=== PATIENT | female | born 1945 | race Caucasian/White ===

== ENCOUNTER → 2021-09-16 11:54 | Outpatient (BNVA) | payer MEDICARE, SELFPAY | PROVIDERS: Visit Provider Nurse Practitioner Family | DX: E55.9 Vitamin D deficiency, unspecified (principal); Z92.3 Personal history of irradiation; Z79.899 Other long term (current) drug therapy; Z13.6 Encounter for screening for cardiovascular disorders; I10 Essential (primary) hypertension; F41.9 Anxiety disorder, unspecified; F32.A Depression, unspecified; Z76.89 Persons encountering health services in other specified circumstances | CPT/HCPCS: 80053; 80061; 81003; 82306; 83036; 84436; 84439; 84443; 84480; 85025 ==

== ENCOUNTER → 2021-10-07 10:23 | Outpatient (BNVA) | payer MEDICARE, MEDICAID, SELFPAY | PROVIDERS: PCP Nurse Practitioner Family; Visit Provider Internal Medicine | DX: E89.0 Postprocedural hypothyroidism (principal); Z92.3 Personal history of irradiation; E04.1 Nontoxic single thyroid nodule | CPT/HCPCS: 99204 ==

== ENCOUNTER → 2021-11-11 15:10 | Outpatient (BNVA) | payer MEDICARE, SELFPAY | PROVIDERS: PCP Nurse Practitioner Family; Visit Provider Nurse Practitioner Family | DX: E03.9 Hypothyroidism, unspecified (principal) | CPT/HCPCS: 83516; 84439; 84480; 86800 ==

== ENCOUNTER → 2021-12-07 09:48 | Outpatient (BNVA) | payer MEDICARE, MEDICAID, SELFPAY | PROVIDERS: PCP Nurse Practitioner Family; Visit Provider Internal Medicine | DX: E89.0 Postprocedural hypothyroidism (principal); E04.1 Nontoxic single thyroid nodule | CPT/HCPCS: 84439; 84443; 84480; 86376 ==

== ENCOUNTER 2021-12-16 09:51 | Outpatient (CLI) | payer MEDICARE, MEDICAID, SELFPAY ==
--- NOTE | 2021-12-16 10:15 | US_ITS ---
WS: [id number] THYROID ULTRASOUND HISTORY: thyroid nodules COMPARISON: None available. Right lobe: 1.5 cm x 2.1 cm x 5.0 cm (w x ap x l). Volume: 8.3 cm3. Mildly enlarged heterogeneous thyroid. There is a mixture of increased echogenicity and decreased ech ogenicity with increased vascularity. The entire gland is very nodular without a discrete focal nodul e or calcification. Left lobe: 1.4 cm x 1.5 cm x 2.1 cm (w x ap x l). Volume: 2.3 cm3. Small thyroid. Thyroid is very heterogeneous with multiple small nodules of variable echogenicity and increased vascularity. There is no discrete nodule which is more suspicious than another. No calcifi cations. Isthmus: 0.4 cm. US/US thyroid [id number] IMPRESSION: 1. Enlarged heterogeneous nodular goiter, bilateral. Diffuse increased vascula rity. There are numerous nodules which are ill-defined. There is no one discret e nodule which is more concerning than another. The entire gland is nodular. Th yroid neoplasm would be difficult to exclude or localized. 2. No adenopathy.
== END 2021-12-16 09:52 | disposition home or self-care (01) ==
LOC: RAD 09:57
PROVIDERS: PCP Nurse Practitioner Family; Visit Provider Internal Medicine
DX: E03.9 Hypothyroidism, unspecified (principal)
CPT/HCPCS: 76536

== ENCOUNTER → 2021-12-17 09:18 | Outpatient (BNVA) | payer MEDICARE, MEDICAID, SELFPAY | PROVIDERS: PCP Nurse Practitioner Family; Visit Provider Internal Medicine | DX: F32.A Depression, unspecified (principal); F41.9 Anxiety disorder, unspecified | CPT/HCPCS: 84439 ==

== ENCOUNTER → 2021-12-18 09:56 | Outpatient (BNVA) | payer MEDICARE, MEDICAID, SELFPAY | PROVIDERS: PCP Nurse Practitioner Family; Visit Provider Internal Medicine | DX: E05.00 Thyrotoxicosis with diffuse goiter without thyrotoxic crisis or storm (principal); E04.1 Nontoxic single thyroid nodule; E89.0 Postprocedural hypothyroidism; F41.9 Anxiety disorder, unspecified; F32.A Depression, unspecified; Z92.3 Personal history of irradiation | CPT/HCPCS: 99214 ==

== ENCOUNTER → 2022-01-14 08:16 | Outpatient (BNVA) | payer MEDICARE, MEDICAID, SELFPAY | PROVIDERS: PCP Nurse Practitioner Family; Visit Provider Internal Medicine | DX: E04.1 Nontoxic single thyroid nodule (principal); E05.00 Thyrotoxicosis with diffuse goiter without thyrotoxic crisis or storm; F32.A Depression, unspecified; F41.9 Anxiety disorder, unspecified | CPT/HCPCS: 84439; 84443; 84480 ==

== ENCOUNTER → 2022-01-15 09:25 | Outpatient (BNVA) | payer MEDICARE, MEDICAID, SELFPAY | PROVIDERS: PCP Nurse Practitioner Family; Visit Provider Internal Medicine | DX: E89.0 Postprocedural hypothyroidism (principal); E05.00 Thyrotoxicosis with diffuse goiter without thyrotoxic crisis or storm; E04.1 Nontoxic single thyroid nodule; F41.9 Anxiety disorder, unspecified; F32.A Depression, unspecified; Z92.3 Personal history of irradiation | CPT/HCPCS: 99214 ==

== ENCOUNTER → 2022-03-19 08:48 | Outpatient (BNVA) | payer MEDICARE, MEDICAID, SELFPAY | PROVIDERS: PCP Nurse Practitioner Family; Visit Provider Internal Medicine | DX: E04.1 Nontoxic single thyroid nodule (principal); E05.00 Thyrotoxicosis with diffuse goiter without thyrotoxic crisis or storm; E89.0 Postprocedural hypothyroidism; F32.A Depression, unspecified; F41.9 Anxiety disorder, unspecified | CPT/HCPCS: 84439; 84443; 84480 ==

== ENCOUNTER → 2022-03-22 09:41 | Outpatient (BNVA) | payer MEDICARE, MEDICAID, SELFPAY | PROVIDERS: PCP Nurse Practitioner Family; Visit Provider Internal Medicine | DX: E04.1 Nontoxic single thyroid nodule (principal); E89.0 Postprocedural hypothyroidism; E05.90 Thyrotoxicosis, unspecified without thyrotoxic crisis or storm; E05.00 Thyrotoxicosis with diffuse goiter without thyrotoxic crisis or storm; F41.9 Anxiety disorder, unspecified; F32.A Depression, unspecified; Z92.3 Personal history of irradiation | CPT/HCPCS: 99214 ==

== ENCOUNTER → 2022-05-26 09:02 | Outpatient (BNVA) | payer MEDICARE, MEDICAID, SELFPAY | PROVIDERS: PCP Nurse Practitioner Family; Visit Provider Internal Medicine | DX: E04.1 Nontoxic single thyroid nodule (principal); E05.00 Thyrotoxicosis with diffuse goiter without thyrotoxic crisis or storm; F32.A Depression, unspecified; F41.9 Anxiety disorder, unspecified | CPT/HCPCS: 84439; 84443; 84480 ==

== ENCOUNTER → 2022-05-27 10:36 | Outpatient (BNVA) | payer MEDICARE, MEDICAID, SELFPAY | PROVIDERS: PCP Nurse Practitioner Family; Visit Provider Internal Medicine | DX: Z92.3 Personal history of irradiation (principal); E89.0 Postprocedural hypothyroidism; E05.00 Thyrotoxicosis with diffuse goiter without thyrotoxic crisis or storm; E05.90 Thyrotoxicosis, unspecified without thyrotoxic crisis or storm; E04.1 Nontoxic single thyroid nodule | CPT/HCPCS: 99214 ==

== ENCOUNTER 2022-06-16 13:40 | Outpatient (CLI) | payer MEDICARE, MEDICAID, SELFPAY ==
--- NOTE | 2022-06-16 13:30 | US_ITS ---
WS: [id number] THYROID ULTRASOUND HISTORY: thyroid nodule, COMPARISON: 12/16/2021 Right lobe: 1.5 cm x 2.0 cm x 4.5 cm (w x ap x l). Volume: 6.8 cm3. Enlarged nodular thyroid similar to the prior study. These nodules are ill-defined and hyperechoic to the remaining gland. Hyperechoic nodules are typically less concerning. There is increased vasculari ty throughout the gland. There is no one discrete nodule more concerning than another. No echogenic f oci. Left lobe: 1.3 cm x 1.6 cm x 3.8 cm (w x ap x l). Volume: 4.0 cm3. Mildly enlarged heterogeneous gland with multiple ill-defined nodules. Predominantly hyperechoic nodu les. Gland is hypervascular. Isthmus: 0.4 cm. US/US thyroid [id number] IMPRESSION: 1. No interval change in appearance of the mildly enlarged, hypervascular mult inodular thyroid gland. 2. Nodules are predominantly hyperechoic which are typically less concerning t maurice hypoechoic lesions. There is no enlarging nodule or specific nodule that ap pears more concerning than another.
== END 2022-06-16 13:41 | disposition home or self-care (01) ==
LOC: RAD 13:42
PROVIDERS: PCP Nurse Practitioner Family; Visit Provider Internal Medicine
DX: E05.00 Thyrotoxicosis with diffuse goiter without thyrotoxic crisis or storm (principal); E04.1 Nontoxic single thyroid nodule; E89.0 Postprocedural hypothyroidism
CPT/HCPCS: 76536

== ENCOUNTER → 2022-07-22 09:57 | Outpatient (BNVA) | payer MEDICARE, MEDICAID, SELFPAY | PROVIDERS: Visit Provider Internal Medicine | DX: E89.0 Postprocedural hypothyroidism (principal); E03.9 Hypothyroidism, unspecified; E04.1 Nontoxic single thyroid nodule | CPT/HCPCS: 84439; 84443; 84480 ==

== ENCOUNTER → 2022-07-26 10:48 | Outpatient (BNVA) | payer MEDICARE, MEDICAID, SELFPAY | PROVIDERS: Visit Provider Internal Medicine | DX: E05.90 Thyrotoxicosis, unspecified without thyrotoxic crisis or storm (principal); E05.00 Thyrotoxicosis with diffuse goiter without thyrotoxic crisis or storm; E04.1 Nontoxic single thyroid nodule; F41.9 Anxiety disorder, unspecified; F32.A Depression, unspecified; Z92.3 Personal history of irradiation | CPT/HCPCS: 99214 ==

== ENCOUNTER → 2022-09-21 09:49 | Outpatient (BNVA) | payer MEDICARE, MEDICAID, SELFPAY | PROVIDERS: Visit Provider Internal Medicine | DX: E05.90 Thyrotoxicosis, unspecified without thyrotoxic crisis or storm (principal); F32.A Depression, unspecified; F41.9 Anxiety disorder, unspecified; E04.1 Nontoxic single thyroid nodule; E89.0 Postprocedural hypothyroidism | CPT/HCPCS: 84439; 84443 ==

== ENCOUNTER → 2022-09-23 10:52 | Outpatient (BNVA) | payer MEDICARE, MEDICAID, SELFPAY | PROVIDERS: Visit Provider Internal Medicine | DX: E89.0 Postprocedural hypothyroidism (principal); E05.00 Thyrotoxicosis with diffuse goiter without thyrotoxic crisis or storm; E05.90 Thyrotoxicosis, unspecified without thyrotoxic crisis or storm; E04.1 Nontoxic single thyroid nodule; Z92.3 Personal history of irradiation; F41.9 Anxiety disorder, unspecified; F32.A Depression, unspecified | CPT/HCPCS: 99214 ==

== ENCOUNTER → 2022-12-20 09:05 | Outpatient (BNVA) | payer MEDICARE, MEDICAID, SELFPAY | PROVIDERS: Visit Provider Internal Medicine | DX: E05.90 Thyrotoxicosis, unspecified without thyrotoxic crisis or storm (principal); F32.A Depression, unspecified; F41.9 Anxiety disorder, unspecified | CPT/HCPCS: 84439; 84443; 84480 ==

== ENCOUNTER → 2022-12-23 10:07 | Outpatient (BNVA) | payer MEDICARE, MEDICAID, SELFPAY | PROVIDERS: Visit Provider Internal Medicine | DX: E05.90 Thyrotoxicosis, unspecified without thyrotoxic crisis or storm (principal); E05.00 Thyrotoxicosis with diffuse goiter without thyrotoxic crisis or storm; E04.1 Nontoxic single thyroid nodule; E89.0 Postprocedural hypothyroidism; Z92.3 Personal history of irradiation; Z79.890 Hormone replacement therapy | CPT/HCPCS: 99214 ==

== ENCOUNTER → 2023-02-17 08:31 | Outpatient (BNVA) | payer MEDICARE, MEDICAID, SELFPAY | PROVIDERS: PCP Internal Medicine; Visit Provider Internal Medicine | DX: E05.90 Thyrotoxicosis, unspecified without thyrotoxic crisis or storm (principal); E04.1 Nontoxic single thyroid nodule | CPT/HCPCS: 84439; 84443; 84480 ==

== ENCOUNTER → 2023-02-22 09:02 | Outpatient (BNVA) | payer MEDICARE, MEDICAID, SELFPAY | PROVIDERS: PCP Internal Medicine; Visit Provider Internal Medicine | DX: E05.90 Thyrotoxicosis, unspecified without thyrotoxic crisis or storm (principal); E05.00 Thyrotoxicosis with diffuse goiter without thyrotoxic crisis or storm; E89.0 Postprocedural hypothyroidism; E04.1 Nontoxic single thyroid nodule; Z92.3 Personal history of irradiation; Z79.890 Hormone replacement therapy | CPT/HCPCS: 99214 ==

== ENCOUNTER 2023-03-10 10:08 | Outpatient (CLI) | payer MEDICARE, MEDICAID, SELFPAY ==
--- NOTE | 2023-03-10 10:45 | US_ITS ---
WS: [id number] Thyroid ultrasound, 03/10/2023 Clinical Data: thyroid nodule Comparison: Thyroid ultrasound, 06/16/2022 Findings: The right lobe of thyroid measures 4.5 cm x 1.4 cm x 1.8 cm. The left lobe measures 3.4 cm x 1.2 cm x 1.4 cm. The isthmus measured 0.2 mm. The echotexture of the thyroid is mixed. Both lobes of the thyroid show unchanged nodules. The larges t right lobe nodule measures 0.73 x 0.76 x 0.87 cm. There are unchanged lymph nodes inferior to the l eft submandibular gland. US/US thyroid [id number] Impression: Unchanged multinodular goiter.
== END 2023-03-10 10:09 | disposition home or self-care (01) ==
LOC: RAD 10:12
PROVIDERS: PCP Internal Medicine; Visit Provider Internal Medicine
DX: E04.1 Nontoxic single thyroid nodule (principal)
CPT/HCPCS: 76536

== ENCOUNTER → 2023-05-02 08:34 | Outpatient (BNVA) | payer MEDICARE, MEDICAID, SELFPAY | PROVIDERS: PCP Internal Medicine; Visit Provider Internal Medicine | DX: E04.1 Nontoxic single thyroid nodule (principal); E05.00 Thyrotoxicosis with diffuse goiter without thyrotoxic crisis or storm; E89.0 Postprocedural hypothyroidism; F32.A Depression, unspecified; F41.9 Anxiety disorder, unspecified; Z92.3 Personal history of irradiation | CPT/HCPCS: 84439 ==

== ENCOUNTER → 2023-05-04 09:56 | Outpatient (BNVA) | payer MEDICARE, MEDICAID, SELFPAY | PROVIDERS: PCP Nurse Practitioner; Visit Provider Internal Medicine | DX: E05.90 Thyrotoxicosis, unspecified without thyrotoxic crisis or storm (principal); Z92.3 Personal history of irradiation; E89.0 Postprocedural hypothyroidism; E05.00 Thyrotoxicosis with diffuse goiter without thyrotoxic crisis or storm; E04.1 Nontoxic single thyroid nodule; Z79.890 Hormone replacement therapy | CPT/HCPCS: 99214 ==

== ENCOUNTER → 2023-06-30 08:17 | Outpatient (BNVA) | payer MEDICARE, MEDICAID, SELFPAY | PROVIDERS: PCP Nurse Practitioner; Visit Provider Internal Medicine | DX: E04.1 Nontoxic single thyroid nodule (principal); E05.00 Thyrotoxicosis with diffuse goiter without thyrotoxic crisis or storm; E89.0 Postprocedural hypothyroidism; Z92.3 Personal history of irradiation; F32.A Depression, unspecified; F41.9 Anxiety disorder, unspecified; E03.9 Hypothyroidism, unspecified | CPT/HCPCS: 84439; 84443; 84480 ==

== ENCOUNTER → 2023-07-04 13:34 | Outpatient (BNVA) | payer MEDICARE, MEDICAID, SELFPAY | PROVIDERS: PCP Nurse Practitioner; Visit Provider Internal Medicine | DX: F41.9 Anxiety disorder, unspecified (principal); F32.A Depression, unspecified; E05.90 Thyrotoxicosis, unspecified without thyrotoxic crisis or storm; Z92.3 Personal history of irradiation; E89.0 Postprocedural hypothyroidism; E05.00 Thyrotoxicosis with diffuse goiter without thyrotoxic crisis or storm; E04.1 Nontoxic single thyroid nodule; Z79.890 Hormone replacement therapy | CPT/HCPCS: 99214 ==

== ENCOUNTER → 2023-08-24 08:39 | Outpatient (BNVA) | payer MEDICARE, MEDICAID, SELFPAY | PROVIDERS: PCP Nurse Practitioner; Visit Provider Internal Medicine | DX: E04.1 Nontoxic single thyroid nodule (principal); E05.00 Thyrotoxicosis with diffuse goiter without thyrotoxic crisis or storm; E89.0 Postprocedural hypothyroidism; F32.A Depression, unspecified; F41.9 Anxiety disorder, unspecified; Z92.3 Personal history of irradiation; E03.9 Hypothyroidism, unspecified | CPT/HCPCS: 84439; 84443 ==

== ENCOUNTER → 2023-11-08 10:16 | Outpatient (BNVA) | payer MEDICARE, MEDICAID, SELFPAY | PROVIDERS: PCP Nurse Practitioner; Visit Provider Internal Medicine | DX: F41.9 Anxiety disorder, unspecified (principal); F32.A Depression, unspecified; E89.0 Postprocedural hypothyroidism; E05.00 Thyrotoxicosis with diffuse goiter without thyrotoxic crisis or storm; E04.1 Nontoxic single thyroid nodule; E55.9 Vitamin D deficiency, unspecified; Z79.899 Other long term (current) drug therapy | CPT/HCPCS: 80053; 80061; 81003; 82306; 83036; 84439; 84443; 84480; 85025 ==

== ENCOUNTER → 2023-11-17 11:00 | Outpatient (BNVA) | payer MEDICARE, MEDICAID, SELFPAY | PROVIDERS: PCP Nurse Practitioner Family; Visit Provider Internal Medicine | DX: E89.0 Postprocedural hypothyroidism (principal); Z92.3 Personal history of irradiation; E05.00 Thyrotoxicosis with diffuse goiter without thyrotoxic crisis or storm; E04.1 Nontoxic single thyroid nodule; R42 Dizziness and giddiness; Z79.890 Hormone replacement therapy | CPT/HCPCS: 99214 ==

== ENCOUNTER → 2024-01-30 08:31 | Outpatient (BNVA) | payer MEDICARE, MEDICAID, SELFPAY | PROVIDERS: PCP Nurse Practitioner Family; Visit Provider Internal Medicine | DX: E89.0 Postprocedural hypothyroidism (principal) | CPT/HCPCS: 84439; 84443 ==

== ENCOUNTER → 2024-02-01 11:14 | Outpatient (BNVA) | payer MEDICARE, MEDICAID, SELFPAY | PROVIDERS: PCP Nurse Practitioner Family; Visit Provider Internal Medicine | DX: Z92.3 Personal history of irradiation; E05.00 Thyrotoxicosis with diffuse goiter without thyrotoxic crisis or storm; E89.0 Postprocedural hypothyroidism; E04.1 Nontoxic single thyroid nodule; Z79.890 Hormone replacement therapy | CPT/HCPCS: 99214 ==

== ENCOUNTER 2024-02-15 08:34 | Outpatient (CLI) | payer MEDICARE, MEDICAID, SELFPAY ==
--- NOTE | 2024-02-15 09:00 | US_ITS ---
WS: [id number] THYROID ULTRASOUND HISTORY: thyroid nodules COMPARISON: 03/10/2023 Right lobe: 1.3 cm x 2.0 cm x 3.2 cm (w x ap x l). Volume: 3.8 cm3. Small atrophic nodular thyroid. Very heterogeneous remaining gland. There is no discrete mass identif ied. Ill-defined nodular appearance of the gland. Left lobe: 1.0 cm x 1.8 cm x 3.8 cm (w x ap x l). Volume: 3.2 cm3. Small nodular heterogeneous thyroid. Small nodules confluently throughout the gland. No increased vas cularity. Isthmus: No isthmus thyroid tissue identified. No adenopathy. IMPRESSION: 1. By history status post removal of the isthmus portion of the thyroid gland. 2. Atrophic very nodular heterogeneous gland remains. Similar to the study of 03/10/2023. No discrete mass or nodule identified that has changed.
== END 2024-02-15 08:35 | disposition home or self-care (01) ==
LOC: RAD 08:35
PROVIDERS: PCP Nurse Practitioner Family; Visit Provider Internal Medicine
DX: E04.1 Nontoxic single thyroid nodule (principal); E89.0 Postprocedural hypothyroidism; E05.90 Thyrotoxicosis, unspecified without thyrotoxic crisis or storm
CPT/HCPCS: 76536

== ENCOUNTER → 2024-03-30 08:34 | Outpatient (BNVA) | payer MEDICARE, MEDICAID, SELFPAY | PROVIDERS: PCP Nurse Practitioner Family; Visit Provider Internal Medicine | DX: F32.A Depression, unspecified (principal); F41.9 Anxiety disorder, unspecified; E05.90 Thyrotoxicosis, unspecified without thyrotoxic crisis or storm; Z92.3 Personal history of irradiation; E05.00 Thyrotoxicosis with diffuse goiter without thyrotoxic crisis or storm; E89.0 Postprocedural hypothyroidism; E03.9 Hypothyroidism, unspecified; E04.1 Nontoxic single thyroid nodule | CPT/HCPCS: 84439; 84443; 84480 ==

== ENCOUNTER → 2024-04-03 10:47 | Outpatient (BNVA) | payer MEDICARE, MEDICAID, SELFPAY | PROVIDERS: PCP Nurse Practitioner Family; Visit Provider Internal Medicine | DX: E05.00 Thyrotoxicosis with diffuse goiter without thyrotoxic crisis or storm; E04.1 Nontoxic single thyroid nodule; Z92.3 Personal history of irradiation; E89.0 Postprocedural hypothyroidism; Z79.890 Hormone replacement therapy | CPT/HCPCS: 99214 ==

== ENCOUNTER → 2024-07-24 08:09 | Outpatient (BNVA) | payer MEDICARE, MEDICAID, SELFPAY | PROVIDERS: PCP Nurse Practitioner Family; Visit Provider Internal Medicine | DX: F32.A Depression, unspecified (principal); F41.9 Anxiety disorder, unspecified; E05.90 Thyrotoxicosis, unspecified without thyrotoxic crisis or storm; E05.00 Thyrotoxicosis with diffuse goiter without thyrotoxic crisis or storm; E04.1 Nontoxic single thyroid nodule | CPT/HCPCS: 84439; 84443; 84480 ==

== ENCOUNTER → 2024-07-30 10:55 | Outpatient (BNVA) | payer MEDICARE, MEDICAID, SELFPAY | PROVIDERS: PCP Nurse Practitioner Family; Visit Provider Internal Medicine | DX: F41.9 Anxiety disorder, unspecified (principal); F32.A Depression, unspecified; Z92.3 Personal history of irradiation; E89.0 Postprocedural hypothyroidism; E05.00 Thyrotoxicosis with diffuse goiter without thyrotoxic crisis or storm; E04.1 Nontoxic single thyroid nodule; R63.5 Abnormal weight gain; Z79.890 Hormone replacement therapy; Z68.34 Body mass index [BMI] 34.0-34.9, adult | CPT/HCPCS: 99214 ==

== ENCOUNTER → 2025-01-14 08:12 | Outpatient (BNVA) | payer MEDICARE, MEDICAID, SELFPAY | PROVIDERS: PCP Nurse Practitioner Family; Visit Provider Internal Medicine | DX: F32.A Depression, unspecified (principal); F41.9 Anxiety disorder, unspecified | CPT/HCPCS: 84439; 84443 ==

== ENCOUNTER → 2025-01-16 10:07 | Outpatient (BNVA) | payer MEDICARE, MEDICAID, SELFPAY | PROVIDERS: PCP Nurse Practitioner Family; Visit Provider Internal Medicine | DX: F41.9 Anxiety disorder, unspecified (principal); F32.A Depression, unspecified; E05.90 Thyrotoxicosis, unspecified without thyrotoxic crisis or storm; Z92.3 Personal history of irradiation; E89.0 Postprocedural hypothyroidism; E05.00 Thyrotoxicosis with diffuse goiter without thyrotoxic crisis or storm; E04.1 Nontoxic single thyroid nodule; R63.5 Abnormal weight gain | CPT/HCPCS: 99214 ==

== ENCOUNTER → 2025-03-11 09:56 | Outpatient (BNVA) | payer MEDICARE, MEDICAID, SELFPAY | PROVIDERS: PCP Nurse Practitioner Family; Visit Provider Internal Medicine | DX: F41.9 Anxiety disorder, unspecified (principal); F32.A Depression, unspecified; I10 Essential (primary) hypertension; Z79.899 Other long term (current) drug therapy; Z13.6 Encounter for screening for cardiovascular disorders | CPT/HCPCS: 80053; 80061; 81003; 82306; 83036; 84439; 84443; 85025 ==

== ENCOUNTER → 2025-03-20 08:51 | Outpatient (BNVA) | payer MEDICARE, MEDICAID, SELFPAY | PROVIDERS: PCP Nurse Practitioner Family; Visit Provider Internal Medicine | DX: E05.90 Thyrotoxicosis, unspecified without thyrotoxic crisis or storm (principal); E89.0 Postprocedural hypothyroidism; E05.00 Thyrotoxicosis with diffuse goiter without thyrotoxic crisis or storm; E04.1 Nontoxic single thyroid nodule | CPT/HCPCS: 99214 ==

== ENCOUNTER → 2025-07-15 10:07 | Outpatient (BNVA) | payer MEDICARE, MEDICAID, SELFPAY | PROVIDERS: PCP Nurse Practitioner Family; Visit Provider Internal Medicine | DX: F32.A Depression, unspecified (principal); F41.9 Anxiety disorder, unspecified; E05.90 Thyrotoxicosis, unspecified without thyrotoxic crisis or storm | CPT/HCPCS: 84439; 84443; 84480 ==

== ENCOUNTER → 2025-07-17 09:00 | Outpatient (BNVA) | payer MEDICARE, MEDICAID, SELFPAY | PROVIDERS: PCP Nurse Practitioner Family; Visit Provider Internal Medicine | DX: E05.00 Thyrotoxicosis with diffuse goiter without thyrotoxic crisis or storm (principal); Z92.3 Personal history of irradiation; Z90.89 Acquired absence of other organs; Z98.890 Other specified postprocedural states; E04.1 Nontoxic single thyroid nodule; R63.5 Abnormal weight gain | CPT/HCPCS: 99214 ==

== ENCOUNTER 2025-08-10 13:25 | Inpatient (IN) | payer MEDICARE, MEDICAID, SELFPAY ==
--- OUTSIDE RECORDS SUMMARY | 2025-08-06 16:50 | XMS_ITS | Encounter Summary ---
Author Organization [facility] Address [address] [place] [address] Care Team Providers Care Manager Stone Name Role Phone Unavailable Primary Care Provider Unavailabl e Reason for Visit * Reason Comments Abdominal Pain Encounter Details Date Type Department Care Team (Late st Contact Info) Description 08/06/2025 4:50 PM CDT - 08/06/2025 6:19 PM CDT Emergency [facility] Emergency Medicine [address] [address] Rich Jaocbs MD [address] [facility] [address] [place] [address] Chronic idiopathic constipation (Primary Dx); Asymptomatic bacteriuria Discharge Disposition: Home or Self Care Social History Tobacco Use Types Packs/Day Years Used Date Smoking Tobacco: Never Alcohol Use Standard Drinks/Week Comments No 0 (1 standard drink = 0.6 oz pur e alcohol) Food Insecurity Answer Date Recorded Do you find you are eating l ess than you should because you can t pay for food? No 08/06/2025 Transportation Needs Answer Date Record ed Have you gone without health care because you didn t have a way to get there? Or worry about transportation for future doctor visits, berry picker medication, etc.? No 2024 Housing Stability Answer Date Recorded Do you worry you won t have a steady place to sleep or struggle to pay rent or mortgage? No 08/06/2025 Utility Needs Answer Date Recorded Do you have difficulty payin g for utility costs (electric, water or gas bills)? No 08/06/2025 Feeling Safe Answer Date Recorded Are you in a relationship wi th someone who hurts you emotionally and/or physically? No 08/06/2025 Comments No Sex and Gender Information Value Date Recorded Sex Assigned at Not on file Legal Sex Female 11:35 AM [employer] Gender Identity Not on file Sexual Orientation Not on file documented as of this encounter Last Filed Vital Signs Vital Sign Reading Time Taken Comments Blood Pressure 143/91 08/06/2025 6:15 PM CDT Pulse 88 08/06/2025 6:15 PM CDT Temperature 36.8 C (98.2 F) 08/06/2025 4:54 PM CDT Respiratory Rate 16 08/06/2025 6:15 PM CDT Oxygen Saturation 99% 08/06/2025 6:15 PM CDT Inhaled Oxygen Concentration - - Weight 79.6 kg (175 lb 6.4 oz) 08/06/2025 4:54 P M CDT Height 162.6 cm (5' 4 ) 08/06/2025 4:54 PM CDT Body Mass Index 30.11 08/06/2025 4:54 PM CDT documented in this encounter Discharge Instructions * Discharge Instructions* Rich Jacobs MD - 08/06/2025 6:12 PM CDT Please use the Fleet enema to help with removing the stool from the rectum and the sigmoid colon aswas shown on the x-ray for you. Please also continue taking the proper dose of your levothyroxine for the thyroid, since it may play a significant role in your constipation symptoms. Please consider using MiraLAX and drinking lots of water and if you have lots of bowel movements, ensure that you are drinking either Pedialyte or Gatorade to replenish the fluid that may come out with the stool. If you do not have any success with the MiraLAX and Fleet enema, you may consider using lactulose that has been sent to your pharmacy. First you can use 20-30 g and if you have no success you may have to wait for about 4-5 hours before you should consider taking another dose of 20 g. If you have more than 3-4 bowel movements that are large, make sure that you are drinking plenty offluids again to replenish the electrolytes and fluids that you lose. If you have no improvement in your symptoms, return to the emergency department for reevaluation. * Attachments The following attachments cannot be sent through Care Everywhere. * Lactulose (Djiboutian) * Constipation (Djiboutian) documented in this encounter Medications at Time of Discharge levothyroxine 50 mcg tablet Take 50 mcg by mouth daily in the morning. enalapril-hydroCH LOROthiazide (VASERETIC) 10-25 mg Tablet Take 1 Tablet by mouth daily. escitalopram oxalate (LEXAPRO) 10 mg tablet Take 10 mg by mouth daily. lactulose (ENULOSE) 10 gram/15 mL oral solution Take 45 mL by mouth 1 time daily as needed for Constipation. 90 mL 08/06/2025 08/08/2025 documented as of this encounter ED Notes * Rukhsana Latham RN - 08/06/2025 5:02 PM CDT Provider at bedside. * Rukhsana Latham RN - 08/06/2025 4:58 PM CDT Patient arrived to the ED via private vehicle. Patient complains of lower abdominal pain for 2 months and it is intermittently. Patient states she had a BM 3 days ago and that is normal for her. Patient denies loose stools and denies fever. Patient also denies nausea and vomiting. Patient states she has been passing a lot of gas until 2 weeks about and now she is feeling like she is burping a lot. Patient denies pain during thi triage but states the pain hits every 15 minutes. Patient states she has a appt to see her PCP tomorrow morning but her daughter wanted her to be seen tonight due to her daughter going out of town tomorrow. * Rich Jacobs MD - 08/06/2025 4:48 PM CDT 08/06/25 5:11 PM HISTORY OF PRESENT ILLNESS History of Present Illness This is a patient with a history of hypothyroidism presenting with abdominal pain and constipation. The patient reports experiencing severe abdominal pain every 15 minutes, which subsides quickly. This has been ongoing for approximately a month. Initially, she was passing gas frequently, but this has ceased and she has started belching. She describes a sensation of her stomach rumbling. Her last bowel movement was 3 days ago, which is typical for her. Prior to this, she had small, infrequent bowel movements. She does not experience any pain or difficulty with urination or increased frequency of urination. Her stools are not hard, and she has not vomited. She has tried MiraLAX without success and occasionally uses a stool softener. The patient has thyroid disease and takes levothyroxine. Her thyroid was last checked [address] Moran in [place], and she is scheduled to see her again in September. Her levels were low, so her medication dose was increased. She reports feeling unwell when her thyroid levels are off, butfeels better and more active when her medication is adjusted. She also notes hair loss when her thyroid levels are low. The patient has had two falls at home in the last month, but stated that it was mechanical due to slipper she was wearing. PAST SURGICAL HISTORY: , cholecystectomy, partial hysterectomy (retains ovaries). PAST MEDICAL HISTORY REVIEWED MEDICAL: Patient has no past medical history on file. SURGICAL: Patient has a past surgical history that includes section; hysterectomy; wrist fracture tx; ankle fracture tx; thyroid surgery; and cholecystectomy. ALLERGIES Codeine, Penicillin, and Sulfa (sulfonamide antibiotics) PHYSICAL EXAM INITIAL VS BP: 135/85 (08/06/251653), Heart Rate: 95 bpm (08/06/251653), Resp: 20 (08/06/251653), Pulse: 82(08/06/25 1730), Temp: 98.2 ??F (36.8 ??C) (08/06/251653), Temp src: Temporal (08/06/251653), SpO2: 96 % (08/06/251653), Height: 5' 4 (162.6 cm) (08/06/251653), Weight: 79.6 kg (175 lb 6.4 oz) (08/06/251653), BMI (Calculated): (!) 30.11 (08/06/251653) No LMP recorded. Patient is postmenopausal. Blood pressure (!) 143/91, pulse 88, temperature 98.2 ??F (36.8 ??C), temperature source Temporal, resp. rate 16, height 5' 4 (1.626 m), weight 79.6 kg (175 lb 6.4 oz), SpO2 99%. Physical Exam Vitals and nursing note reviewed. Constitutional: General: She is not in acute distress. Appearance: Normal appearance. She is well-developed. She is obese. She is not ill-appearing. HENT: Head: Normocephalic. Mouth/Throat: Mouth: Mucous membranes are moist. Eyes: General: No scleral icterus. Extraocular Movements: Extraocular movements intact. Conjunctiva/sclera: Conjunctivae normal. Pupils: Pupils are equal, round, and reactive to light. Cardiovascular: Rate and Rhythm: Normal rate and regular rhythm. Pulses: Normal pulses. Pulmonary: Effort: Pulmonary effort is normal. No respiratory distress. Abdominal: General: A surgical scar is present. Palpations: Abdomen is soft. Tenderness: There is abdominal tenderness in the periumbilical area, left upper quadrant and left lower quadrant. There is no right CVA tenderness, left CVA tenderness, guarding or rebound. Negative signs include Donovan's sign, Rovsing's sign and McBurney's sign. Hernia: No hernia is present. Comments: Multiple surgical scars. Abdomen is irregular in shape from the surgical interventions. Musculoskeletal: General: Normal range of motion. Cervical back: Normal range of motion and neck supple. Skin: General: Skin is warm and dry. Capillary Refill: Capillary refill takes less than 2 seconds. Coloration: Skin is not jaundiced or pale. Neurological: General: No focal deficit present. Mental Status: She is alert and oriented to person, place, and time. Mental status is at baseline. Cranial Nerves: No cranial nerve deficit. Psychiatric: Mood and Affect: Mood normal. Behavior: Behavior normal. DIAGNOSTICS LAB: URINALYSIS WITH REFLEX MICROSCOPIC - Abnormal Result Value COLOR UA Yellow CLARITY UA Clear SPECIFIC GRAVITY UA 1.015 PH UA 5.5 LEUKOCYTE ESTERASE UA 1+ (*) NITRITE UA Negative PROTEIN UA Negative GLUCOSE UA Negative KETONES UA Negative UROBILINOGEN UA 0.2 BILIRUBIN UA Negative BLOOD UA 1+ (*) URINALYSIS MICROSCOPY ONLY - Abnormal WBC UA 0-2 RBC UA 0-2 BACTERIA UA 1+ (*) EPITHELIAL CELLS, URINE 0-5 URINE CULTURE RADIOLOGY: XR ABDOMEN 1 VW Radiologist Impression IMPRESSION: Stool burden is greater than average. The bowel gas pattern appears nonobstructive. Cholecystectomy clips. Elevation of the right hemidiaphragm. PROCEDURES Procedures MEDICAL DECISION MAKING AND PLAN OF CARE Assessment & Plan Initial Assessment: Symptoms suggest constipation with significant gas accumulation. The abdominal x-ray confirmed a substantial stool burden without any signs of obstruction. The urine test revealed asymptomatic bacteriuria, which does not require antibiotic treatment unless symptoms develop. ED Course: - Abdominal x-ray obtained, read by me, showing significant stool burden without obstruction. - Urine test showing asymptomatic bacteriuria. Final Assessment: Confirmed constipation with significant stool burden and asymptomatic bacteriuria. No signs of obstruction on x-ray. Clinical Impression: - Constipation - Hypothyroidism Disposition: - Follow-Up: Follow-up with Dr. Moran in 09/2025. Patient Education: Advised to continue current dose of levothyroxine, stool softener, and MiraLAX. Recommended Fleet enema for immediate relief, application of Aquaphor, consumption of prune juice, Dulcolax, and magnesium citrate if comfortable. Emphasized adequate hydration, particularly before taking MiraLAX. Prescription for lactulose provided, to be taken 3 to 4 hours apart if necessary. In case of diarrhea, ensure adequate fluid intake with Gatorade or Pedialyte to prevent dehydration. Medical Decision Making Amount and/or Complexity of Data Reviewed Radiology: ordered. Clinical Scoring & Consults . New Prescriptions for this Encounter LACTULOSE (ENULOSE) 10 GRAM/15 ML ORAL SOLUTION Take 45 mL by mouth 1 time daily as needed for Constipation. LAST VS BP: (!) 143/91 (08/06/251814), Heart Rate: 95 bpm (08/06/251653), Resp: 16 (08/06/251814), Pulse: 88 (08/06/251814), Temp: 98.2 ??F (36.8 ??C) (08/06/251653), Temp src: Temporal (08/06/251653),SpO2: 99 % (08/06/251814) CLINICAL IMPRESSION Diagnoses Diagnosis Comment Added By Time Added Chronic idiopathic constipation [K59.04] DayRich MD 08/06/2025 6:11 PM Asymptomatic bacteriuria [R82.71] Rich Jacobs MD 08/06/2025 6:11 PM DISPOSITION, EDUCATION AND MEDICATION RECONCILIATION Medications reconciled. See after visit summary for patient education on discharged patients. ED Disposition ED Disposition Discharge Condition Stable User Rich Jacobs MD Date/Time TueAug 06, 2025 6:15 PM Comment -- documented in this encounter Plan of Treatment Not on file documented as of this encounter Procedures Procedure Name Priority Date/Time Associated Diagnosis Comments XR ABDOMEN 1 VW Stat 08/06/2025 5:24 PM CDT URINALYSIS MICROSCOPY ONLY Stat 08/06/2025 5:12 PM CDT URINALYSIS W/REFLEX MICROSCOPIC Stat 08/06/2025 5:12 PM CDT URINE CULTURE Stat 08/06/2025 5:12 PM CDT documented in this encounter Results * XR ABDOMEN 1 VW (08/06/2025 5:24 PM CDT) Anatomical Region Laterality Modality Abdomen Computed Radiogr aphy 08/06/2025 5:24 PM CDT Impressions 08/06/2025 5:28 PM CDT IMPRESSION: Stool burden is greater than average. The bowel gas pattern appears nonobstructive. Cholecystectomy clips. Elevation of the right hemidiaphragm. Narrative 08/06/2025 5:28 PM CDT Exam: XR ABDOMEN 1 VW Date/Time of Exam: 08/06/2025 5:24 PM Reason For Exam: Constipation, Pain. Diagnosis: See Reason for Exam. Comparison: None. Procedure Note Gavin Cheney MD - 08/06/2025 Exam: XR ABDOMEN 1 VW Date/Time of Exam: 08/06/2025 5:24 PM Reason For Exam: Constipation, Pain. Diagnosis: See Reason for Exam. Comparison: None. IMPRESSION: Stool burden is greater than average. The bowel gas pattern appears nonobstructive. Cholecystectomy clips. Elevation of the right hemidiaphragm. us Rich Jacobs MD DIAGNOSTIC IMAGING ORDERABLES F inal Result * URINE CULTURE (08/06/2025 5:12 PM CDT) CULTURE Polymicrobial growth consistent with normal urethral jean marie and/or colonizing bacteria 08/08/2025 12:14 PM CDT [facility] Urine URINE SPECIMEN OBTAINED BY CLEAN CATCH PROCEDURE / Unknown Collection / Unknown 08/06/2025 5:12 PM CDT 08/06/2025 6:02 PM CDT us Rich Jacobs MD MICROBIOLOGY - GENERAL ORDERABL ES Final Result Performing Organization Address City/[facility]/ZIP Co de Phone Number [facility] CLIA # [id number] [address] [place] [phone] * (ABNORMAL) URINALYSIS MICROSCOPY ONLY (08/06/2025 5:12 PM CDT) WBC UA 0-2 0 - 2 /hpf 08/06/2025 5:49 PM CDT [facility] RBC UA 0-2 0 - 2 /hpf 08/06/2025 5:49 PM CDT [facility] BACTERIA UA 1+(A) Negative /hpf 08/06/2025 5:49 PM CDT [facility] EPITHELIAL CELLS, URINE 0-5 0 - 5 /hpf 08/06/2025 5:49 PM CDT [facility] Urine URINE SPECIMEN OBTAINED BY CLEAN CATCH PROCEDURE / Unknown Collection / Unknown 08/06/2025 5:12 PM CDT 08/06/2025 5:41 PM CDT us Rich Jacobs MD URINE ORDERABLES Final Result [facility] CLIA # [id number] [address] [place] [id number] * (ABNORMAL) URINALYSIS WITH REFLEX MICROSCOPIC (08/06/2025 5:12 PM CDT) COLOR UA Yellow Pale to Dark Yellow 08/06/2025 5:49 PM CDT [facility] CLARITY UA Clear Clear 08/06/2025 5:49 PM CDT [facility] SPECIFIC GRAVITY UA 1.015 1.003 - 1.035 08/06/2025 5:49 PM CDT [facility] PH UA 5.5 5.0 - 8.0 08/06/2025 5:49 PM CDT [facility] LEUKOCYTE ESTERASE UA 1+(A) Negative 08/06/2025 5:49 PM CDT [facility] NITRITE UA Negative Negative 08/06/2025 5:49 PM CDT [facility] PROTEIN UA Negative Negative 08/06/2025 5:49 PM CDT [facility] GLUCOSE UA Negative Negative 08/06/2025 5:49 PM CDT [facility] KETONES UA Negative Negative 08/06/2025 5:49 PM CDT [facility] UROBILINOGEN UA 0.2 <2.0 mg/dL 5:49 PM CDT [facility] BILIRUBIN UA Negative Negative 08/06/2025 5:49 PM CDT [facility] BLOOD UA 1+(A) Negative 08/06/2025 5:49 PM [facility] Urine URINE SPECIMEN OBTAINED BY CLEAN CATCH PROCEDURE / Unknown Collection / Unknown 08/06/2025 5:12 PM CDT 08/06/2025 5:41 PM CDT us Rich Jacobs MD URINE ORDERABLES Final Result [id number] [address] [place] [id number] documented in this encounter Visit Diagnoses Diagnosis Chronic idiopathic constipation- Primary Unspecified constipation Chronic idiopathic constipation Unspecified constipation Asymptomatic bacteriuria Other nonspecific finding on examination of urine Asymptomatic bacteriuria Other nonspecific finding on examination of urine documented in this encounter
--- OUTSIDE RECORDS SUMMARY | 2025-08-06 16:50 | XMS_ITS | Encounter Summary ---
Author Organization [employer] Address [address] [place] [address] Care Team Providers Care Aluminum Container Tester Name Role Phone Unavailable Primary Care Provider Unavailabl e Reason for Visit * Reason Comments Abdominal Pain Encounter Details Date Type Department Care Team (Late st Contact Info) Description 08/06/2025 4:50 PM CDT - 08/06/2025 6:19 PM CDT Emergency [facility] Emergency Medicine [address] [phone] Rich Jacobs MD [address] [facility] [address] [place] [address] Chronic idiopathic constipation (Primary Dx); [...] worry about transportation for future doctor visits, picker packer medication, etc.? 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 * Lactulose (Sri Lankan) * Constipation (Sri Lankan) documented in this encounter Medications at Time [...] [address] Moran in [place], and she is scheduled to see her [...] and/or colonizing bacteria 08/08/2025 12:14 PM CDT [facility] Urine URINE SPECIMEN OBTAINED BY CLEAN CATCH PROCEDURE / Unknown Collection / Unknown 08/06/2025 5:12 PM CDT 08/06/2025 6:02 PM CDT us Rich Jacobs MD MICROBIOLOGY - GENERAL ORDERABL ES Final Result Performing Organization Address City/[facility]/ZIP Co de Phone Number [facility] CLIA # [id number] [address] [place] [phone] * (ABNORMAL) URINALYSIS MICROSCOPY ONLY (08/06/2025 5:12 PM CDT) WBC UA 0-2 0 - 2 /hpf 08/06/2025 5:49 PM CDT [facility] RBC UA 0-2 0 - 2 /hpf 08/06/2025 5:49 PM CDT [facility] BACTERIA UA 1+(A) Negative /hpf 08/06/2025 5:49 PM CDT [facility] EPITHELIAL CELLS, URINE 0-5 0 - 5 /hpf 08/06/2025 5:49 PM CDT [facility] Urine URINE SPECIMEN OBTAINED BY CLEAN CATCH PROCEDURE / Unknown Collection / Unknown 08/06/2025 5:12 PM CDT 08/06/2025 5:41 PM CDT us Rich Jacobs MD URINE ORDERABLES Final Result [facility] CLIA # [id number] [address] [place] [address] * (ABNORMAL) URINALYSIS WITH REFLEX MICROSCOPIC (08/06/2025 5:12 PM CDT) COLOR UA Yellow Pale to Dark Yellow 08/06/2025 5:49 PM CDT [facility] CLARITY UA Clear Clear 08/06/2025 5:49 PM CDT [facility] SPECIFIC GRAVITY UA 1.015 1.003 - 1.035 08/06/2025 5:49 PM CDT [facility] PH UA 5.5 5.0 - 8.0 08/06/2025 5:49 PM CDT [facility] LEUKOCYTE ESTERASE UA 1+(A) Negative 08/06/2025 5:49 PM CDT [facility] NITRITE UA Negative Negative 08/06/2025 5:49 PM CDT [facility] PROTEIN UA Negative Negative 08/06/2025 5:49 PM CDT [facility] GLUCOSE UA Negative Negative 08/06/2025 5:49 PM CDT [facility] KETONES UA Negative Negative 08/06/2025 5:49 PM CDT [facility] UROBILINOGEN UA 0.2 <2.0 mg/dL 5:49 PM CDT [facility] BILIRUBIN UA Negative Negative 08/06/2025 5:49 PM CDT [facility] BLOOD UA 1+(A) Negative 08/06/2025 5:49 PM [facility] Urine URINE SPECIMEN OBTAINED BY CLEAN CATCH PROCEDURE / Unknown Collection / Unknown 08/06/2025 5:12 PM CDT 08/06/2025 5:41 PM CDT us Rich Jacobs MD URINE ORDERABLES Final Result [id number] [address] [place] [address] documented in this encounter Visit Diagnoses Diagnosis Chronic idiopathic constipation- Primary Unspecified constipation Chronic idiopathic constipation Unspecified constipation Asymptomatic bacteriuria Other nonspecific finding on examination of urine Asymptomatic bacteriuria Other nonspecific finding on examination of urine documented in this encounter
--- OUTSIDE RECORDS SUMMARY | 2025-08-08 17:25 | XMS_ITS | Encounter Summary ---
Author Organization [employer] Address [address] [place] [address] Care Team Providers Care Facetor Name Role Phone Unavailable Primary Care Provider Unavailabl e Encounter Details Date Type Department Care Team (Late st Contact Info) Description 08/08/2025 5:25 PM CDT - 08/08/2025 5:38 PM CDT Emergency [facility] Emergency Medicine [address] [place] [address] Bal Moreno MD [address] [place] [phone] Discharge Disposition: Left without being seen Social History Tobacco Use Types Packs/Day Years [...] worry about transportation for future doctor visits, shrimp picker medication, etc.? 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 Advises that she had a bowel movement x 2 in the waiting room bathroom and is feeling better. States she is now not wanting to be seen and is leaving out of the ER waitingroom doors. Daughter signing the left without being seen form. Left without being seen before triage. * Karen Lockhart RN - 08/08/2025 5:28 PM CDT Patient in the bathroom attempting to have a bowel movement documented in this encounter Plan of Treatment Not on file documented as of this encounter Visit Diagnoses Not on filedocumented in this encounter
--- OUTSIDE RECORDS SUMMARY | 2025-08-08 17:25 | XMS_ITS | Encounter Summary ---
Author Organization [employer] Address [address] [place] [address] Care Team Providers Care Teacher Home Therapy Name Role Phone Unavailable Primary Care Provider Unavailabl e Encounter Details Date Type Department Care Team (Late st Contact Info) Description 08/08/2025 5:25 PM CDT - 08/08/2025 5:38 PM CDT Emergency [facility] Emergency Medicine [address] [place] [address] Bal Moreno MD [address] [place] [phone] Discharge Disposition: Left without being seen [...] worry about transportation for future doctor visits, bulk picker medication, etc.? 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
[2025-08-10] VITALS (12 sets, daily range): BP systolic 115–147; BP diastolic 61–86; PULSE 85–93; RESP 16–18; TEMP 36.7–36.8; O2SAT 93–98; BMI 29.8
--- OUTSIDE RECORDS SUMMARY | 2025-08-10 13:28 | XMS_ITS | Patient Health Record ---
Author Organization [facility] Address [address] [place] [address] Care Team Providers Care Assembly Worker Name Role Phone DR. Dereck Sprague Primary Care Provider Allergies Allergen (clinical drug ingredient) Drug/Non Drug Allergy documented on EMR Reaction Allergy Type Onset Date Status codeine Codeine rash Drug Allergy Active Substance with sulfonamide structure and antibacterial mechanism of action (substance) Sulfa Antibiotics rash Drug Allergy Active Reason For Referral No Information Medications Medication SIG (Take, Route, Fr equency, Duration) Notes Start Date End Date Status Levothyroxine Sodium Active Lexapro Active Vaseretic Active Social History Sex Assigned At : Social History Observation Description Sex Assigned At Female Plan Of Treatment No Information Insurance Providers Payer Name Payer Address Payer Phone Subscriber Number Group Number Insured Name Patient Relationship to Insured Coverage Start Date Coverage End Date Medicare [address] [place] [address] Caro Hamiltonita Self - patient is the insured Medicaid [address] [place] [address] [phone] [id number] Alfonso Terrie Self - patient is the insured Medicaid Dental [address] [place] [address] [phone] [id number] Alfonso Terrie Self - patient is the insured [employer] [id number] [place] [address] Caro Hamiltonita Self - patient is the insured Medical (General) History Medical History History ICD Code heart murmur Thyroid disease HIGH BLOOD PRESSURE
--- OUTSIDE RECORDS SUMMARY | 2025-08-10 13:28 | XMS_ITS | Encounter Summary ---
Author Organization [employer] Address [address] [facility] Attn: Epic Prelude ADT MELANIE GOMEZ [address] Care Team Providers Care Staff Radiation Therapist Name Role Phone Unavailable Primary Care Provider Unavailabl e Encounter Details Date Type Department Care Team (Latest Contact Info) Description 08/06/2025 Travel Social History Tobacco Use Types Packs/Day Years [...] worry about transportation for future doctor visits, sampler pickup medication, etc.? 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
--- OUTSIDE RECORDS SUMMARY | 2025-08-10 13:28 | XMS_ITS | Encounter Summary ---
Author Organization [facility] Address [address] [place] [address] Care Team Providers Care Emergency Technician Name Role Phone Unavailable Primary Care Provider Unavailabl e Encounter Details Date Type Department Care Team (Late st Contact Info) Description 08/08/2025 Results Follow-Up [facility] Emergency Medicine [address] [facility] [address] [place] [address] Rich Jacobs MD [address] [facility] [address] [place] [address] URINE CULTURE Social History Tobacco Use Types Packs/Day Years [...] worry about transportation for future doctor visits, hand picker medication, etc.? 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
--- OUTSIDE RECORDS SUMMARY | 2025-08-10 13:28 | XMS_ITS | Clinical Summary ---
Author Organization [employer] [facility] Address [address] [facility] Attn: Epic Prelude ADT MELANIE GOMEZ [address] Care Team Providers Care Bioinformatics Support Specialist Name Role Phone Unavailable Primary Care Provider Unavailabl e Allergies Active Allergy Reactions Criticality Noted Date Comments Codeine Nausea and Vomiting Low 11/02/2010 Penicillin Rash Low 08/06/2025 Sulfa (Sulfonamide Antibiotics) Rash Low 03/2009 Medications levothyroxine 50 mcg tablet Take 50 mcg by mouth daily in the morning. Active enalapril-hydro CHLOROthiazide (VASERETIC) 10-25 mg Tablet Take 1 Tablet by mouth daily. Active escitalopram oxalate (LEXAPRO) 10 mg tablet Take 10 mg by mouth daily. Active lactulose (ENULOSE) 10 gram/15 mL oral solution Take 45 mL by mouth 1 time daily as needed for Constipatio n. 90 mL 08/06/2025 Active Problems Problem Noted Date Diagnosed Date Chronic idiopathic constipation 08/06/2025 Asymptomatic bacteriuria 08/06/2025 Encounters Date Type Department Care Team Description 08/08/2025 5:25 PM CDT - 08/08/2025 5:38 PM CDT Emergency [facility] Emergency Medicine [address] [facility] [address] [place] [phone] Bal Moreno MD Discharge Disposition: Left without being seen 08/08/2025 Results Follow-Up [facility] Emergency Medicine [address] [place] [phone] Rich Jacobs MD URINE CULTURE 08/06/2025 4:50 PM CDT - 08/06/2025 6:19 PM CDT Emergency [facility] Emergency Medicine [address] [place] [phone] Rich Jacobs MD Chronic idiopathic constipation (Primary Dx); Asymptomatic bacteriuria Discharge Disposition: Home or Self Care 08/06/2025 Travel from Last 3 Months Family History Medical History Relation Name Comments Colon Cancer Father Cancer Sister Relation Name Status Comments Father Sister Social History Tobacco Use Types Packs/Day Years [...] worry about transportation for future doctor visits, pick pack worker medication, etc.? 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 Gender Identity Not on file Sexual Orientation Not on file Last Filed Vital Signs Vital Sign Reading [...] Mass Index 30.11 08/06/2025 4:54 PM CDT Plan of Treatment Health Maintenance Due Date Last Done Comments DTAP/TDAP/TD VACCINES (1 - Tdap) 1964 Traditional Medicare (ACO) Annual Wellness Visit 08/27 PNEUMOCOCCAL VACCINE 50+ YEARS (1 of 1 - PCV) 08/27/19 95 ZOSTER VACCINE (1 of 2) 1995 OSTEOPOROSIS SCREENING 2010 RSV VACCINE (60+ or ) (1 - 1-dose 75+ series) 2020 INFLUENZA VACCINE (#1) 2025 08/14/2020 Procedures Procedure Name Priority Date/Time Associated Diagnosis Comments XR ABDOMEN 1 VW Stat 08/06/2025 5:24 PM CDT URINALYSIS MICROSCOPY ONLY Stat 08/06/2025 5:12 PM CDT URINALYSIS W/REFLEX MICROSCOPIC Stat 08/06/2025 5:12 PM CDT URINE CULTURE Stat 08/06/2025 5:12 PM CDT from Last 3 Months Results * XR ABDOMEN 1 VW (08/06/2025 [...] DIAGNOSTIC IMAGING ORDERABLES F inal Result * (ABNORMAL) URINALYSIS MICROSCOPY ONLY (08/06/2025 5:12 PM CDT) WBC UA 0-2 0 - 2 /hpf 08/06/2025 5:49 PM CDT [facility] RBC UA 0-2 0 - 2 /hpf 08/06/2025 5:49 PM CDT [facility] BACTERIA UA 1+(A) Negative /hpf 08/06/2025 5:49 PM CDT [facility] EPITHELIAL CELLS, URINE 0-5 0 - 5 /hpf 08/06/2025 5:49 PM CDT [facility] Urine URINE SPECIMEN OBTAINED BY CLEAN CATCH PROCEDURE / Unknown Collection / Unknown 08/06/2025 5:12 PM CDT 08/06/2025 5:41 PM CDT us Rich Jacobs MD URINE ORDERABLES Final Result [facility] CLIA # [id number] [address] [place] [address] * (ABNORMAL) URINALYSIS WITH REFLEX MICROSCOPIC (08/06/2025 5:12 PM CDT) COLOR UA Yellow Pale to Dark Yellow 08/06/2025 5:49 PM CDT [facility] CLARITY UA Clear Clear 08/06/2025 5:49 PM CDT [facility] SPECIFIC GRAVITY UA 1.015 1.003 - 1.035 08/06/2025 5:49 PM CDT [facility] PH UA 5.5 5.0 - 8.0 08/06/2025 5:49 PM CDT [facility] LEUKOCYTE ESTERASE UA 1+(A) Negative 08/06/2025 5:49 PM CDT [facility] NITRITE UA Negative Negative 08/06/2025 5:49 PM CDT [facility] PROTEIN UA Negative Negative 08/06/2025 5:49 PM CDT [facility] GLUCOSE UA Negative Negative 08/06/2025 5:49 PM CDT [facility] KETONES UA Negative Negative 08/06/2025 5:49 PM CDT [facility] UROBILINOGEN UA 0.2 <2.0 mg/dL 5:49 PM CDT [facility] BILIRUBIN UA Negative Negative 08/06/2025 5:49 PM CDT [facility] BLOOD UA 1+(A) Negative 08/06/2025 5:49 PM CDT [facility] Urine URINE SPECIMEN OBTAINED BY CLEAN CATCH PROCEDURE / Unknown Collection / Unknown 08/06/2025 5:12 PM CDT 08/06/2025 5:41 PM CDT Rich Jacobs MD URINE ORDERABLES Final Result [facility] CLIA # [id number] [address] [place] [address] * URINE CULTURE (08/06/2025 5:12 PM CDT) CULTURE Polymicrobial growth consistent with normal urethral jean marie and/or colonizing bacteria 08/08/2025 12:14 PM CDT [facility] Urine URINE SPECIMEN OBTAINED BY CLEAN CATCH PROCEDURE / Unknown Collection / Unknown 08/06/2025 5:12 PM CDT 08/06/2025 6:02 PM CDT Rich Jacobs MD MICROBIOLOGY - GENERAL ORDERABL ES Final Result [facility] CLIA # [id number] [address] [place] [address] from Last 3 Months Insurance MEDICAID [place] MED[place]ARE PART A AND B
--- NOTE | 2025-08-10 13:32 | CTR_ITS ---
PROCEDURE INFORMATION: Exam: CT Abdomen And Pelvis Without Contrast Exam date and time: 08/10/2025 02:27 PM Age: 79 years old Clinical indication: Bloating and vomiting; Abdominal pain; Periumbilical; Prior surgery; Surgery date: 6+ months; Surgery type: Hyster, gb, c section; Additional info: Vomiting/abd pain TECHNIQUE: Imaging protocol: Computed tomography of the abdomen and pelvis without contrast. Radiation optimization: All CT scans at this facility use at least one of these dose optimization techniques: automated exposure control; mA and/or kV adjustment per patient size (includes targeted exams where dose is matched to clinical indication); or iterative reconstruction. COMPARISON: No relevant prior studies available. RADIATION DOSE METRICS: Total DLP (mGy-cm): 771.44 FINDINGS: Lungs: 3 mm right middle lobe pulmonary nodule (series 3, image 2). Lobulated and possibly partially calcified medial right middle lobe nodular opacity measuring 1.2 cm (series 3, image 5). 7 mm right lower lobe pulmonary nodule (series 3, image 3). Pleural spaces: Pleural thickening along the right major fissure. Coronary arteries: Coronary artery calcifications. Diaphragm: Hiatal hernia. Liver: Punctate calcification along the peripheral surface of the liver. Gallbladder and biliary ducts: Prior cholecystectomy. Pancreas: Pancreatic atrophy. Spleen: Splenic calcifications. Adrenal glands: Punctate left adrenal calcification. Kidneys and ureters: Probable right renal cyst of the inferior pole. No renal calculi. Stomach and bowel: Pneumatosis intestinalis involving the ascending colon to the hepatic flexure. Appendix: No evidence of appendicitis. Intraperitoneal space: Small amount of free fluid. No free air. Vasculature: Atherosclerotic vascular disease. No portal venous gas. Lymph nodes: Unremarkable. No enlarged lymph nodes. Urinary bladder: Unremarkable as visualized. Reproductive: Status post hysterectomy. Bones/joints: Mild degenerative changes of the spine. Multilevel facet arthropathy. Soft tissues: Unremarkable. CT/CT abdomen pelvis wo con [id number] IMPRESSION: 1. Multiple right-sided pulmonary nodules, the largest measuring 1.2 cm.For both low risk and high risk patients, consider CT Chest at 3 months, PET/CT, or biopsy. (Reference: Talha). 2. Atherosclerotic vascular disease. Coronary artery calcifications. 3. Hiatal hernia. 4. 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 Differential considerations include bowel necrosis, post endoscopy, medication induced and other. No portal venous gas. No free air. Moderate air distension of the transverse colon. Moderate stool load in the descending and sigmoid colon. 5. Small amount of free fluid. COMMENTS: Consistent with the [employer]'s Incidental Findings Committee white paper (J Am Sammy Radiol 2018): Any incidental renal lesion less than 1 cm or classified as too small to characterize, or any incidental cystic renal lesion characterized as simple-appearing, is likely benign. No follow-up imaging is recommended for these lesions per consensus recommendations based on imaging criteria. REFERENCES: Talha Smith et al. Guidelines for Management of Incidental Pulmonary Nodules Detected on CT Images: From the Fleischner Society 2017. Radiology. 2017;284(1):228-243.
--- NOTE | 2025-08-10 13:32 | W.ED.ABDPA2 ---
HPI - Abdominal Pain General: Chief Complaint: Abdominal Pain Stated Complaint: constipation, vomiting Time Seen by Provider: 08/10/25 13:27 Source: patient Mode of arrival: ambulatory Limitations: no limitations History of Present Illness: 79-year-old female states been having constipation over the last week. States she has been trying laxatives and stool softeners and enemas with minimal resolution. She had some abdominal cramping she rates it a 2 out of 10 had some vomiting today denies any severe pain denies any worsening from factors. denies fever Associated Symptoms: Reports constipation and vomiting Related Data Home Medications ?Medication ?Instructions ?Recorded ?Confirmed enalapril 10 1 tab PO DAILY 08/10/25 08/10/25 mg-hydrochlorothiazide 25 mg tablet Previous Rx's ?Medication ?Instructions ?Recorded escitalopram oxalate 10 mg tablet 10 mg PO DAILY 90 days #90 tabs 03/11/25 levothyroxine 25 mcg tablet See Rx Instructions .Route 07/17/25 .COMPLEX #120 tabs Allergies Allergy/AdvReac Type Severity Reaction Status Date / Time Sulfa (Sulfonamide Allergy Intermediate sick rash Verified 03/19/25 16:30 Antibiotics) codeine Allergy made her Verified 03/19/25 16:30 feel off Penicillins Allergy Unknown Verified 03/20/25 09:29 Review of Systems GI: Reports: abdominal pain, vomiting and constipation PFSH ED PFSH: Medical History Mammogram declined Hypothyroid Hypothyroid Encounter to establish care Vitamin D deficiency Medication management Hypertension screen Anxiety and depression History of cardiac murmur History of thyroid storm Essential hypertension December 2020 Prolapsed bladder H/O radioactive iodine thyroid ablation November and December 2020 Surgical History H/O wrist surgery S/P subtotal thyroidectomy 46 years ago [facility] S/P cholecystectomy History of ankle surgery History of hysterectomy History of appendectomy Family History Other Hypertension Social History Smoking and tobacco/nicotine status: unknown if used tobacco/nicotine Physical Exam Const: COMMON NORMALS: no acute distress, patient oriented x3 and healthy appearing HENMT: COMMON NORMALS: normocephalic and atraumatic HEAD & SCALP: normocephalic and atraumatic Eye: COMMON NORMALS: conjunctivae normal CONJUNCTIVA: Yes conjunctivae normal Neck/C-Spine: COMMON NORMALS: full ROM and supple Chest: COMMONS NORMALS: normal inspection of the chest Resp: COMMON NORMALS: normal respiratory effort Cardio: COMMON NORMALS: regular rate, regular rhythm and No murmurs present (Cardio) RATE: regular rate RHYTHM: regular rhythm GI: COMMON NORMALS: Soft to palpation, non-tender and no masses PALPATION: Yes Soft to palpation OTHER: slight distention to abd Extremity: COMMON NORMALS: normal to inspection and full ROM Neuro: COMMON NORMALS: patient oriented x3, moves all extremities and no focal motor deficits Psych: COMMON NORMALS: mental status grossly normal, Normal thought process present and cooperative THOUGHT PROCESS: Normal thought process present Skin: COMMON NORMALS: no rashes or lesions noted and no wounds GENERAL SKIN EXAM: no rashes or lesions noted Course Vital Signs: Vital signs: Vital Signs Pulse Rate 93 08/10/25 13:25 Respiratory Rate 18 08/10/25 13:25 Blood Pressure 147/85 08/10/25 16:36 Pulse Oximetry 96 08/10/25 16:36 Oxygen Delivery Me thod Room Air 08/10/25 16:36 MDM - Abdominal Pain Medical Decision Making Patient presents here with abdominal pain and constipation. Abdominal exam here shows mild tenderness no rigid abdomen differential includes appendicitis constipation bowel obstruction or ischemic bowel or bowel [place]. CT scan showed no signs of acute bowel perforation did have some pneumatosis but her exam here does not show any signs of ischemic bowel her lactate and white count are normal. Does have severe constipation. I did have general surgeon Dr. Hope, evaluated patient and he agrees does not believe that she has ischemic bowel but did recommend admission to try to help her constipation I spoke to hospitalist Dr. Canas and will admit at this time I did discuss this with the patient and went over her labs and imaging she understands agrees to plan Medical Records I reviewed the patient's medical records. Lab Data I reviewed the patient's lab results. 08/10/25 13:48 08/10/25 13:48 Labs/Radiology: Radiology Impressions Abdomen/Pelvis CT 08/10/25 13:32 IMPRESSION: 1. Multiple right-sided pulmonary nodules, the largest measuring 1.2 cm.For both low risk and high risk patients, consider CT Chest at 3 months, PET/CT, or biopsy. (Reference: Talha). 2. Atherosclerotic vascular disease. Coronary artery calcifications. 3. Hiatal hernia. 4. 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 Differential considerations include bowel necrosis, post endoscopy, medication induced and other. No portal venous gas. No free air. Moderate air distension of the transverse colon. Moderate stool load in the descending and sigmoid colon. 5. Small amount of free fluid. COMMENTS: Consistent with the [place] [employer] [place] [employer]'s Incidental Findings Committee white paper (J Am Sammy Radiol 2018): Any incidental renal lesion less than 1 cm or classified as too small to characterize, or any incidental cystic renal lesion characterized as simple-appearing, is likely benign. No follow-up imaging is recommended for these lesions per consensus recommendations based on imaging criteria. REFERENCES: Talha Smith, et al. Guidelines for Management of Incidental Pulmonary Nodules Detected on CT Images: From the Fleischner Society 2017. Radiology. 2017;284(1):228-243. ADDENDUM: 08/10/25 1457 COMMENT: THIS REPORT CONTAINS FINDINGS THAT MAY BE CRITICAL TO PATIENT CARE. The exam findings were verbally communicated by me to RODGER HERNANDEZ via telephone conference at 02:57 PM CDT on 08/10/2025. The findings were acknowledged and understood. Laboratory Results WBC 11.05 10^3/uL (3.29-11.43) 08/10/25 13:48 RBC 5.15 10^6/uL (3.85-5.65) 08/10/25 13:48 Hgb 13.20 g/dL (11.27-16.99) 08/10/25 13:48 Hct 40.5 % (36-47) 08/10/25 13:48 MCV 78.6 fl (85-98) L 08/10/25 13:48 MCH 25.6 pg (27-33) L 08/10/25 13:48 MCHC 32.6 g/dL (30-55) 08/10/25 13:48 RDW 17.1 % (12.1-15.1) H 08/10/25 13:48 Plt Count 490 10^3/cmm (157-399) H 08/10/25 13:48 MPV 9.1 fL (7.4-10.4) 08/10/25 13:48 Neut % (Auto) 72.4 % 08/10/25 13:48 Lymph % (Auto) 18.0 % 08/10/25 13:48 [place] % (Auto) 9.2 % 08/10/25 13:48 Eos % (Auto) 0.1 % 08/10/25 13:48 Baso % (Auto) 0.1 % 08/10/25 13:48 Neut # (Auto) 8.00 10^3/uL (1.8-7.7) H 08/10/25 13:48 Lymph # (Auto) 2.0 10^3/uL (0.8-4.8) 08/10/25 13:48 [place] # (Auto) 1.0 10^3/uL (0.2-0.9) H 08/10/25 13:48 Eos # (Auto) 0.0 10^3/uL (0.0-0.8) 08/10/25 13:48 Baso # (Auto) 0.0 10^3/uL (0.0-0.1) 08/10/25 13:48 Nucleated RBC % (auto) 0 % 08/10/25 13:48 Nucleated RBCs # 0.0 /100WBC 08/10/25 13:48 Sodium 132 mmol/L (136-145) L 08/10/25 13:48 Potassium 3.6 mmol/L (3.5-5.1) 08/10/25 13:48 Chloride 95 mmol/L (98-107) L 08/10/25 13:48 Carbon Dioxide 21 mmol/L (22-29) L 08/10/25 13:48 Anion Gap 19.6 (5-19) H 08/10/25 13:48 BUN 50 mg/dL (8-23) H 08/10/25 13:48 Creatinine 1.9 mg/dL (0.5-0.9) H 08/10/25 13:48 GFR Calculation Not Reportable 08/10/25 13:48 Glucose 138 mg/dL (65-115) H 08/10/25 13:48 Calculated Osmolality 290 mOsm/kg (285-295) 08/10/25 13:48 Lactic Acid 1.7 mmol/L (0.5-2.2) 08/10/25 13:48 Calcium 9.2 mg/dL (8.5-10.5) 08/10/25 13:48 Total Bilirubin 0.4 mg/dL (0.15-1.2) 08/10/25 13:48 AST 14 U/L (0-32) 08/10/25 13:48 ALT 8 U/L (0-33) 08/10/25 13:48 Alkaline Phosphatase 123 U/L (35-105) H 08/10/25 13:48 Total Protein 8.0 g/dL (6.6-8.7) 08/10/25 13:48 Albumin 4.0 g/dL (3.5-5.2) 08/10/25 13:48 Globulin 4.0 g/dL (1.3-4.6) 08/10/25 13:48 Lipase 24 U/L (13-60) 08/10/25 13:48 Urine Color Dark yellow (Yellow) A 08/10/25 14:14 Urine Appearance Cloudy (CLEAR) A 08/10/25 14:14 Urine pH 5.0 (5-7) 08/10/25 14:14 Ur Specific [place] 1.024 (1.005-1.030) 08/10/25 14:14 Urine Protein 1+ (Negative) A 08/10/25 14:14 Urine Glucose (UA) Negative (Normal) 08/10/25 14:14 Urine Ketones Trace (Negative) 08/10/25 14:14 Urine Blood Trace (Negative) A 08/10/25 14:14 Urine Nitrate Negative (Negative) 08/10/25 14:14 Urine Bilirubin Negative (Negative) 08/10/25 14:14 Urine Urobilinogen 1.0 mg/dL (Negative) 08/10/25 14:14 Ur Leukocyte Esterase 2+ (Negative) A 08/10/25 14:14 Urine RBC 0-4 /hpf (0-2) H 08/10/25 14:14 Urine WBC 15-25 /hpf (0-5) H 08/10/25 14:14 Ur Squamous Epith Cells 15-25 /hpf (0-5) H 08/10/25 14:14 Amorphous Sediment Not Reportable 08/10/25 14:14 Urine Bacteria 2+ /hpf (NONE) H 08/10/25 14:14 Hyaline Casts 5-10 /lpf H 08/10/25 14:14 All radiology interpretation(s) finalized by discharge Discharge Plan Discharge Patient Disposition: Admitted As Inpatient Clinical Impression: Abdominal pain, Constipation Condition: Stable Coding Level of Care Code ED [employer] for Gena Lugo
[2025-08-10 13:59] LABS: Hematocrit 40.5 % (36-47); Hemoglobin 13.20 g/dL (11.27-16.99); Mean Corpuscular HGB Conc 32.6 g/dL (30-55); Mean Corpuscular Hemoglobin 25.6 pg (27-33); Mean Corpuscular Volume 78.6 fl (85-98); Nucleated Red Blood Cells % 0 %; Platelet Count 490 10^3/cmm (157-399); Red Blood Count 5.15 10^6/uL (3.85-5.65); White Blood Count 11.05 10^3/uL (3.29-11.43)
[2025-08-10 14:18] LABS: Alanine Aminotransferase 8 U/L (0-33); Albumin Level 4.0 g/dL (3.5-5.2); Alkaline Phosphatase 123 U/L (35-105); Anion Gap 19.6 (5-19); Aspartate Amino Transferase 14 U/L (0-32); Blood Urea Nitrogen 50 mg/dL (8-23); Calcium 9.2 mg/dL (8.5-10.5); Carbon Dioxide 21 mmol/L (22-29); Chloride 95 mmol/L (98-107); Creatinine Clr Calc Pharmacy 24.1988; Globulin 4.0 g/dL (1.3-4.6); Glucose 138 mg/dL (65-115); Lipase 24 U/L (13-60); Osmolality Calculated 290 mOsm/kg (285-295); Potassium 3.6 mmol/L (3.5-5.1); Sodium 132 mmol/L (136-145); Total Protein 8.0 g/dL (6.6-8.7)
[2025-08-10 14:22] LABS: Glucose Urine UA Negative (Normal); Nitrate Urine Negative (Negative); Specific Gravity, Urine 1.024 (1.005-1.030)
[2025-08-10 14:36] LABS: Add Urine Microscopic? YES; UA Manual Slide Review YES
[2025-08-10 15:19] LABS: Lactic Sepsis W/Reflex 1.7 mmol/L (0.5-2.2)
--- NOTE | 2025-08-10 16:49 | P.CONIM_ITS ---
Providers/Reason For Consult 2 Consulting Physician/Specialty*: isael jha MD general surgery Reason for Consult*: pneumatosis and severe constipation Requesting Physician: Eulogio Carr MD ER provider Primary Care Provider: LUPE Rodriguez History of Present Illness History of Present Illness Terrie Hamilton is a 79 year old female with history of subtotal thyroidectomy for Graves disease with radioactive ablation years ago. She was told they left some thyroid where she would never need thyroid medication. About 3 weeks ago they increased her dose of thyroid medication for hypothyroidism. She normally has BM daily and not hard after she drinks coffee but over 1 week she has not had good BM. She gave herself at home her own enema about two days ago and just got out a little soft stool like baby stool with no blood or mucus. No F/C/S. She is having crampy pain over transverse colon. She has had two episodes of N/V and just some yellow bile came out. She hasn't really eaten in 4 days. She feels distended and bloated. She was seen twice at [facility] in [place] and no CT done but plain xray and sent home with lactulose with no results. Her father had colon cancer around 100 years old. She has never had colonoscopy. CT today does not show colon mass but some pneumatosis in ascending colon with long stool here and mild distention and transverse colon with air moderately distended and descending colon with long stool with even milder distention. WBC 11k and exam with mild tenderness and no rebound. Meds include lexapro for nervous condition, HTN meds and thyroid medication. She is not on a blood thinner. She has had appy, partial hysterectomy, c sections, cholecystectomy. Review of Systems 2 Narrative: Constitutional: denies rigors, positive weight gain, increased appetite HEENT: denies chronic cough, blurry vision, excessive tearing, eye pain, flashing lights, odynophagia, painful mastication, change in voice, change in taste, chronic sore throat, hypersalivation Heart: denies racing heart, palpitations, othropnea, PND Lungs: denies hemoptysis, pain with deep inspiration, chronic bronchitis GI: denies hematemesis, hematochezia, dysphagia, tenesmus : denies polyuria, hematuria, painful micturation Musculoskeletal: denies hemarthrosis, Muscle wasting, change in amubation Neuro: denies new onset syncope, dysesthesia, dysequilibrium, ptosis eyelid or face SKin: denies new onset hyperalgia, new rash new cyanosis Endocrine: denies new polyuria, polydipsia, polyphagia, heat intolerance, excessive energy Hem/Onc: denies new petechiae, swollen glands, new excessive epstaxis Psych: denies racing thought Medications/Allergies Home Medications ?Medication ?Instructions ?Recorded ?Confirmed ?Last Taken ?Type escitalopram oxalate 10 mg tablet 10 mg PO DAILY 90 da ys #90 tabs 03/11/25 08/10/25 08/09/25 Rx levothyroxine 25 mcg tablet See Rx Instructions .Route 07/17/25 08/10/25 08/09/25 Rx .COMPLEX #120 tabs enalapril 10 1 tab PO DAILY 08/10/25 1003/0108/09/25 History mg-hydrochlorothiazide 25 mg tablet Allergies Allergy/AdvReac Type Severity Reaction Status Date / Time Sulfa (Sulfonamide Allergy Intermediate sick rash Verified 03/19/25 16:30 Antibiotics) codeine Allergy made her Verified 03/19/25 16:30 feel off Penicillins Allergy Unknown Verified 03/20/25 09:29 Current Medications Generic Name Dose Route Start Last Admin Trade Name Freq PRN Reason Stop Dose Admin Ciprofloxacin/Dextrose 400 mg in 200 mls @ 200 mls/hr 08/10/25 16:19 08/10/25 16:33 Cipro IV 08/10/25 17:18 200 mls/hr ONCE ONE Administration Protocol PFSH Acute 2 PFSH: Medical History (Updated 08/10/25 @ 17:06 by Eulogio Carr MD) Mammogram declined Hypothyroid Hypothyroid Encounter to establish care Vitamin D deficiency Medication management Hypertension screen Anxiety and depression History of cardiac murmur History of thyroid storm Essential hypertension December 2020 Prolapsed bladder H/O radioactive iodine thyroid ablation November and December 2020 Surgical History H/O wrist surgery S/P subtotal thyroidectomy 46 years ago [facility] S/P cholecystectomy History of ankle surgery History of hysterectomy History of appendectomy Family History Other Hypertension Social History Smoking and tobacco/nicotine status: unknown if used tobacco/nicotine Vitals/I&O/Wt Last Vital Signs Pulse 93 08/10/25 13:25 Resp 18 08/10/25 13:25 BP 147/85 08/10/25 16:36 Pulse Ox 96 08/10/25 16:36 O2 Del Method Room Air 08/10/25 16:36 Weight last 48 hrs Weight 171 lb Physical Exam 2 Narrative: Patient is a well developed well nourished and in NAD and is afebrile with vitals stable and is answering questions appropriately with a normal affect and is alert and oriented x3 HEENT: normocephalic with normal external ears and nonicteric, oral mucosa moist and dentition normal for age, trachea midline with no large masses visualized Heart: RRR, no gallops murmurs or rubs, normal PMI with no thrills Lungs: normal excursions, no loud audible wheezing, no subcutaneous emphysema Abdomen: distended, no gross hepatosplenomegaly, no masses, no rigidity or rebound, no loud borborygmi, Neuro: nonfocal, MONTIEL, grossly normal sensation Musculoskeletal: good muscle tone, no fasciculations, normal gait Skin: pink warm and dry with no rashes or ecchymosis Vascular: good radial pulses, no ulceration, less than 2 second capillary refill in hand : deferred Data 08/10/25 13:48 08/10/25 13:48 A&P Assessment and plan 1. Pneumatosis coli: Needs to be cleaned out from above and below and may need colonoscopic decompression. She would benefit from NG tube decompression and to give medication to clean her out including mineral oil and simethicone from above. She will need mineral oil retention enema. Will get daily AXR to look for free air and may do colonoscopic decompression tomorrow especially if AXR looks worse. She may need more thyroid medication and hospitalist involvement would be appreciated. Optimize electrolytes to get better motility. PDMP PDMP Reviewed: Not Reviewed Coding Level of Care Code 49828 Diagnoses Pneumatosis coli K63.89
[2025-08-10 17:15] LABS: Thyroid Stimulating Hormone 3.53 uIU/mL (0.27-4.20)
--- NOTE | 2025-08-10 17:17 | XRR_ITS ---
PROCEDURE INFORMATION: Exam: XR Chest Exam date and time: 08/10/2025 7:23 PM Age: 79 years old Clinical indication: Device placement; Ng tube; Additional info: Check ng tube placement after ng is inserted TECHNIQUE: Imaging protocol: Radiologic exam of the chest. Views: 1 view. COMPARISON: CT abdomen pelvis con [id number] 08/10/2025 2:27 PM FINDINGS: Tubes, catheters and devices: There is an NG tube with the tip projecting in the proximal-mid gastric body region. The side hole is noted at about 3.3 cm below the diaphragm. A hiatal hernia was noted on recent CT exam. Nonspecific bowel gas pattern with mild air-filled distension of bowel loops. Recent CT also demonstrated colonic pneumatosis. Lungs: No consolidation. Pleural spaces: No pleural effusion. No pneumothorax. Heart/Mediastinum: Cardiac silhouette normal in size. Bones/joints: No acute findings. Intraperitoneal space: Single AP supine view was submitted. The left lateral inferior aspects of abdomen are excluded. The upper thorax is excluded. Organs: Cholecystectomy clips. XR/XR chest 1V portable [id number] IMPRESSION: NG tube position as above.
--- NOTE | 2025-08-10 18:20 | P.HP_ITS ---
Providers/Chief Complaint 2 Admitting Physician: Logan Abreu MD Primary Care Provider: LUPE Rodriguez Chief Complaint: constipation, vomiting History of Present Illness Terrie Hamilton is a 79 year old female with a past medical history of hypertension, hypothyroidism, [facility] to weakness, fatigue, constipation. Patient reports that she normally has a bowel movement every 3 days, she passes gas, she tells me that she has not had a bowel movement in over a week, she has tried laxatives, stool softeners with only a small bowel movement in the last week, feels nauseous, no vomiting, no lightheaded, dizziness, she does report feeling fatigue, malaise, no fevers, no chills, no cough, no abdominal pain, no new rashes, no chest pain, palpitations discussed CT scan findings, denies any abdominal pain, no prior history, of pneumatosis coli, she status post cholecystectomy, appendectomy, no bloody black stools Medications/Allergies Home Medications ?Medication ?Instructions ?Recorded ?Confirmed ?Last Taken ?Type escitalopram oxalate 10 mg tablet 10 mg PO DAILY 90 da ys #90 tabs 03/11/25 08/10/25 08/09/25 Rx levothyroxine 25 mcg tablet See Rx Instructions .Route 07/17/25 08/10/25 08/09/25 Rx .COMPLEX #120 tabs enalapril 10 1 tab PO DAILY 08/10/25 1003/0108/09/25 History mg-hydrochlorothiazide 25 mg tablet Allergies Allergy/AdvReac Type Severity Reaction Status Date / Time Sulfa (Sulfonamide Allergy Intermediate sick rash Verified 03/19/25 16:30 Antibiotics) codeine Allergy made her Verified 03/19/25 16:30 feel off Penicillins Allergy Unknown Verified 03/20/25 09:29 PFSH Acute 2 PFSH: Medical History Mammogram declined Hypothyroid Hypothyroid Encounter to establish care Vitamin D deficiency Medication management Hypertension screen Anxiety and depression History of cardiac murmur History of thyroid storm Essential hypertension December 2020 Prolapsed bladder H/O radioactive iodine thyroid ablation November and December 2020 Surgical History H/O wrist surgery S/P subtotal thyroidectomy 46 years ago - [place] S/P cholecystectomy History of ankle surgery History of hysterectomy History of appendectomy Family History Other Hypertension Social History Smoking and tobacco/nicotine status: unknown if used tobacco/nicotine Vitals/I&O/Wt Last Vital Signs Pulse 85 08/10/25 17:22 Resp 16 08/10/25 17:22 BP 131/86 08/10/25 17:22 Pulse Ox 98 08/10/25 17:22 O2 Del Method Room Air 08/10/25 17:22 Weight last 48 hrs Weight 77.564 kg Physical Exam 2 Const: COMMON NORMALS: no acute distress and patient oriented x3 HENMT: COMMON NORMALS: normocephalic HEAD & SCALP: normocephalic Resp: COMMON NORMALS: normal respiratory effort, No retractions, No use of accessory muscles and clear to auscultation bilaterally AUSCULTATION: clear to auscultation bilaterally Cardio: COMMON NORMALS: regular rate, regular rhythm, S1 normal heart sound present and S2 normal heart sound present RATE: regular rate RHYTHM: r egular rhythm HEART SOUNDS: S1 normal heart sound present and S2 normal heart sound present GI: COMMON NORMALS: Normal to inspection, nondistended, normoactive bowel sounds present, Soft to palpation and non-tender Extremity: COMMON NORMALS: no calf tenderness and no pedal edema Neuro: COMMON NORMALS: patient oriented x3, CN's II-XII intact bilaterally and moves all extremities Psych: COMMON NORMALS: mental status grossly normal Data 08/10/25 13:48 08/10/25 13:48 A&P Assessment and plan 1. Pneumatosis coli: 2. Constipation: 3. Hypothyroid: 4. Dehydration: 5. UTI (urinary tract infection): 6. SANDRA (acute kidney injury): Plan: Urinary tract infection, continue ciprofloxacin Acute kidney injury, IV fluids Hypothyroidism, continue levothyroxine, check T3, T4 Pulmonary nodules, follow-up with primary care Constipation, with pneumatosis and intestinalis CT scan abdomen pelvis 4. 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 Differential considerations include bowel necrosis, post endoscopy, medication induced and other. No portal venous gas. No free air. Moderate air distension of the transverse colon. Moderate stool load in the descending and sigmoid colon. 5. Small amount of free fluid. - Lactic acid within normal limits - Abdomen soft, nondistended, nontender, no guarding, no rebound, no rigidity - Has not had a bowel movement in over a week Plan - Serial abdominal exams - N.p.o. - IV fluids General Surgery consulted Full code Lovenox for DVT prophylaxis PDMP PDMP Reviewed: Not Reviewed Attestations 2 Medical Necessity Statement*: Patient requires hospitalization, outpatient observation, for UTI, SANDRA, pneumatosis coli, constipation Diagnoses Pneumatosis coli K63.89 Constipation K59.00 Hypothyroid E03.9 Dehydration E86.0 UTI (urinary tract infection) N39.0 SANDRA (acute kidney injury) N17.9
[2025-08-10 20:29] LABS: Free T4 Free Thyroxine 0.93 ng/dL (0.82-1.77); Thyroid Stimulating Hormone 3.50 uIU/mL (0.27-4.20)
[2025-08-10] MEDS: pantoprazole 40 mg SDV IVP (21:39)
[2025-08-10] MEDS: metroNIDAZOLE IV 500 MG/100 ML PREMIX 100 MG IV (21:39)
[2025-08-11 04:00] VITALS: BP 110/67; PULSE 76; RESP 16; TEMP 36.6; O2SAT 95
[2025-08-11] MEDS: pantoprazole 40 mg SDV IVP ×2 (05:59→16:29)
--- NOTE | 2025-08-11 07:16 | XRR_ITS ---
PROCEDURE INFORMATION: Exam: XR Abdomen Exam date and time: 08/11/2025 7:34 AM Age: 79 years old Clinical indication: Abdominal pain; Additional info: Ileus follow up TECHNIQUE: Imaging protocol: Radiologic exam of the abdomen. Views: Frontal supine view of the abdomen. 1 View. COMPARISON: CT abdomen pelvis con [id number] 08/10/2025 2:27 PM FINDINGS: Tubes, catheters and devices: Orogastric cannula is present with the tip in the left upper quadrant. The proximal port is at about the level of the EG junction. Ideally it should be advanced a few cm into the stomach. Gastrointestinal tract: Dilated loops of large and small bowel are present. Pneumatosis is identified along the hepatic flexure similar to the prior CT. No abnormal calcifications identified. Bones/joints: Unremarkable. XR/XR abdomen 1V* [id number] IMPRESSION: 1. Orogastric cannula should be advanced roughly 5 cm cm into the stomach. 2. Dilated colon and small bowel unchanged from prior CT consistent with ileus.
[2025-08-11 08:27] VITALS: BP 118/79; PULSE 84; RESP 17; TEMP 36.7; O2SAT 97
[2025-08-11 08:46] LABS: Hematocrit 36.8 % (36-47); Hemoglobin 11.70 g/dL (11.27-16.99); Mean Corpuscular HGB Conc 31.8 g/dL (30-55); Mean Corpuscular Hemoglobin 25.4 pg (27-33); Mean Corpuscular Volume 80.0 fl (85-98); Nucleated Red Blood Cells % 0 %; Platelet Count 375 10^3/cmm (157-399); Red Blood Count 4.60 10^6/uL (3.85-5.65); White Blood Count 8.68 10^3/uL (3.29-11.43)
[2025-08-11 09:06] LABS: Alanine Aminotransferase 6 U/L (0-33); Albumin Level 3.3 g/dL (3.5-5.2); Alkaline Phosphatase 101 U/L (35-105); Anion Gap 19.3 (5-19); Aspartate Amino Transferase 13 U/L (0-32); Blood Urea Nitrogen 54 mg/dL (8-23); Calcium 8.3 mg/dL (8.5-10.5); Carbon Dioxide 19 mmol/L (22-29); Chloride 99 mmol/L (98-107); Creatinine Clr Calc Pharmacy 24.5082; Globulin 3.4 g/dL (1.3-4.6); Glucose 107 mg/dL (65-115); Osmolality Calculated 293 mOsm/kg (285-295); Potassium 3.3 mmol/L (3.5-5.1); Sodium 134 mmol/L (136-145); Total Protein 6.7 g/dL (6.6-8.7)
--- OUTSIDE RECORDS SUMMARY | 2025-08-11 10:24 | XMS_ITS | Clinical Summary ---
Author Organization [email or web address] [facility] Address [address] [facility] Attn: Epic Prelude ADT MELANIE GOMEZ [id number] Care Team Providers Care Zipper Repairer Name Role Phone Unavailable Primary Care Provider [...] 08/08/2025 5:38 PM CDT Emergency [facility] Emergency [facility] [address] [facility] [address] [place] [phone] Bal Moreno MD Discharge Disposition: Left without being seen 08/08/2025 Results Follow-Up [facility] Emergency Medicine [address] [place] [id number] Rich Jacobs MD URINE CULTURE 08/06/2025 4:50 PM CDT - 08/06/2025 6:19 PM CDT Emergency [facility] Emergency Medicine [address] [place] [phone] Rich Jacobs MD Chronic idiopathic constipation (Primary [...] worry about transportation for future doctor visits, sweet pickled fruit maker medication, etc.? 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 Gender Identity Not on file Sexual Orientation [...] - 2 /hpf 08/06/2025 5:49 PM CDT [facility] RBC UA 0-2 0 - 2 /hpf 08/06/2025 5:49 PM CDT [facility] BACTERIA UA 1+(A) Negative /hpf 08/06/2025 5:49 PM CDT [facility] EPITHELIAL CELLS, URINE 0-5 0 - 5 /hpf 08/06/2025 5:49 PM CDT [facility] Urine URINE SPECIMEN OBTAINED BY CLEAN CATCH PROCEDURE / Unknown Collection / Unknown 08/06/2025 5:12 PM CDT 08/06/2025 5:41 PM CDT us Rich Jacobs MD URINE ORDERABLES Final Result [facility] CLIA # [id number] [address] [place] [address] * (ABNORMAL) URINALYSIS WITH REFLEX MICROSCOPIC (08/06/2025 5:12 PM CDT) COLOR UA Yellow Pale to Dark Yellow 08/06/2025 5:49 PM CDT [facility] CLARITY UA Clear Clear 08/06/2025 5:49 PM CDT [facility] SPECIFIC GRAVITY UA 1.015 1.003 - 1.035 08/06/2025 5:49 PM CDT [facility] PH UA 5.5 5.0 - 8.0 08/06/2025 5:49 PM CDT [facility] LEUKOCYTE ESTERASE UA 1+(A) Negative 08/06/2025 5:49 PM CDT [facility] NITRITE UA Negative Negative 08/06/2025 5:49 PM CDT [facility] PROTEIN UA Negative Negative 08/06/2025 5:49 PM CDT [facility] GLUCOSE UA Negative Negative 08/06/2025 5:49 PM CDT [facility] KETONES UA Negative Negative 08/06/2025 5:49 PM CDT [facility] UROBILINOGEN UA 0.2 <2.0 mg/dL 5:49 PM CDT [facility] BILIRUBIN UA Negative Negative 08/06/2025 5:49 PM CDT [facility] BLOOD UA 1+(A) Negative 08/06/2025 5:49 PM CDT [facility] Urine URINE SPECIMEN OBTAINED BY CLEAN CATCH PROCEDURE / Unknown Collection / Unknown 08/06/2025 5:12 PM CDT 08/06/2025 5:41 PM CDT Rich Jacobs MD URINE ORDERABLES Final Result [facility] CLIA # [id number] [address] [place] [id number] * URINE CULTURE (08/06/2025 5:12 PM CDT) CULTURE Polymicrobial growth consistent with normal urethral jean marie and/or colonizing bacteria 08/08/2025 12:14 PM CDT [facility] Urine URINE SPECIMEN OBTAINED BY CLEAN CATCH PROCEDURE / Unknown Collection / Unknown 08/06/2025 5:12 PM CDT 08/06/2025 6:02 PM CDT Rich Jacobs MD MICROBIOLOGY - GENERAL ORDERABL ES Final Result [facility] CLIA # [id number] [address] [place] [id number] from Last 3 Months Insurance MEDICAID [place]ARE PART A AND B
--- OUTSIDE RECORDS SUMMARY | 2025-08-11 10:24 | XMS_ITS | Encounter Summary ---
Author Organization [facility] Address [address] [place] [address] Care Team Providers Care Recruiter Specialist Name Role Phone Unavailable Primary Care Provider Unavailabl e Encounter Details Date Type Department Care Team (Late st Contact Info) Description 08/08/2025 Results Follow-Up [facility] Emergency Medicine [address] [facility] [address] [place] [address] Rich Jacobs MD [address] [facility] [address] [place] [address] URINE CULTURE Social History Tobacco [...] worry about transportation for future doctor visits, grape picker medication, etc.? 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
--- OUTSIDE RECORDS SUMMARY | 2025-08-11 10:24 | XMS_ITS | Encounter Summary ---
Author Organization [employer] Address [address] [facility] Attn: Epic Prelude ADT MELANIE GOMEZ [phone] Care Team Providers Care Auto Body Mechanic Apprentice Name Role Phone Unavailable Primary Care Provider [...] worry about transportation for future doctor visits, warehouse picker medication, etc.? 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
--- OUTSIDE RECORDS SUMMARY | 2025-08-11 10:24 | XMS_ITS | Patient Health Record ---
Author Organization [facility] Address [address] [place] [address] Care Team Providers Care Ambulance Mechanic Name Role Phone DR. Dereck Sprague Primary Care Provider [phone] Allergies Allergen (clinical drug ingredient) Drug/Non Drug [...] Date Medicare [address] [place] [address] Caro Hamiltonita Self - patient is the insured Medicaid [address] [place] [address] [phone] [id number] Alfonso Terrie Self - patient is the insured Medicaid Dental [address] [place] [address] [phone] [id number] Alfonso Terrie Self - patient is the insured [employer] [address] [place] [address] Caro Hamiltonita Self - patient is the insured Medical (General) History Medical History History ICD Code heart murmur Thyroid disease HIGH BLOOD PRESSURE
--- NOTE | 2025-08-11 10:58 | P.PN_ITS ---
Subjective 2 Subjective: Patient was seen this morning, alert oriented x 3, following all commands, is passing gas, has not had a bowel movement, abdominal distention improving, no lightheadedness, dizziness Vitals/I&O/Wt Last Vital Signs Temp 98.1 F 08/11/25 08:27 Pulse 84 08/11/25 08:27 Resp 17 08/11/25 08:27 BP 118/79 08/11/25 08:27 Pulse Ox 97 08/11/25 08:27 O2 Del Method Room Air 08/11/25 04:00 08/10/25 08/11/25 08/11/25 22:59 06:59 14:59 Intake Total 300 / 300 873.75 / 873.75 Output Total 50 / 50 Balance 300 / 300 -50 / 250 873.75 / 873.75 Weight last 48 hrs Weight 79.605 kg Weight 78.925 kg Weight 77.564 kg Physical Exam 2 Const: COMMON NORMALS: no acute distress and patient oriented x3 Eye: COMMON NORMALS: Equal, round and reactive pupils present PUPIL: Yes Equal, round and reactive pupils present Resp: COMMON NORMALS: normal respiratory effort, No retractions, No use of accessory muscles and clear to auscultation bilaterally AUSCULTATION: clear to auscultation bilaterally Cardio: COMMON NORMALS: regular rate, regular rhythm, S1 normal heart sound present and S2 normal heart sound present RATE: regular rate RHYTHM: r egular rhythm HEART SOUNDS: S1 normal heart sound present and S2 normal heart sound present GI: OTHER: Abdomen soft, distended, nontender, good bowel sounds, no guarding, no rebound, no rigidity Extremity: COMMON NORMALS: no pedal edema Neuro: COMMON NORMALS: patient oriented x3 and CN's II-XII intact bilaterally Psych: COMMON NORMALS: mental status grossly normal Data 08/11/25 08:38 08/11/25 08:38 A&P Assessment and plan 1. Pneumatosis coli: 2. Constipation: 3. Hypothyroid: 4. Dehydration: 5. UTI (urinary tract infection): 6. SANDRA (acute kidney injury): Plan: Urinary tract infection, continue ciprofloxacin Acute kidney injury, IV fluids Hypothyroidism, continue levothyroxine, Pulmonary nodules, follow-up with primary care Constipation, with pneumatosis and intestinalis CT scan abdomen pelvis 4. 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 Differential considerations include bowel necrosis, post endoscopy, medication induced and other. No portal venous gas. No free air. Moderate air distension of the transverse colon. Moderate stool load in the descending and sigmoid colon. 5. Small amount of free fluid. - Lactic acid within normal limits - Abdomen soft, nondistended, nontender, no guarding, no rebound, no rigidity - Has not had a bowel movement in over a week -Passing gas, no bowel movement Plan - Serial abdominal exams - N.p.o. - IV fluids General Surgery consulted Hypokalemia, will replace IV Full code Lovenox for DVT prophylaxis PDMP PDMP Reviewed: Not Reviewed Attestations 2 Medical Necessity Statement*: Patient requires hospitalization for UTI, SANDRA, constipation Diagnoses Pneumatosis coli K63.89 Constipation K59.00 Hypothyroid E03.9 Dehydration E86.0 UTI (urinary tract infection) N39.0 SANDRA (acute kidney injury) N17.9
[2025-08-11] MEDS: lidocaine 1% 5 ML in potassium chloride premix 100 ML 52.5 ML IV (11:21)
[2025-08-11 12:27] VITALS: BP 112/72; PULSE 78; RESP 18; TEMP 36.6; O2SAT 95
--- NOTE | 2025-08-11 15:51 | XRR_ITS ---
PROCEDURE INFORMATION: Exam: XR Chest Exam date and time: 08/11/2025 3:58 PM Age: 79 years old Clinical indication: Device placement; Ng tube; Additional info: Confirm ng tube placement. Advanced additional 5cm. TECHNIQUE: Imaging protocol: Radiologic exam of the chest. Views: 1 view. COMPARISON: CR XR chest 1V portable [id number] 08/10/2025 7:23 PM FINDINGS: Tubes, catheters and devices: Orogastric cannula is present with the tip in the stomach. Surgical clips are present in the right upper quadrant likely status post cholecystectomy. Lungs: Lungs are clear otherwise. Pleural spaces: Opacity at the left lung base may be left pleural effusion. Heart/Mediastinum: Heart size is in the upper limits of normal. Bones/joints: Unremarkable. XR/XR chest 1V portable [id number] IMPRESSION: Orogastric cannula is in good position. Possible left pleural effusion versus atelectasis.
[2025-08-11 16:21] VITALS: BP 136/81; PULSE 80; RESP 17; TEMP 36.7; O2SAT 95
--- NOTE | 2025-08-11 18:07 | P.PN_ITS ---
Subjective 2 Subjective: She fees better with less crampy pain and distention Vitals/I&O/Wt Last Vital Signs Temp 98.0 F 08/11/25 16:21 Pulse 80 08/11/25 16:21 Resp 17 08/11/25 16:21 BP 136/81 08/11/25 16:21 Pulse Ox 95 08/11/25 16:21 O2 Del Method Room Air 08/11/25 04:00 08/11/25 08/11/25 08/11/25 06:59 14:59 22:59 Intake Total 1037.50 / 1037.50 200 / 1237.50 Output Total 50 / 50 200 / 200 Balance -50 / 250 1037.50 / 1037.50 0 / 1037.50 Weight last 48 hrs Weight 175 lb 8 oz Weight 174 lb Weight 171 lb Physical Exam 2 Narrative: Patient is a well developed well nourished and in NAD and is afebrile with vitals stable and is answering questions appropriately with a normal affect and is alert and oriented x3 HEENT: normocephalic with normal external ears and nonicteric, oral mucosa moist and dentition normal for age, trachea midline with no large masses visualized Heart: RRR, no gallops murmurs or rubs, normal PMI with no thrills Lungs: normal excursions, no loud audible wheezing, no subcutaneous emphysema Abdomen: nondistended, no gross hepatosplenomegaly, no masses, no rigidity or rebound, no loud borborygmi Neuro: nonfocal, MONTIEL, grossly normal sensation Musculoskeletal: good muscle tone, no fasciculations, normal gait Skin: pink warm and dry with no rashes or ecchymosis Vascular: good radial pulses, no ulceration, less than 2 second capillary refill in hand : deferred Data 08/11/25 08:38 08/11/25 08:38 A&P Assessment and plan 1. Constipation: Keep NPO with NG down. Symptomatically better and less distended. WBC normal. Continue to clean out from above and below since she has improved with these conservative methods so far. Consider PICC and TPN this Tuesday. Last ate tacos about tuesday last week. 2. Abdominal pain: 3. Pneumatosis coli: PDMP PDMP Reviewed: Not Reviewed Attestations 2 Medical Necessity Statement*: She has bowel obstrustion/ileus and needs NG Coding Level of Care Code 99473 Diagnoses Constipation K59.00 Abdominal pain R10.9 Pneumatosis coli K63.89
[2025-08-11 19:17] VITALS: BP 123/74; PULSE 77; RESP 17; TEMP 36.9; O2SAT 95
[2025-08-11 23:03] VITALS: BP 142/68; PULSE 81; TEMP 36.7; O2SAT 94
[2025-08-12 04:00] VITALS: BP 137/81; PULSE 71; RESP 17; TEMP 36.6; O2SAT 97
[2025-08-12] MEDS: pantoprazole 40 mg SDV IVP ×2 (04:23→16:54)
[2025-08-12 05:20] LABS: Hematocrit 33.7 % (36-47); Hemoglobin 10.40 g/dL (11.27-16.99); Mean Corpuscular HGB Conc 30.9 g/dL (30-55); Mean Corpuscular Hemoglobin 25.2 pg (27-33); Mean Corpuscular Volume 81.8 fl (85-98); Nucleated Red Blood Cells % 0 %; Platelet Count 383 10^3/cmm (157-399); Red Blood Count 4.12 10^6/uL (3.85-5.65); White Blood Count 7.97 10^3/uL (3.29-11.43)
[2025-08-12 05:47] LABS: Alanine Aminotransferase < 5 U/L (0-33); Albumin Level 3.3 g/dL (3.5-5.2); Alkaline Phosphatase 85 U/L (35-105); Anion Gap 16.5 (5-19); Aspartate Amino Transferase 10 U/L (0-32); Blood Urea Nitrogen 42 mg/dL (8-23); Calcium 8.1 mg/dL (8.5-10.5); Carbon Dioxide 20 mmol/L (22-29); Chloride 103 mmol/L (98-107); Globulin 2.9 g/dL (1.3-4.6); Glucose 92 mg/dL (65-115); Magnesium 2.5 mg/dL (1.7-2.3); Osmolality Calculated 292 mOsm/kg (285-295); Potassium 3.5 mmol/L (3.5-5.1); Sodium 136 mmol/L (136-145); Total Protein 6.2 g/dL (6.6-8.7)
[2025-08-12 06:00] LABS: Creatinine Clr Calc Pharmacy 39.2836
--- NOTE | 2025-08-12 06:42 | P.PN_ITS ---
Subjective 2 Subjective: Feels better with no to little clinical pain Vitals/I&O/Wt Last Vital Signs Temp 97.8 F 08/12/25 04:00 Pulse 71 08/12/25 04:00 Resp 17 08/12/25 04:00 BP 137/81 08/12/25 04:00 Pulse Ox 97 08/12/25 04:00 O2 Del Method Room Air 08/12/25 04:00 08/11/25 08/11/25 08/12/25 14:59 22:59 06:59 Intake Total 1037.50 / 1037.50 200 / 1237.50 1000 / 2237.50 Output Total 200 / 200 150 / 350 Balance 1037.50 / 1037.50 0 / 1037.50 850 / 1887.50 Weight last 48 hrs Weight 179 lb 14.355 oz Weight 175 lb 8 oz Weight 174 lb Weight 171 lb Physical Exam 2 Narrative: Patient is a well developed well nourished and in NAD and is afebrile with vitals stable and is answering questions appropriately with a normal affect and is alert and oriented x3 HEENT: normocephalic with normal external ears and nonicteric, oral mucosa moist and dentition normal for age, trachea midline with no large masses visualized Heart: RRR, no gallops murmurs or rubs, normal PMI with no thrills Lungs: normal excursions, no loud audible wheezing, no subcutaneous emphysema Abdomen: nondistended, no gross hepatosplenomegaly, no masses, no rigidity or rebound, no loud borborygmi Neuro: nonfocal, MONTIEL, grossly normal sensation Musculoskeletal: good muscle tone, no fasciculations, normal gait Skin: pink warm and dry with no rashes or ecchymosis Vascular: good radial pulses, no ulceration, less than 2 second capillary refill in hand : deferred Data 08/12/25 04:53 08/12/25 04:53 A&P Assessment and plan 1. Constipation: Keep NG down and keep on bowel rest. Consider PICC and TPN. Keep cleaning out from above and below. AXR pending. 2. Pneumatosis coli: 3. Abdominal pain: PDMP PDMP Reviewed: Not Reviewed Attestations 2 Medical Necessity Statement*: Patient still has NG tube and has not eaten po as of yet Coding Level of Care Code Acute Code for Chg Fwd Diagnoses Constipation K59.00 Pneumatosis coli K63.89 Abdominal pain R10.9
[2025-08-12 07:27] VITALS: BP 102/67; PULSE 75; RESP 16; TEMP 36.8; O2SAT 97
[2025-08-12] MEDS: polyethylene glycol 3350 Pkt 17 gm NG-TUBE (07:59)
[2025-08-12 08:00] VITALS: BP 102/67; PULSE 75; RESP 16; TEMP 36.8
--- NOTE | 2025-08-12 10:00 | XR_ITS ---
WS: [id number] KUB, AP view, 08/12/2025 Clinical Data: severe constipation/ileus Comparison: KUB, 08/11/2025 Findings: No abnormal intraabdominal masses or calcifications are seen. The oral gastric tube has been advanced further into the body of the stomach. The dilated small bowel loops and colon are unchanged. There are cholecystectomy clips in the right upper quadrant. XR/XR abdomen 1V* [id number] Impression: No change in severe generalized ileus.
--- NOTE | 2025-08-12 11:01 | XR_ITS ---
WS: [email or web address] Portable AP upright chest, 08/12/2025 Clinical Data: Post PICC insertion Comparison: Portable chest, 08/11/2025 Findings: The right PICC line ends in the distal SVC. No pneumothorax is seen. The remainder of the chest shows no change. XR/XR chest 1V portable [id number] Impression: Satisfactory insertion of right PICC line.
--- NOTE | 2025-08-12 11:10 | PICC.NOTE ---
Double lumen PICC placed to right basilic vein. Referred to vascular access nurse for PICC placement due to need for TPN. Risks and benefits discussed and informed consent obtained from pt. Right arm assessed with right basilic vein measuring 3.6 mm, straight, and apparent best choice for placement. Using sterile technique and MST, right basilic vein accessed x 1 stick. Mid-arm circumference measured 10 cm from right AC 30 cm. Trimmed cath 39 cm with 0 cm external length noted. CXR shows tip in distal SVC, in good position for use per radiologist. Line secured with stat-lock. Insertion site covered with Biopatch and TSM. Report given to bedside nurse, ROSHAN Salmon.
[2025-08-12 12:00] VITALS: BP 107/71; PULSE 85; RESP 16; TEMP 36.6; O2SAT 95
[2025-08-12 16:00] VITALS: BP 145/72; PULSE 72; RESP 16; TEMP 36.8; O2SAT 97
--- NOTE | 2025-08-12 17:58 | P.PN_ITS ---
Subjective 2 Subjective: 79-year-old female accompanied by her daughter Kavya. Patient states her bowel movements were normal daily or every other day until a week ago. She started to have no bowel movements or just katharine and stools were hard. She has never had a colonoscopy. She states her stools became narrowed just this week and were normal previously. She denies nausea but did have abdominal pain. She was seen in the emergency department with report of 2/10 pain, vomiting constipation with normal lactic acid, white count and no fever but CT scan showing air in the bowel wall consistent with pneumatosis coli as read by the radiologist. She was referred to hospitalist and general surgeon for NG tube and enemas as recommended by Dr. Hope. Vitals/I&O/Wt Last Vital Signs Temp 98.2 F 08/12/25 16:00 Pulse 72 08/12/25 16:00 Resp 16 08/12/25 16:00 BP 145/72 08/12/25 16:00 Pulse Ox 97 08/12/25 16:00 O2 Del Method Room Air 08/12/25 16:00 08/12/25 08/12/25 08/12/25 06:59 14:59 22:59 Intake Total 1000 / 2237.50 Output Total 150 / 350 Balance 850 / 1887.50 Weight last 48 hrs Weight 81.6 kg Weight 79.605 kg Weight 78.925 kg Physical Exam 2 Narrative: General well-developed well-nourished overweight female in no acute cardiopulmonary stress CV regular rate and rhythm Lungs clear to auscultation bilaterally Abdomen diminished bowel tones distended but not hard no rebound tenderness no tenderness really at all Calves no tenderness or pretibial edema or asymmetry Data 08/12/25 04:53 08/12/25 04:53 A&P Assessment and plan 1. Pneumatosis coli: Patient's abdominal exam is benign despite the CT findings 2. Constipation: Increase enemas 3. Hypothyroid: TSH 3.5 free T4 0.93 Free T3 1.3 4. Dehydration: Continue with potassium cleaning for fluids 5. UTI (urinary tract infection): Contaminated urine 6. SANDRA (acute kidney injury): Improved continue IV fluids Plan: Full code Lovenox for DVT prophylaxis PDMP PDMP Reviewed: Not Reviewed Attestations 2 Medical Necessity Statement*: Patient andrés in hospital for IV fluids and NG tube decompression her abdomen plus fleets enemas and will require greater than 2 midnights Coding Level of Care Code Acute Code for Chg Fwd Diagnoses Pneumatosis coli K63.89 Constipation K59.00 Hypothyroid E03.9 Dehydration E86.0 UTI (urinary tract infection) N39.0 SANDRA (acute kidney injury) N17.9
[2025-08-12] MEDS: Fleet Enema 133 mL Enema PR (18:34)
[2025-08-12] MEDS: dextrose 5%-lr + KCl 20 1,000 ML 125 MEQ IV (18:35)
[2025-08-12 21:00] VITALS: BP 118/62; PULSE 67; RESP 16; TEMP 36.3; O2SAT 96
[2025-08-13] VITALS: BP 122/70; PULSE 66; RESP 16; TEMP 36.7; O2SAT 94
--- NOTE | 2025-08-13 02:31 | PC.NURSE ---
Dr. Chávez notified due to Dextrose 5%-lr + KCl 20 being out all throughout the hospital. Dr. Chávez verbalized to give 0.9% NS @100 mL/hr instead. Physician notification put in per EMR.
[2025-08-13 04:00] VITALS: BP 120/73; PULSE 68; RESP 14; TEMP 36.7; O2SAT 95
[2025-08-13] MEDS: Fleet Enema 133 mL Enema PR (05:42)
[2025-08-13 05:51] LABS: Hematocrit 32.0 % (36-47); Hemoglobin 10.20 g/dL (11.27-16.99); Mean Corpuscular HGB Conc 31.9 g/dL (30-55); Mean Corpuscular Hemoglobin 26.0 pg (27-33); Mean Corpuscular Volume 81.4 fl (85-98); Nucleated Red Blood Cells % 0 %; Platelet Count 358 10^3/cmm (157-399); Red Blood Count 3.93 10^6/uL (3.85-5.65); White Blood Count 7.90 10^3/uL (3.29-11.43)
[2025-08-13] MEDS: pantoprazole 40 mg SDV IVP ×2 (05:55→17:41)
[2025-08-13 06:09] LABS: Alanine Aminotransferase < 5 U/L (0-33); Albumin Level 3.2 g/dL (3.5-5.2); Alkaline Phosphatase 84 U/L (35-105); Aspartate Amino Transferase 14 U/L (0-32); Blood Urea Nitrogen 28 mg/dL (8-23); Calcium 8.5 mg/dL (8.5-10.5); Carbon Dioxide 21 mmol/L (22-29); Chloride 105 mmol/L (98-107); Creatinine Clr Calc Pharmacy 36.7244; Globulin 2.9 g/dL (1.3-4.6); Glucose 91 mg/dL (65-115); Magnesium 2.4 mg/dL (1.7-2.3); Osmolality Calculated 291 mOsm/kg (285-295); Sodium 138 mmol/L (136-145); Total Protein 6.1 g/dL (6.6-8.7)
[2025-08-13 06:10] LABS: Anion Gap 16.2 (5-19); Potassium 4.2 mmol/L (3.5-5.1)
[2025-08-13] MEDS: LORazepam 1 MG/0.5 ML injection IVP (07:05)
--- NOTE | 2025-08-13 07:18 | PC.NURSE ---
Around 0650, Pt NG tube came out. Dr. Kellie Chávez notified of this. Pt was very anxious about needing a new one put in and said to give Ativan 1mg IVP. Pt agreeable at this time. NG placed to R nare 18 F. Pt tolerated well.
--- NOTE | 2025-08-13 07:29 | XR_ITS ---
WS: [email or web address] Portable AP semiupright chest, 08/13/2025 Clinical Data: NG placement Comparison: Portable chest, 08/12/2025 Findings: No nodules, masses or effusions are seen. The heart is normal. The pulmonary vascularity is not increased. No pneumonia or pneumothorax is seen. The nasogastric tube remains in the same position ending in the body of the stomach. The right PICC line has not changed. There are cholecystectomy clips in the right upper quadrant. XR/XR chest 1V portable [id number] Impression: No change in position of nasogastric tube or PICC line.
[2025-08-13 07:46] VITALS: BP 130/74; PULSE 66; RESP 16; TEMP 36.4; O2SAT 95
--- NOTE | 2025-08-13 10:00 | XR_ITS ---
WS: [email or web address] KUB, AP portable upright, 08/13/2025 Clinical Data: severe constipation/ileus Comparison: KUB, 08/12/2025 Findings: No abnormal intraabdominal masses or calcifications are seen. The dilated bowel again is seen throughout the abdomen. Both small and large bowel appear to be dilated. No free air is seen. There are cholecystectomy clips in the right upper quadrant. XR/XR abdomen 1V* [id number] Impression: Dilated small bowel and colon consistent with severe ileus.
--- NOTE | 2025-08-13 10:00 | PC.CHAP ---
Pastoral Care Encounter/Spiritual Assessment Type of Contact [] Declined software design engineer visit [] Patient/Family/Request visit [] Outpatient visit [] Follow-up visit [] Physician referral [] Code/Alert [] Routine visit [] Staff referral [] Actively dying [x] Patient sleeping [] Family support [] [] Out of room [] Palliative care [] [] Receiving care in room [] Pre-surgical visit [] Trauma [] Long length of stay [] ICU visit [] Other: Relational/Emotional Strength [] Patient feels connected with others/family/visitors/staff [] Distress [] Loneliness/isolation [] Abandonment Spirituality of Patient [] Person of Lauren [] Attends Denominational of their Lauren [] Believes in Prayer [] Reads Bible or Temple materials [] There are Spiritual issues to be addressed Prototyper Interventions [] Prayer [] Active listening [] Non-anxious presence [] Spiritual/emotional support [] Crisis/trauma care [] Spiritual counseling [] Bereavement support [] Provided bereavement packet [] Provided Bible/devotional materials [] Provided toy/stuffed animal, coloring book to patient or family member [] Provided Communion [] Anointing/[place] [] Salvation [] Completed spiritual assessment [] Other: Impact on Illness or Injury [] Angry [] Fearful [] Anxious [] Often cries [] Exhaustion [] Unable to work [] Unable to attend latter day [] Unable to walk/stand [] Unable to read [] Unable to drive [] Unable to eat/drink [] Unable to sleep [] Unable to be with family [] Patient intubated [] Other: Summary Time spent with patient
[2025-08-13 11:08] VITALS: BP 124/70; PULSE 69; RESP 15; TEMP 36.4; O2SAT 93
--- NOTE | 2025-08-13 11:21 | PC.NUTR ---
Verbal consult for TPN received. Recommend TPN 8%AA/ 10% dextrose administered in PICC line to begin at 22mls/hr and to increase 10mls Q4-8H until goal rate of 42mls/hr is reached with MV 10mls/day, and fat emulsion 20gm/100mls twice weekly or per MD discretion.
--- NOTE | 2025-08-13 12:49 | P.PN_ITS ---
Subjective 2 Subjective: NAEON No nausea/vomiting Abdomen benign No abdominal pain Passing gas Vitals/I&O/Wt Last Vital Signs Temp 97.6 F 08/13/25 11:08 Pulse 69 08/13/25 11:08 Resp 15 08/13/25 11:08 BP 124/70 08/13/25 11:08 Pulse Ox 93 08/13/25 11:08 O2 Del Method Room Air 08/13/25 11:08 08/12/25 08/13/25 08/13/25 22:59 06:59 14:59 Intake Total 1200 / 1200 1000 / 2200 0 / 0 Output Total 140 / 140 200 / 200 Balance 1060 / 1060 1000 / 2060 -200 / -200 Weight last 48 hrs Weight 179 lb 4 oz Weight 184 lb 8 oz Weight 179 lb 14.355 oz Physical Exam 2 Narrative: Chest: Unlabored breathing room air. No lymphadenopathy. Heart: Regular rate and rhythm. Abdomen: Soft, nontender, nondistended. No masses or lymphadenopathy. Data 08/14/25 04:19 08/14/25 04:19 A&P Assessment and plan 1. Pneumatosis coli: Plan: 9-year-old female admitted with an ileus and CT scan finding of pneumatosis coli. Abdomen has remained benign during her whole hospital stay. Okay to remove NG tube and start clears. Rest of care per hospitalist. PDMP PDMP Reviewed: Not Reviewed Attestations 2 Medical Necessity Statement*: N/A Coding Level of Care Code 45683 Diagnoses Pneumatosis coli K63.89
[2025-08-13 15:31] VITALS: BP 126/73; PULSE 71; RESP 17; TEMP 36.8; O2SAT 96
--- NOTE | 2025-08-13 17:03 | P.PN_ITS ---
Subjective 2 Subjective: 79-year-old female accompanied by her daughter Kavya. Patient states her bowel movements were normal daily or every other day until a week ago. She started to have no bowel movements or just katharine and stools were hard. She has never had a colonoscopy. She states her stools became narrowed just this week and were normal previously. She denies nausea but did have abdominal pain. NG tube output [address] Art has recommended removing the tube and advancing clear liquid diet Vitals/I&O/Wt Last Vital Signs Temp 98.3 F 08/13/25 15:31 Pulse 71 08/13/25 15:31 Resp 17 08/13/25 15:31 BP 126/73 08/13/25 15:31 Pulse Ox 96 08/13/25 15:31 O2 Del Method Room Air 08/13/25 15:31 08/13/25 08/13/25 08/13/25 06:59 14:59 22:59 Intake Total 1000 / 2200 1000 / 1000 Output Total 200 / 200 Balance 1000 / 2060 800 / 800 Weight last 48 hrs Weight 81.306 kg Weight 83.688 kg Weight 81.6 kg Physical Exam 2 Narrative: General well-developed well-nourished overweight female in no acute cardiopulmonary stress CV regular rate and rhythm with 3/6 systolic ejection murmur best heard at the left sternal border Lungs clear to auscultation bilaterally Abdomen diminished bowel tones distended but not hard no rebound tenderness no tenderness really at all Calves no tenderness or pretibial edema or asymmetry Data 08/13/25 05:25 08/13/25 05:25 A&P Assessment and plan 1. 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 Will not pursue etiology at this time and she does not require surgery as this does not appear acutely infectious or necrotic or ischemic. Advance diet to clears pull NG tube as discussed with Dr. Art 2. Constipation: Increase enemas start clear liquids. Start Reglan monitor for altered mental status 3. Hypothyroid: TSH 3.5 free T4 0.93 Free T3 1.3 4. Dehydration: Continue with potassium cleaning for fluids 5. SANDRA (acute kidney injury): Improved continue IV fluids Plan: Full code Lovenox for DVT prophylaxis PDMP PDMP Reviewed: Not Reviewed Attestations 2 Medical Necessity Statement*: Patient remains in the hospital for return of bowel function and is anticipated to require greater than 2 midnights in Coding Level of Care Code 42769 Diagnoses Pneumatosis coli K63.89 Constipation K59.00 Hypothyroid E03.9 Dehydration E86.0 SANDRA (acute kidney injury) N17.9 Time Spent (min) 35
[2025-08-13] MEDS: metoclopramide 5 mg/mL SDV 2 mL IVP ×2 (17:43→23:53)
--- NOTE | 2025-08-13 18:42 | PC.NURSE ---
Pt has visitors from out of town and requests that enema be given after they leave. Re-timed for 1999.
--- NOTE | 2025-08-13 19:46 | PC.NURSE ---
Pt refused scheduled fleet enema for tonight. Pt and daughter at bedside state pt had a small BM today and do not want the enema tonight but has agreed to get it in the morning when it is scheduled again per MAR. I reinforced the benefits of the enema to the pt and daughter and pt still agreed she did not want it. Dr. Chávez notified.
[2025-08-13 20:00] VITALS: BP 113/59; PULSE 68; RESP 15; TEMP 36.7; O2SAT 94
[2025-08-13] MEDS: AA-Dex 8%-10% w/ lytes 1,000 ML with multivitamin inj 10 ML 22 ML IV (21:01)
[2025-08-14] VITALS (9 sets, daily range): BP systolic 115–135; BP diastolic 55–81; PULSE 64–97; RESP 15–17; TEMP 36.4–36.7; O2SAT 94–98
[2025-08-14 04:41] LABS: Hematocrit 31.8 % (36-47); Hemoglobin 10.40 g/dL (11.27-16.99); Mean Corpuscular HGB Conc 32.7 g/dL (30-55); Mean Corpuscular Hemoglobin 26.3 pg (27-33); Mean Corpuscular Volume 80.3 fl (85-98); Nucleated Red Blood Cells % 0 %; Platelet Count 359 10^3/cmm (157-399); Red Blood Count 3.96 10^6/uL (3.85-5.65); White Blood Count 7.50 10^3/uL (3.29-11.43)
[2025-08-14 05:02] LABS: Magnesium 2.1 mg/dL (1.7-2.3)
[2025-08-14 05:08] LABS: Alanine Aminotransferase < 5 U/L (0-33); Albumin Level 3.0 g/dL (3.5-5.2); Alkaline Phosphatase 72 U/L (35-105); Anion Gap 14.7 (5-19); Aspartate Amino Transferase 13 U/L (0-32); Blood Urea Nitrogen 17 mg/dL (8-23); Calcium 8.0 mg/dL (8.5-10.5); Carbon Dioxide 21 mmol/L (22-29); Chloride 108 mmol/L (98-107); Creatinine Clr Calc Pharmacy 42.7778; Globulin 2.8 g/dL (1.3-4.6); Glucose 109 mg/dL (65-115); Osmolality Calculated 294 mOsm/kg (285-295); Sodium 141 mmol/L (136-145); Total Protein 5.8 g/dL (6.6-8.7)
[2025-08-14 05:28] LABS: Potassium 2.7 mmol/L (3.5-5.1)
[2025-08-14] MEDS: pantoprazole 40 mg SDV IVP ×2 (05:36→16:50)
[2025-08-14] MEDS: metoclopramide 5 mg/mL SDV 2 mL IVP ×2 (05:36→12:09)
[2025-08-14] MEDS: potassium chloride premix 100 ML 25 MEQ IV (06:41)
--- NOTE | 2025-08-14 07:24 | PC.NURSE ---
Levothyroxine orders per MAR for 50 mcg and 25 mcg got mixed up when giving this morning. Both were active, and look alike. I notified Dr. Krishnamurthy of this and put in an event report. Pt is okay and Dr. Krishnamurthy said it is okay and there is nothing more he needs me to do. Provider notification put in.
[2025-08-14] MEDS: Fleet Enema 133 mL Enema PR (08:19)
--- NOTE | 2025-08-14 09:22 | PC.CHAP ---
Pastoral Care Encounter/Spiritual Assessment Type of Contact [] Declined dado operator visit [] Patient/Family/Request visit [] Outpatient visit [] Follow-up visit [] Physician referral [] Code/Alert [] Routine visit [] Staff referral [] Actively dying [] Patient sleeping [] Family support [] [] Out of room [] Palliative care [] [x] Receiving care in room [] Pre-surgical visit [] Trauma [] Long length of stay [] ICU visit [] Other: Relational/Emotional Strength [] Patient feels connected with others/family/visitors/staff [] Distress [] Loneliness/isolation [] Abandonment Spirituality of Patient [] Person of Lauren [] Attends Protestant of their Lauren [] Believes in Prayer [] Reads Bible or Amish materials [] There are Spiritual issues to be addressed Track Sweeper Interventions [] Prayer [] Active listening [] Non-anxious presence [] Spiritual/emotional support [] Crisis/trauma care [] Spiritual counseling [] Bereavement support [] Provided bereavement packet [] Provided Bible/devotional materials [] Provided toy/stuffed animal, coloring book to patient or family member [] Provided Communion [] Anointing/[place] [] Salvation [] Completed spiritual assessment [] Other: Impact on Illness or Injury [] Angry [] Fearful [] Anxious [] Often cries [] Exhaustion [] Unable to work [] Unable to attend advent [] Unable to walk/stand [] Unable to read [] Unable to drive [] Unable to eat/drink [] Unable to sleep [] Unable to be with family [] Patient intubated [] Other: Summary Time spent with patient
--- NOTE | 2025-08-14 10:00 | XR_ITS ---
WS: [id number] KUB, AP supine, 08/14/2025 Clinical Data: severe constipation/ileus Comparison: None. Findings: No abnormal intraabdominal masses or calcifications are seen. The dilated bowel is again seen throughout the abdomen. Both small and large bowel appear to be dilated. This is most consistent with a severe ileus. Cholecystectomy clips are seen in the right upper quadrant.. XR/XR abdomen 1V* [id number] Impression: Dilated small bowel and colon consistent with severe generalized ileus.
--- NOTE | 2025-08-14 11:33 | PC.NUTR ---
Verbal consult for TPN received. Recommend TPN 8%AA/ 10% dextrose administered in PICC line to begin at 22mls/hr and to increase 10mls Q4-8H until goal rate of 42mls/hr is reached with MV 10mls/day, and fat emulsion 20gm/100mls twice weekly or per MD discretion, and standard electrolytes.
--- NOTE | 2025-08-14 12:50 | P.PN_ITS ---
Subjective 2 Subjective: Tolerating diet No abdominal pain Abdomen benign Having bowel function although daughter reports constipation Vitals/I&O/Wt Last Vital Signs Temp 97.9 F 08/14/25 11:16 Pulse 72 08/14/25 11:16 Resp 15 08/14/25 11:16 BP 131/63 08/14/25 11:16 Pulse Ox 96 08/14/25 11:16 O2 Del Method Room Air 08/14/25 11:16 08/13/25 08/14/25 08/14/25 22:59 06:59 14:59 Intake Total 440 / 1440 1136.033 / 2576.033 240 / 240 Balance 440 / 1240 1136.033 / 2376.033 240 / 240 Weight last 48 hrs Weight 188 lb Weight 179 lb 4 oz Weight 184 lb 8 oz Physical Exam 2 Narrative: Chest: Unlabored breathing room air. No lymphadenopathy. Heart: Regular rate and rhythm. Abdomen: Soft, nontender, nondistended. No masses or lymphadenopathy. Data 08/14/25 04:19 08/14/25 04:19 A&P Assessment and plan 1. Pneumatosis coli: Plan: 79-year-old female whom surgery was consulted for pneumatosis coli. Incidental finding. Abdomen has remained benign throughout her hospital stay. Now tolerating a diet. Rest of care per hospitalist. PDMP PDMP Reviewed: Not Reviewed Attestations 2 Medical Necessity Statement*: N/A Coding Level of Care Code 40744 Diagnoses Pneumatosis coli K63.89
--- NOTE | 2025-08-14 17:23 | P.PN_ITS ---
Subjective 2 Subjective: 79-year-old female with ileus and small bowel distention pneumatosis coli of the colon 08/10/2025. Patient with severe ileus since admission minimal flatus and stool. She is tolerating clear liquid diet without much appetite but also without pain. Abdominal exam and white count has remained benign. Vitals/I&O/Wt Last Vital Signs Temp 97.6 F 08/14/25 16:00 Pulse 97 08/14/25 16:00 Resp 16 08/14/25 16:00 BP 135/81 08/14/25 16:00 Pulse Ox 95 08/14/25 15:27 O2 Del Method Room Air 08/14/25 15:27 08/14/25 08/14/25 08/14/25 06:59 14:59 22:59 Intake Total 1136.033 / 2576.033 1360 / 1360 Balance 1136.033 / 2376.033 1360 / 1360 Weight last 48 hrs Weight 85.275 kg Weight 81.306 kg Weight 83.688 kg Physical Exam 2 Narrative: General well-developed well-nourished overweight female in no acute cardiopulmonary stress CV regular rate and rhythm with 3/6 systolic ejection murmur best heard at the left sternal border Lungs clear to auscultation bilaterally Abdomen distended and full but not hard or with rebound. Abdomen is tympanitic to percussion and bowel tones are present Calves no tenderness or pretibial edema or asymmetry I had the patient roll to prone position and either side. Data 08/14/25 04:19 08/14/25 04:19 A&P Assessment and plan 1. 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 Will not pursue etiology at this time and she does not require surgery as this does not appear acutely infectious or necrotic or ischemic. Advance diet to clears pull NG tube as discussed with Dr. Art 2. Paralytic ileus of small intestine and colon: Increase Reglan to 10 mg every 6 hours ambulate hourly and roll [id number] while prone in bed 3. Hypothyroid: TSH 3.5 free T4 0.93 Free T3 1.3 4. Dehydration: Continue with potassium containing fluids and oral replacement 5. SANDRA (acute kidney injury): Improved continue IV fluids Plan: Full code Lovenox for DVT prophylaxis PDMP PDMP Reviewed: Not Reviewed Attestations 2 Medical Necessity Statement*: Patient andrés in the hospital for IV fluids and monitoring for safe resolution of ileus and will require greater then 1-2 additional midnight Coding Level of Care Code Acute Code for Chg Fwd Diagnoses Pneumatosis coli K63.89 Paralytic ileus of small intestine and colon K56.0 Hypothyroid E03.9 Dehydration E86.0 SANDRA (acute kidney injury) N17.9
[2025-08-14] MEDS: metoclopramide 5 mg/mL SDV 2 mL 10 MG IVP (18:01)
[2025-08-14] MEDS: ondansetron 2 mg/ML SDV 2 mL 4 MG IVP (19:48)
[2025-08-14] MEDS: [UNRECOGNIZED DRUG - REMARK] IV (21:50)
[2025-08-15] VITALS: BP 107/65; PULSE 76; RESP 15; TEMP 36.5; O2SAT 94
[2025-08-15] MEDS: metoclopramide 5 mg/mL SDV 2 mL 10 MG IVP ×5 (00:10→23:13)
[2025-08-15 04:00] VITALS: BP 121/70; PULSE 80; RESP 15; TEMP 36.6; O2SAT 94
[2025-08-15 05:09] LABS: Hematocrit 30.9 % (36-47); Hemoglobin 9.80 g/dL (11.27-16.99); Mean Corpuscular HGB Conc 31.7 g/dL (30-55); Mean Corpuscular Hemoglobin 25.1 pg (27-33); Mean Corpuscular Volume 79.0 fl (85-98); Nucleated Red Blood Cells % 0 %; Platelet Count 340 10^3/cmm (157-399); Red Blood Count 3.91 10^6/uL (3.85-5.65); White Blood Count 7.84 10^3/uL (3.29-11.43)
[2025-08-15] MEDS: pantoprazole 40 mg SDV IVP (05:15)
[2025-08-15] MEDS: ondansetron 2 mg/ML SDV 2 mL 4 MG IVP ×2 (05:31→11:52)
[2025-08-15 05:33] LABS: Alanine Aminotransferase 9 U/L (0-33); Albumin Level 3.1 g/dL (3.5-5.2); Alkaline Phosphatase 76 U/L (35-105); Anion Gap 15.5 (5-19); Aspartate Amino Transferase 19 U/L (0-32); Blood Urea Nitrogen 23 mg/dL (8-23); Calcium 8.1 mg/dL (8.5-10.5); Carbon Dioxide 20 mmol/L (22-29); Chloride 107 mmol/L (98-107); Creatinine Clr Calc Pharmacy 43.8172; Globulin 2.7 g/dL (1.3-4.6); Glucose 129 mg/dL (65-115); Magnesium 1.9 mg/dL (1.7-2.3); Osmolality Calculated 293 mOsm/kg (285-295); Potassium 3.5 mmol/L (3.5-5.1); Sodium 139 mmol/L (136-145); Total Protein 5.8 g/dL (6.6-8.7)
[2025-08-15 07:30] VITALS: BP 128/68; PULSE 72; RESP 17; TEMP 36.8; O2SAT 95
[2025-08-15 09:32] LABS: Thyroid Stimulating Hormone 15.68 uIU/mL (0.27-4.20)
[2025-08-15 10:21] LABS: Iron 25 ug/dL (37-145); Total Iron Binding Capacity 216 mcg/dl; Unsaturated Iron Binding 191 ug/dL (112-347)
[2025-08-15] MEDS: magnesium citrate Btl 296 mL 150 ML PO (11:11)
[2025-08-15 11:17] VITALS: BP 146/72; PULSE 73; TEMP 36.8; O2SAT 95
--- NOTE | 2025-08-15 12:42 | P.PN_ITS ---
Subjective 2 Subjective: Patient was being prepped by Dr. Krishnamurthy for colonoscopy with mag citrate and patient did not tolerated. Started vomiting. Which triggered an NG tube placement. Abdomen remains benign Dr. Krishnamurthy ordered a repeat CT scan this afternoon Vitals/I&O/Wt Last Vital Signs Temp 98.2 F 08/15/25 11:17 Pulse 73 08/15/25 11:17 Resp 17 08/15/25 07:30 BP 146/72 08/15/25 11:17 Pulse Ox 95 08/15/25 11:17 O2 Del Method Room Air 08/15/25 11:17 08/14/25 08/15/25 08/15/25 22:59 06:59 14:59 Intake Total 1325.467 / 2685.467 1000 / 3685.467 Output Total 600 / 600 Balance 1325.467 / 2685.467 400 / 3085.467 Weight last 48 hrs Weight 190 lb 1 oz Weight 188 lb Physical Exam 2 Narrative: Chest: Unlabored breathing room air. No lymphadenopathy. Heart: Regular rate and rhythm. Abdomen: Soft, nontender, distended. No masses or lymphadenopathy. Data 08/15/25 04:53 08/15/25 04:53 A&P Assessment and plan 1. Paralytic ileus of small intestine and colon: 2. Pneumatosis coli: Plan: 79-year-old female whom surgery was initially consulted for pneumatosis coli. Abdomen has remained benign throughout her whole hospital stay. Medicine started treating her for generalized ileus with bowel regimen. Today magnesium citrate was administered by medicine to prep for a possible colonoscopy and patient did not tolerate this. She started vomiting. This prompted an NG tube placement. Her abdomen remains benign. Medicine ordered a CT scan. Since her abdomen is benign even if she has some residual pneumatosis coli she would not benefit from surgery. If there is a concern for anemia or changes in bowel habits she may be a candidate for elective colonoscopy as outpatient. I would not proceed with endoscopy as inpatient especially if she has some residual pneumatosis coli as I do not think this would be safe. She may just need to be transferred for evaluation by gastroenterology for GI dysmotility. This is outside my scope of practice. Discussed with charge nurse and patient's nurse. Will remain available. PDMP PDMP Reviewed: Not Reviewed Attestations 2 Medical Necessity Statement*: N/A Coding Level of Care Code 18592 Diagnoses Paralytic ileus of small intestine and colon K56.0 Pneumatosis coli K63.89
--- NOTE | 2025-08-15 14:22 | P.PN_ITS ---
Subjective 2 Subjective: 79-year-old female accompanied by her gr anddaughter who is an RN from [place]. Patient has past less than a couple stool her [place] stay here. She remains distended in the abdomen and reports nausea especially with the mag citrate. She tells me her thyroid medication was adjusted from 25 mcg daily to 50 mcg half the days in a week and 25 the other half. She has had a x 1 and a laparoscopic cholecystectomy as her only abdominal surgeries. She has been walking but has some nausea Vitals/I&O/Wt Last Vital Signs Temp 98.2 F 08/15/25 11:17 Pulse 73 08/15/25 11:17 Resp 17 08/15/25 07:30 BP 146/72 08/15/25 11:17 Pulse Ox 95 08/15/25 11:17 O2 Del Method Room Air 08/15/25 11:17 08/14/25 08/15/25 08/15/25 22:59 06:59 14:59 Intake Total 1325.467 / 2685.467 1000 / 3685.467 1000 / 1000 Output Total 600 / 600 Balance 1325.467 / 2685.467 400 / 3085.467 1000 / 1000 Weight last 48 hrs Weight 86.211 kg Weight 85.275 kg Physical Exam 2 Narrative: General well-developed well-nourished obese woman in no acute cardiopulmonary distress CV regular rate and rhythm with 3/6 systolic ejection murmur best heard at the left sternal border Lungs clear to auscultation bilaterally Abdomen positive bowel tones mildly diminished abdomen is distended without rebound Calves no tenderness cords pretibial edema skin is dry Data 08/15/25 04:53 08/15/25 04:53 A&P Assessment and plan 1. 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 Patient is notably hypothyroid with TSH today 15. Will IV levothyroxine 100 mcg daily increase activity. Repeat CT scan of the abdomen pelvis with Gastrografin and IV contrast today 2. Paralytic ileus of small intestine and colon: Increase Reglan to 10 mg every 6 hours ambulate hourly and roll [id number] while prone in bed. Increase activity. CT scan imaging today. If no findings other than distended small bowel and colon as previously seen will discuss with Dr. Rubens either colonoscopy here or transfer to Center with GI specialist 3. Hypothyroid: Repeat TSH 15.68. Ongoing to switch to IV levothyroxine 100 mcg daily 4. SANDRA (acute kidney injury): Mostly resolved with creatinine today 1.1 Plan: Full code Lovenox for DVT prophylaxis PDMP PDMP Reviewed: Not Reviewed Attestations 2 Medical Necessity Statement*: Patient remains in the hospital for treatment of ileus and nausea. Imaging today and if not resolving her ileus will request colonoscopy decompression either here or transferred to hospital with a GI specialist Coding Level of Care Code Acute Code for Chg Fwd Diagnoses Pneumatosis coli K63.89 Paralytic ileus of small intestine and colon K56.0 Hypothyroid E03.9 SANDRA (acute kidney injury) N17.9 Time Spent (min) 35
--- NOTE | 2025-08-15 15:35 | XRR_ITS ---
PROCEDURE INFORMATION: Exam: XR Chest Exam date and time: 08/15/2025 3:45 PM Age: 79 years old Clinical indication: Device placement; Ng tube; Additional info: Ng tube placement TECHNIQUE: Imaging protocol: Radiologic exam of the chest. Views: 1 view. COMPARISON: CR XR chest 1V portable [id number] 08/13/2025 7:37 AM FINDINGS: Tubes, catheters and devices: There is a nasogastric tube terminating in the left upper quadrant or stomach. The distal side port may be in the distal esophagus or gastroesophageal junction. Right-sided PICC line is again noted terminating near the cavoatrial junction. Lungs: Very mild atelectasis is suggested at the right base laterally. Pleural spaces: Unremarkable. No pleural effusion. No pneumothorax. Heart/Mediastinum: Unremarkable. No cardiomegaly. Bones/joints: Unremarkable. Intraperitoneal space: Surgical clips are noted again in the right upper quadrant. Dilated gas-filled bowel loops are seen in the upper abdomen. XR/XR chest 1V portable [id number] IMPRESSION: Nasogastric tube as described.
[2025-08-15] MEDS: iron sucrose 200 MG in sodium chloride 0.9% (100 ml) 100 ML 220 MG IV (15:39)
[2025-08-15 16:00] VITALS: BP 127/72; PULSE 85; RESP 17; TEMP 36.6; O2SAT 96
--- NOTE | 2025-08-15 17:08 | CTR_ITS ---
PROCEDURE INFORMATION: Exam: CT Abdomen And Pelvis With Contrast Exam date and time: 08/15/2025 8:15 PM Age: 79 years old Clinical indication: Other: Follow-up pneumotosis coli and ileus; Additional info: Follow-up pneumatosis coli and ileus, no oral contrast TECHNIQUE: Imaging protocol: Computed tomography of the abdomen and pelvis with contrast. Radiation optimization: All CT scans at this facility use at least one of these dose optimization techniques: automated exposure control; mA and/or kV adjustment per patient size (includes targeted exams where dose is matched to clinical indication); or iterative reconstruction. Contrast material: [id number]; Contrast volume: 100 ml; Contrast route: INTRAVENOUS (IV); COMPARISON: CT abdomen pelvis wo con [id number] 08/10/2025 2:27 PM RADIATION DOSE METRICS: Total DLP (mGy-cm): 867.53 FINDINGS: Pleural spaces: Trace left and small right pleural effusion, associated atelectasis with superimposed infection not totally excluded. Liver: Normal. No mass. Gallbladder and biliary ducts: Cholecystectomy clips. Pancreas: Normal. No ductal dilation. Spleen: Normal. No splenomegaly. Adrenal glands: Normal. No mass. Kidneys and ureters: Nonspecific although commonly benign renal cysts. Stomach and bowel: Continued distension of the colon, though decreased compared to prior, for instance ascending colon measures 6 cm in diameter versus 9.3 on prior. Persistent fluid attenuation luminal contents and blunting of the normal haustral markings. Virtually complete resolution of pneumatosis intestinalis. Appendix: No evidence of appendicitis. Intraperitoneal space: Mild free fluid in the pelvis. Probably stable compared to prior. Vasculature: Aortic and coronary atherosclerosis. Aortic atherosclerosis. No portal venous gas or free air. Lymph nodes: Mixed cystic and solid mass, possibly node adjacent to the ascending colon measuring up to 2 point 4 cm, probably not significantly changed compared to prior. Other smaller foci throughout the mesentery, possibly reactive. Urinary bladder: Unremarkable as visualized. Reproductive: Unremarkable as visualized. Bones/joints: Mild degenerative changes of lumbar vertebral bodies. Soft tissues: Unremarkable. CT/CT abdomen pelvis w con* [id number] IMPRESSION: 1. Trace left and small right pleural effusion, associated atelectasis with superimposed infection not totally excluded. 2. Continued distension of the colon, though decreased compared to prior, for instance ascending colon measures 6 cm in diameter versus 9.3 on prior. Persistent fluid attenuation luminal contents and blunting of the normal haustral markings. Virtually complete resolution of pneumatosis intestinalis. COMMENTS: Consistent with the [employer]'s Incidental Findings Committee white paper (J Am Sammy Radiol 2018): Any incidental renal lesion less than 1 cm or classified as too small to characterize, or any incidental cystic renal lesion characterized as simple-appearing, is likely benign. No follow-up imaging is recommended for these lesions per consensus recommendations based on imaging criteria.
[2025-08-15 19:46] VITALS: BP 147/79; PULSE 74; RESP 17; TEMP 36.9; O2SAT 93
[2025-08-15] MEDS: iohexol 350 mg/mL 500 mL Btl (per mL) IV (20:25)
[2025-08-15] MEDS: [UNRECOGNIZED DRUG - REMARK] IV (23:08)
[2025-08-16] VITALS: BP 133/62; PULSE 75; RESP 15; TEMP 37; O2SAT 91
[2025-08-16 06:00] VITALS: BP 136/69; PULSE 79; RESP 15; TEMP 36.8; O2SAT 91
[2025-08-16] MEDS: metoclopramide 5 mg/mL SDV 2 mL 10 MG IVP ×2 (06:01→22:13)
[2025-08-16 07:37] VITALS: BP 124/65; PULSE 76; RESP 17; TEMP 36.8; O2SAT 91
--- NOTE | 2025-08-16 08:28 | PC.SOCIAL ---
*IMM Update* Called Facility, gave copy of IMM to patient in room. Initialled and dated, placed in chart.
--- NOTE | 2025-08-16 11:08 | P.PN_ITS ---
Subjective 2 Subjective: No acute events overnight Abdomen benign CT scan unremarkable Vitals/I&O/Wt Last Vital Signs Temp 98.2 F 08/16/25 07:37 Pulse 76 08/16/25 07:37 Resp 17 08/16/25 07:37 BP 124/65 08/16/25 07:37 Pulse Ox 91 08/16/25 07:37 O2 Del Method Room Air 08/16/25 07:37 08/15/25 08/16/25 08/16/25 22:59 06:59 14:59 Intake Total 2041 / 3041 120.1 / 3161.1 1000 / 1000 Output Total 900 / 900 Balance 2041 / 3041 -779.9 / 2261.1 1000 / 1000 Weight last 48 hrs Weight 190 lb Weight 190 lb 1 oz Physical Exam 2 Narrative: Chest: Unlabored breathing room air. No lymphadenopathy. Heart: Regular rate and rhythm. Abdomen: Soft, nontender, distended. Benign. Data 08/15/25 04:53 08/15/25 04:53 A&P Assessment and plan 1. Pneumatosis intestinalis: Plan: 79-year-old female whom surgery was consulted for pneumatosis intestinalis. Repeat CT scan showed resolution of pneumatosis. No indication for surgery or an endoscopy as inpatient. Follow-up with me as outpatient. Rest of care per hospitalist. PDMP PDMP Reviewed: Not Reviewed Attestations 2 Medical Necessity Statement*: NA Coding Level of Care Code 56603 Diagnoses Pneumatosis intestinalis K63.89
[2025-08-16 11:39] VITALS: BP 144/79; PULSE 72; RESP 16; TEMP 36.7; O2SAT 92
--- NOTE | 2025-08-16 14:55 | P.PN_ITS ---
Subjective 2 Subjective: 79-year-old female past Lotta gas and fe els bowel urgency which she has not felt in the past. I gave her timeframe until noon to pass a bowel movement which she did not. I went by to confirm need to transfer the patient but she is reluctant to transfer. She states she feels like her bowels are about ready to recover. She is companied by her granddaughter who is an RN is present at bedside Vitals/I&O/Wt Last Vital Signs Temp 98.0 F 08/16/25 11:39 Pulse 72 08/16/25 11:39 Resp 16 08/16/25 11:39 BP 144/79 08/16/25 11:39 Pulse Ox 92 08/16/25 11:39 O2 Del Method Room Air 08/16/25 11:39 08/15/25 08/16/25 08/16/25 22:59 06:59 14:59 Intake Total 2041 / 3041 120.1 / 3161.1 1360 / 1360 Output Total 900 / 900 Balance 2041 / 3041 -779.9 / 2261.1 1360 / 1360 Weight last 48 hrs Weight 86.183 kg Weight 86.211 kg Physical Exam 2 Narrative: General well-developed well-nourished obese woman in no acute cardiopulmonary distress CV regular rate and rhythm with 3/6 systolic ejection murmur best heard at the left sternal border Lungs clear to auscultation bilaterally Abdomen positive bowel tones mildly diminished abdomen is distended without rebound Calves no tenderness cords pretibial edema skin is dry Data 08/15/25 04:53 08/15/25 04:53 CT Abd/Pel: Radiologist's impression: 1. Trace left and small right pleural effusion, associated atelectasis with superimposed infection not totally excluded. 2. Continued distension of the colon, though decreased compared to prior, for instance ascending colon measures 6 cm in diameter versus 9.3 on prior. Persistent fluid attenuation luminal contents and blunting of the normal haustral markings. Virtually complete resolution of pneumatosis intestinalis. A&P Assessment and plan 1. 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 Patient is notably hypothyroid with TSH today 15. Will IV levothyroxine 100 mcg daily increase activity. Pneumatosis almost completely resolved. The intestinal distention also modestly improved. The patient was reviewed by Dr. Motta at [facility]. I called to speak with GI specialist after pushing films to [facility] but GI deferred to general surgeon who I spoke to. He recommends additional enemas including lactulose. He states that the abdominal exam remains benign no surgical procedure is indicated. More specifically to my question he does not think that colonoscopic decompression would be appropriate as there is too much stool and so continue with motility stimulation with mobility, enemas. He also recommended bowel prep but I going to wait and make sure the patient is passing stool from below first 2. Paralytic ileus of small intestine and colon: Increase Reglan to 10 mg every 6 hours ambulate hourly and roll [id number] while prone in bed. Increase activity. CT scan imaging today. If no findings other than distended small bowel and colon as previously seen will discuss with Dr. Art either colonoscopy here or transfer to Center with GI specialist 3. Hypothyroid: Repeat TSH 15.68. Ongoing to switch to IV levothyroxine 100 mcg daily 4. SANDRA (acute kidney injury): Mostly resolved with creatinine today 1.1 Plan: Full code Lovenox for DVT prophylaxis PDMP PDMP Reviewed: Not Reviewed Attestations 2 Medical Necessity Statement*: Patient remains hospitalized for unresolved ileus.. She is still very constipated and will continue with enemas switching to lactulose enemas Coding Level of Care Code 55428 Diagnoses Pneumatosis coli K63.89 Paralytic ileus of small intestine and colon K56.0 Hypothyroid E03.9 SANDRA (acute kidney injury) N17.9 Time Spent (min) 35
[2025-08-16 16:00] VITALS: BP 131/68; PULSE 71; RESP 16; TEMP 36.8; O2SAT 93
[2025-08-16] MEDS: sodium chlor 0.9% + KCl 20 mEq 20 MEQ/1,000 ML BAG 75 MEQ IV (18:09)
[2025-08-16] MEDS: iron sucrose 200 MG in sodium chloride 0.9% (100 ml) 100 ML 220 MG IV (18:26)
[2025-08-16 21:00] VITALS: BP 146/65; PULSE 75; RESP 16; TEMP 36.9; O2SAT 92
[2025-08-16] MEDS: [UNRECOGNIZED DRUG - REMARK] IV (23:13)
[2025-08-17 01:51] VITALS: BP 150/74; PULSE 81; RESP 15; TEMP 36.9; O2SAT 93
[2025-08-17] MEDS: metoclopramide 5 mg/mL SDV 2 mL 10 MG IVP ×4 (03:38→21:46)
[2025-08-17 05:18] VITALS: BP 155/70; PULSE 77; RESP 16; TEMP 36.7; O2SAT 93
[2025-08-17] MEDS: sodium chlor 0.9% + KCl 20 mEq 20 MEQ/1,000 ML BAG 75 MEQ IV ×2 (08:21→22:59)
[2025-08-17 08:22] VITALS: BP 155/53; PULSE 72; RESP 16; TEMP 36.6; O2SAT 94
--- NOTE | 2025-08-17 09:55 | PC.NURSE ---
Patient put her call on to report her NG tube slipped out. Called Dr. Hyde who stated that it was up to the hospitalist if he wants it back in. Dr Krishnamurthy was called and stated if she is eating bites then leave it out. Patient and family member agreeable to this course of action.
[2025-08-17 10:38] LABS: Hematocrit 31.2 % (36-47); Hemoglobin 10.00 g/dL (11.27-16.99); Mean Corpuscular HGB Conc 32.1 g/dL (30-55); Mean Corpuscular Hemoglobin 26.0 pg (27-33); Mean Corpuscular Volume 81.3 fl (85-98); Nucleated Red Blood Cells % 0 %; Platelet Count 323 10^3/cmm (157-399); Red Blood Count 3.84 10^6/uL (3.85-5.65); White Blood Count 7.72 10^3/uL (3.29-11.43)
[2025-08-17 10:55] LABS: Alanine Aminotransferase 13 U/L (0-33); Albumin Level 3.1 g/dL (3.5-5.2); Alkaline Phosphatase 87 U/L (35-105); Anion Gap 16.6 (5-19); Aspartate Amino Transferase 20 U/L (0-32); Blood Urea Nitrogen 19 mg/dL (8-23); Calcium 8.2 mg/dL (8.5-10.5); Carbon Dioxide 23 mmol/L (22-29); Chloride 104 mmol/L (98-107); Creatinine Clr Calc Pharmacy 60.5756; Globulin 2.7 g/dL (1.3-4.6); Glucose 111 mg/dL (65-115); Magnesium 1.8 mg/dL (1.7-2.3); Osmolality Calculated 293 mOsm/kg (285-295); Potassium 3.6 mmol/L (3.5-5.1); Sodium 140 mmol/L (136-145); Total Protein 5.8 g/dL (6.6-8.7)
[2025-08-17 12:00] VITALS: BP 159/74; PULSE 80; RESP 16; TEMP 36.5; O2SAT 96
--- NOTE | 2025-08-17 14:07 | PM.PN ---
Subjective Subjective: 79-year-old female passed additional gas and feels bowel urgency but has not stooled. I spoke with [facility] general surgeon because GI deferred to general surgeon and he confirmed no operative plan but my question was really regarding the possibility of colonic decompression which he states is not possible because of too much stool in the colon and inability to do a bowel prep. He recommended continued enemas and bowel prep from above based on reassuring CT images Patient states has been marching in place and rolling in bed and this is collaborated with her RN granddaughter. I urged her to walk in the halls. NG tube was accidentally dislodged this morning but output in the preceding shift was only 200 cc. She has eaten mashed potatoes and has not had nausea or vomiting Vitals/I&O/Wt Last Vital Signs Temp 97.7 F 08/17/25 12:00 Pulse 80 08/17/25 12:00 Resp 16 08/17/25 12:00 BP 159/74 08/17/25 12:00 Pulse Ox 96 08/17/25 12:00 O2 Del Method Room Air 08/17/25 12:00 08/16/25 08/17/25 08/17/25 22:59 06:59 14:59 Intake Total 2181.9273 / 3541.9273 240 / 3781.9273 1969 Output Total 1000 / 1000 400 / 1400 Balance 1181.9273 / 2541.9273 -160 / 2381.9273 1969 Weight last 48 hrs Weight 86.183 kg Weight 86.183 kg Physical Exam Narrative: General well-developed well-nourished obese woman in no acute cardiopulmonary distress CV regular rate and rhythm with 3/6 systolic ejection murmur best heard at the left sternal border Lungs clear to auscultation bilaterally Abdomen positive bowel tones active no longer diminished abdomen is distended without rebound Calves no tenderness cords pretibial edema skin is dry Data 08/17/25 10:31 08/17/25 10:31 A&P Assessment and plan 1. 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 Patient is notably hypothyroid with TSH today 15. Will IV levothyroxine 100 mcg daily increase activity. Pneumatosis almost completely resolved. The intestinal distention also modestly improved. The patient was reviewed by Dr. Motta at [facility]. I called to speak with GI specialist after pushing films to Justyna but GI deferred to general surgeon who I spoke to. He recommends additional enemas including lactulose. He states that the abdominal exam remains benign no surgical procedure is indicated. More specifically to my question he does not think that colonoscopic decompression would be appropriate as there is too much stool and so continue with motility stimulation with mobility, enemas. He also recommended bowel prep but Im going to wait and make sure the patient is passing stool from below first 2. Paralytic ileus of small intestine and colon: Increase Reglan to 10 mg every 6 hours ambulate hourly and roll [id number] while prone in bed. Increase activity. CT scan imaging today. Continue with lactulose enemas and activity 3. Hypothyroid: Repeat TSH 15.68. Ongoing to switch to IV levothyroxine 100 mcg daily 4. SANDRA (acute kidney injury): Creatinine normal albumin 3.1 Plan: Full code Lovenox for DVT prophylaxis PDMP PDMP Reviewed: Not Reviewed Attestations Medical Necessity Statement*: Patient remains in the hospital for return of bowel function no surgical intervention or colonoscopy indicated at this time Coding Level of Care Code 36007 Diagnoses Pneumatosis coli K63.89 Paralytic ileus of small intestine and colon K56.0 Hypothyroid E03.9 SANDRA (acute kidney injury) N17.9 Time Spent (min) 35
[2025-08-17] MEDS: iron sucrose 200 MG in sodium chloride 0.9% (100 ml) 100 ML 220 MG IV (14:58)
[2025-08-17 16:00] VITALS: BP 148/76; PULSE 69; RESP 16; TEMP 36.9; O2SAT 94
[2025-08-17 20:00] VITALS: BP 144/73; PULSE 86; RESP 17; TEMP 36.9; O2SAT 96
[2025-08-18] VITALS: BP 130/66; PULSE 76; RESP 15; TEMP 37.2; O2SAT 92
[2025-08-18] MEDS: metoclopramide 5 mg/mL SDV 2 mL 10 MG IVP ×3 (02:26→13:10)
[2025-08-18] MEDS: ondansetron 2 mg/ML SDV 2 mL 4 MG IVP (04:31)
[2025-08-18 04:55] VITALS: BP 159/85; PULSE 94; RESP 17; TEMP 36.6; O2SAT 94
[2025-08-18] MEDS: LORazepam 1 MG/0.5 ML injection 0.5 MG IVP (05:38)
[2025-08-18 07:13] VITALS: BP 146/75; PULSE 80; RESP 17; TEMP 36.7; O2SAT 93
[2025-08-18] MEDS: lactulose oral liq 20 gm/30 mL UDC 40 GM PO (09:26)
--- NOTE | 2025-08-18 09:33 | PC.NURSE ---
Pt refused morning enema and MI lactulose.
--- NOTE | 2025-08-18 10:37 | P.PN_ITS ---
Subjective 2 Subjective: Called by nursing due to an episode of emesis in the morning Abdomen is still benign No leukocytosis Aggressive bowel regimen ordered by hospitalist including p.o. lactulose Vitals/I&O/Wt Last Vital Signs Temp 98.1 F 08/18/25 07:13 Pulse 80 08/18/25 07:13 Resp 17 08/18/25 07:13 BP 146/75 08/18/25 07:13 Pulse Ox 93 08/18/25 07:13 O2 Del Method Room Air 08/18/25 07:13 08/17/25 08/18/25 08/18/25 22:59 06:59 14:59 Intake Total 878.75 / 3340.00 1561.9273 / 4901.9273 240 / 240 Output Total 600 / 600 Balance 878.75 / 3340.00 961.9273 / 4301.9273 240 / 240 Weight last 48 hrs Weight 190 lb Weight 190 lb Physical Exam 2 Narrative: Chest: Unlabored breathing room air. No lymphadenopathy. Heart: Regular rate and rhythm. Abdomen: Soft, nontender, distended. No masses or lymphadenopathy. Data 08/17/25 10:31 08/17/25 10:31 A&P Assessment and plan 1. Pneumatosis intestinalis: 2. Paralytic ileus of small intestine and colon: Plan: 79-year-old female admitted with pneumatosis coli. Pneumatosis coli resolved almost entirely on last CT scan. No evidence of bowel obstruction on any imaging study. Abdomen remains benign. Lab work unremarkable. Suspect chronic GI dysmotility issues which should be evaluated by gastroenterology. At this point no indication for any surgical intervention. I also do not recommend inpatient endoscopy. Rest of care per hospitalist. PDMP PDMP Reviewed: Not Reviewed Attestations 2 Medical Necessity Statement*: N/A Coding Level of Care Code 85449 Diagnoses Pneumatosis intestinalis K63.89 Paralytic ileus of small intestine and colon K56.0
[2025-08-18 11:45] VITALS: BP 132/79; PULSE 93; RESP 16; TEMP 36.4; O2SAT 94
--- NOTE | 2025-08-18 12:02 | P.DS_ITS ---
Discharge Providers Date of Admission: 08/11/25 11:53 Date of Discharge: August 18, 2025 Attending Provider at Admission: Logan Abreu MD Attending Provider at Discharge: Shailesh Krishnamurthy MD Consults: Dr. Lawrence Hope MD General Surgery Primary Care Provider: LUPE Rodriguez Diagnoses at Discharge Discharge Diagnosis 1. Pneumatosis intestinalis: Details from hospital stay: Seen on admission but follow-up CT scan 08/15/2025 showed near complete resolution of the pneumatosis intestinalis but with persistent signs of ileus though decreased colon dimension 2. Paralytic ileus of small intestine and colon: Details from hospital stay: Continue with enemas increase activity and lactulose p.o. as tolerated. Once patient's colon is clear she needs to have a colonoscopy. If she improves and resolves her ileus in the next 2 days she should return to see her PCP and have her PICC line removed. Follow-up outpatient daily for PICC line care. If after 2 days she has not resolved her ileus she should return either here or in the hospital with GI specialist for hydration. Total colectomy is not recommended at this time and abdomen has been benign Reason for Visit Reason for Visit: constipation, vomiting Brief History: Terrie Hamilton is a 79 year old female with a past medical history of hypertension, hypothyroidism, who [facility] due to weakness, fatigue, constipation. Patient reports that she normally has a bowel movement every 3 days, she passes gas, she tells me that she has not had a bowel movement in over a week, she has tried laxatives, stool softeners with only a small bowel movement in the last week, feels nauseous, no vomiting, no lightheaded, dizziness, she does report feeling fatigue, malaise, no fevers, no chills, no cough, no abdominal pain, no new rashes, no chest pain, palpitations discussed CT scan findings, denies any abdominal pain, no prior history, of pneumatosis coli, she status post cholecystectomy, appendectomy, no bloody black stools history of subtotal thyroidectomy for Graves disease with radioactive ablation years ago. She was told they left some thyroid where she would never need thyroid medication. About 3 weeks ago they increased her dose of thyroid medication for hypothyroidism. She normally has BM daily and not hard after she drinks coffee but over 1 week she has not had good BM. She gave herself at home her own enema about two days ago and just got out a little soft stool like baby stool with no blood or mucus. No F/C/S. She is having crampy pain over transve rse colon. She has had two episodes of N/V and just some yellow bile came out. She hasn't really eaten in 4 days. She feels distended and bloated. She was seen twice at [facility] in [place] and no CT done but plain xray and sent home with lactulose with no results. Her father had colon cancer around 100 years old. She has never had colonoscopy. CT today does not show colon mass but some pneumatosis in ascending colon with long stool here and mild distention and transverse colon with air moderately distended and descending colon with long stool with even milder distention. WBC 11k and exam with mild tenderness and no rebound. Meds include lexapro for nervous condition, HTN meds and thyroid medication. She is not on a blood thinner. She has had appy, partial hysterectomy, c sections, cholecystectomy. Hospital Course Hospital Course 79-year-old female found to have pneumatosis intestinalis by CT scan but abdominal exam was benign she was treated with ciprofloxacin for 8 doses. Patient's white count resolved and she never had acute abdomen. Repeat CT and scan showed continued ileus but the pneumatosis almost completely resolved. Patient was seen daily by general surgeon as well as myself and did not develop indication for surgery. We attempted enemas and Reglan. She passed gas and minimal stool. NG tube was placed twice with good return that would eventually decrease. We consider transfer to [facility] to GI service but GI service deferred to general surgery who gave similar advice to Dr. Art that surgery was not indicated given benign abdomen. Furthermore general surgeon did not feel that colonoscopy would be possible given significant fecal matter still in the colon. Patient was counseled to ambulate is much as possible but she was reluctant to do so and so I specified 15 minutes every 1 hour while awake. She did this some with her grand daughter who is a nurse but certainly less than instructed. Patient still passing only gas and minimal stool. She has some nausea and has vomited when taking too much clear liquids. Abdomen remains benign. She declines NG tube or repeat CT scan. We discussed options of enemas which she did not want to do due to it making a mess. We discussed walking more and she thinks she would walk more if she was outside the hospital. For this reason she is discharged home with her PICC line to come in for PICC care daily and PICC removal if her bowel function removed in the next 24 to 48 hours. If that does not return then she can be turn for admission here or at a hospital with a GI specialist. Should she have pain fever or ongoing vomiting she should return to the nearest hospital emergently. Physical Exam Narrative: General well-developed well-nourished obese woman in no acute cardiopulmonary distress CV regular rate and rhythm with 3/6 systolic ejection murmur best heard at the left sternal border Lungs clear to auscultation bilaterally Abdomen positive bowel tones active mildly diminished abdomen is distended without rebound Calves no tenderness cords pretibial edema skin is dry Discharge Data Studies Completed and Pending Completed Studies During Hospitalization Category Date Time Status CT abdomen pelvis w con* [id number] Urgent Cat Scan 08/15/25 17:[address] abdomen pelvis wo con [id number] Stat Cat Scan 08/10/25 13:32 Completed CXRP [XR chest 1V portable [id number]] Routine Exams 08/12/25 11:01 Completed XR abdomen 1V* [id number] DAILY Exams 08/12/25 10:00 Completed XR abdomen 1V* [id number] DAILY Exams 08/13/25 10:00 Completed XR abdomen 1V* [id number] DAILY Exams 08/14/25 10:00 Completed XR abdomen 1V* [id number] Stat Exams 08/11/25 07:16 Completed XR chest 1V portable [id number] Routine Exams 08/11/25 15:51 Completed XR chest 1V portable [id number] Routine Exams 08/13/25 07:29 Completed XR chest 1V portable [id number] Routine Exams 08/15/25 15:35 Completed XR chest 1V portable [id number] Urgent Exams 08/10/25 17:17 Completed Radiology Impressions Abdomen X-Ray 08/14/25 10:00 Impression: Dilated small bowel and colon consistent with severe generalized ileus. Chest X-Ray 08/15/25 15:35 IMPRESSION: Nasogastric tube as described. Abdomen/Pelvis CT 08/15/25 17:08 IMPRESSION: 1. Trace left and small right pleural effusion, associated atelectasis with superimposed infection not totally excluded. 2. Continued distension of the colon, though decreased compared to prior, for instance ascending colon measures 6 cm in diameter versus 9.3 on prior. Persistent fluid attenuation luminal contents and blunting of the normal haustral markings. Virtually complete resolution of pneumatosis intestinalis. COMMENTS: Consistent with the [employer] [place] [employer]'s Incidental Findings Committee white paper (J Am Sammy Radiol 2018): Any incidental renal lesion less than 1 cm or classified as too small to characterize, or any incidental cystic renal lesion characterized as simple-appearing, is likely benign. No follow-up imaging is recommended for these lesions per consensus recommendations based on imaging criteria. Laboratory Results WBC 7.72 10^3/uL (3.29-11.43) 08/17/25 10:31 RBC 3.84 10^6/uL (3.85-5.65) L 08/17/25 10:31 Hgb 10.00 g/dL (11.27-16.99) L 08/17/25 10:31 Hct 31.2 % (36-47) L 08/17/25 10:31 MCV 81.3 fl (85-98) L 08/17/25 10:31 MCH 26.0 pg (27-33) L 08/17/25 10:31 MCHC 32.1 g/dL (30-55) 08/17/25 10:31 RDW 18.4 % (12.1-15.1) H 08/17/25 10:31 Plt Count 323 10^3/cmm (157-399) 08/17/25 10:31 MPV 8.9 fL (7.4-10.4) 08/17/25 10:31 Neut % (Auto) 64.6 % 08/17/25 10:31 Lymph % (Auto) 20.6 % 08/17/25 10:31 [place] % (Auto) 11.3 % 08/17/25 10:31 Eos % (Auto) 1.8 % 08/17/25 10:31 Baso % (Auto) 0.5 % 08/17/25 10:31 Neut # (Auto) 4.99 10^3/uL (1.8-7.7) 08/17/25 10:31 Lymph # (Auto) 1.6 10^3/uL (0.8-4.8) 08/17/25 10:31 [place] # (Auto) 0.9 10^3/uL (0.2-0.9) 08/17/25 10:31 Eos # (Auto) 0.1 10^3/uL (0.0-0.8) 08/17/25 10:31 Baso # (Auto) 0.0 10^3/uL (0.0-0.1) 08/17/25 10:31 Nucleated RBC % (auto) 0 % 08/17/25 10:31 Nucleated RBCs # 0.0 /100WBC 08/17/25 10:31 Sodium 140 mmol/L (136-145) 08/17/25 10:31 Potassium 3.6 mmol/L (3.5-5.1) 08/17/25 10:31 Chloride 104 mmol/L (98-107) 08/17/25 10:31 Carbon Dioxide 23 mmol/L (22-29) 08/17/25 10:31 Anion Gap 16.6 (5-19) 08/17/25 10:31 BUN 19 mg/dL (8-23) 08/17/25 10:31 Creatinine 0.8 mg/dL (0.5-0.9) 08/17/25 10:31 GFR Calculation Not Reportable 08/17/25 10:31 Glucose 111 mg/dL (65-115) 08/17/25 10:31 POC Glucose 99 mg/dL (70-110) 08/17/25 20:10 Calculated Osmolality 293 mOsm/kg (285-295) 08/17/25 10:31 Lactic Acid 1.7 mmol/L (0.5-2.2) 08/10/25 13:48 Calcium 8.2 mg/dL (8.5-10.5) L 08/17/25 10:31 Phosphorus 3.9 mg/dL (2.5-4.5) 08/17/25 10:31 Magnesium 1.8 mg/dL (1.7-2.3) 08/17/25 10:31 Iron 25 ug/dL (37-145) L 08/15/25 04:53 TIBC 216 mcg/dl 08/15/25 04:53 % Saturation 11.5 % (20-50) L 08/15/25 04:53 Unsat Iron Binding 191 ug/dL (112-347) 08/15/25 04:53 Total Bilirubin 0.2 mg/dL (0.15-1.2) 08/17/25 10: AST 20 U/L (0-32) 08/17/25 10: ALT 13 U/L (0-33) 08/17/25 10: Alkaline Phosphatase 87 U/L (35-105) 08/17/25 10:31 Total Protein 5.8 g/dL (6.6-8.7) L 08/17/25 10:31 Albumin 3.1 g/dL (3.5-5.2) L 08/17/25 10:31 Globulin 2.7 g/dL (1.3-4.6) 08/17/25 10:31 Lipase 24 U/L (13-60) 08/10/25 13:48 TSH 15.68 uIU/mL (0.27-4.20) H 08/15/25 04:53 Free T4 0.93 ng/dL (0.82-1.77) 08/10/25 13:48 Free T3 1.3 PG/ML (2.0-4.4) L 08/10/25 13:48 Urine Color Dark yellow (Yellow) A 08/10/25 14:14 Urine Appearance Cloudy (CLEAR) A 08/10/25 14:14 Urine pH 5.0 (5-7) 08/10/25 14:14 Ur Specific [place] 1.024 (1.005-1.030) 08/10/25 14:14 Urine Protein 1+ (Negative) A 08/10/25 14:14 Urine Glucose (UA) Negative (Normal) 08/10/25 14:14 Urine Ketones Trace (Negative) 08/10/25 14:14 Urine Blood Trace (Negative) A 08/10/25 14:14 Urine Nitrate Negative (Negative) 08/10/25 14:14 Urine Bilirubin Negative (Negative) 08/10/25 14:14 Urine Urobilinogen 1.0 mg/dL (Negative) 08/10/25 14:14 Ur Leukocyte Esterase 2+ (Negative) A 08/10/25 14:14 Urine RBC 0-4 /hpf (0-2) H 08/10/25 14:14 Urine WBC 15-25 /hpf (0-5) H 08/10/25 14:14 Ur Squamous Epith Cells 15-25 /hpf (0-5) H 08/10/25 14:14 Amorphous Sediment Not Reportable 08/10/25 14:14 Urine Bacteria 2+ /hpf (NONE) H 08/10/25 14:14 Hyaline Casts 5-10 /lpf H 08/10/25 14:14 Vitals Last Vital Signs Temp 97.6 F 08/18/25 11:45 Pulse 93 08/18/25 11:45 Resp 16 08/18/25 11:45 BP 132/79 08/18/25 11:45 Pulse Ox 94 08/18/25 11:45 O2 Del Method Room Air 08/18/25 11:45 Discharge Plan Discharge Patient Disposition: Home Condition: Stable Prescriptions: New Nygsv-Kz-Ujr Enema 19-7 gram/118 mL Enema 133 ml KY Q12H Qty: 532 0RF lactulose 10 gram/15 mL Solution 200 g PO Q6H Qty: 300 0RF Rx Instructions: Hold this medication if you are having nausea vomiting bisacodyl 10 mg Suppository 10 mg [place] DAILY Qty: 12 0RF lisinopril 10 mg Tablet 10 mg PO DAILY Qty: 30 0RF pantoprazole 40 mg Tablet,Delayed Release (Dr/Ec) 40 mg PO DAILY Qty: 30 0RF levothyroxine [Synthroid] 100 mcg tablet 100 mcg PO DAILY Qty: 30 0RF Continued escitalopram oxalate 10 mg tablet 10 mg PO DAILY 90 Days Qty: 90 2RF Discontinued levothyroxine 25 mcg tablet See Rx Instructions .ROUTE .COMPLEX Qty: 120 1RF Dose Instruction: TAKE 1 TABLET BY MOUTH DAILY TUESDAY-TUESDAY Rx Instructions: TAKE 1 TABLET BY MOUTH DAILY TUESDAY THROUGH TUESDAY AND 2 TABLETS ON TUESDAY THROUGH TUESDAY. enalapril-hydrochlorothiazide 10-25 mg tablet 1 tab PO DAILY Discharge Order = DC NOW: Discharge Order (Routine); Ordered 08/18/25 Ordered By: Shailesh Krishnamurthy Referrals: RICHY Chávez, FEATHER DUSTER WINDER [Primary Care Provider, Family Practice] - 4-7 days Discharge Diet: Clear Liquid Discharge Activity: Increase activity as tolerated Patient Instructions: Constipation (GEN), Ileus (GEN), Opioid Safety, Patient Portal & Vi Instructions Activity Restrictions/Additional Instructions: Ambulate 15 minutes an hour every hour while awake. Do not lay in bed when not sleeping. Take your medications as prescribed including the Dulcolax suppository and fleets enema Sip clear liquids as tolerated If you passed your gas and stool then follow-up with your primary care physician to have your PICC line removed Come back for PICC line care daily outpatient. Do not put anything in your PICC line or attempt to do PICC line care yourself If you do not pass gas or stool or become nauseated, febrile or have abdominal pain return to the ER for readmission. If you are not in pain or vomiting but still bloated and not resolving your problem you could consider going to a hospital with a GI specialist. We have evaluated your colon by physical exam and CT scan and currently you do not have an indication for surgery. Other options for treatment are NG tube, enemas, increase mobility and finally bowel resection. At this time I do not recommend bowel resection and recommend increase activity and enemas. As we discussed we agree that your activity may improve outside of the hospital room and bed. Discharge Attestations Time Spent in Discharge Care*: greater than 30 min Quality Metrics Clinical Quality Measures [ No reported AMI, CVA or VTE this stay] Coding Level of Care Code 48393 Diagnoses Pneumatosis intestinalis K63.89 Paralytic ileus of small intestine and colon K56.0 Time Spent (min) 50
[2025-08-18 13:48] VITALS: BP 132/79; PULSE 93; O2SAT 94
== END 2025-08-18 13:49 | disposition home or self-care (01) | DRG 394 ==
LOC: ER 17:06 → MEDSURG 21:16
PROVIDERS: Specialist; Admitting Provider Family Medicine; Emergency Provider Emergency Medicine; PCP Nurse Practitioner Family; Visit Provider Internal Medicine
DX: K63.89 Other specified diseases of intestine (principal); N17.9 Acute kidney failure, unspecified; N39.0 Urinary tract infection, site not specified; K56.0 Paralytic ileus; I10 Essential (primary) hypertension; E03.9 Hypothyroidism, unspecified; E86.0 Dehydration; R91.1 Solitary pulmonary nodule; E87.6 Hypokalemia; D50.9 Iron deficiency anemia, unspecified; Z90.49 Acquired absence of other specified parts of digestive tract; Z90.710 Acquired absence of both cervix and uterus
CPT/HCPCS: 36415; 36416; 36573; 71045; 74018; 74176; 74177; 80053; 81001; 82962; 83540; 83550; 83605; 83690; 83735; 84100; 84439; 84443; 84481; 85025; 94664; 96365; 96367; 96372; 99285; G0378; J0612; J0744; J1650; J1756; J2060; J2405; J2470; J2765; J3475; J3480; J3490; J7030; J9999

== ENCOUNTER 2025-09-13 12:18 | Emergency (ER) | payer MEDICARE, MEDICAID, SELFPAY ==
--- OUTSIDE RECORDS SUMMARY | 2020-05-08 02:41 | XMS_ITS | Continuity of Care Document ---
Author Organization [facility] Address [address] [place] [address] Phone Care Team Providers Care Cardiac/Vascular Sonographer Name Role Phone No Information Unavailable Unavailable Procedures Procedure Date HT MUSCLE IMAGE SPECT, MULT CARDIOVASCULAR STRESS TEST Advance Directives Directive Yes / No Effective Date File Name No Information Encounters Encounter Description Practice Location Reason(s) For Visit Diagnoses Date Provider Providers Copied on Encounter [facility], [address], [place], [address], [place] tel:[phone] No Information 0 No Information [facility], [address], [place], [address], [place] tel:[phone] [facility] Phill Gamboa No Information 0 MD Mario Folsom. [facility] , [address], [place], [id number], [place]. tel:[phone] Referring Provider: Michael Fernandez MD, [address], [place], [address] . tel:[phone] Family History Family Member Type Diagnosis Age At Onset No Information Payers Payer name Insurance type Covered republican ID Authoriza tion(s) Medicare MB [id number] Medicaid [id number] Social History Type Description Quantity Date Captured [...]
[2025-09-13 12:21] VITALS: BP 171/86; PULSE 75; RESP 16; TEMP 36.4; O2SAT 97; BMI 24.9
--- OUTSIDE RECORDS SUMMARY | 2025-09-13 12:27 | XMS_ITS | Encounter Summary ---
Author Organization [facility] Address [address] [place] [address] Care Team Providers Care Dog Barber Name Role Phone Unavailable Primary Care Provider Unavailabl e Encounter Details Date Type Department Care Team (Late st Contact Info) Description 08/08/2025 Results Follow-Up [facility] Emergency Medicine [address] [facility] [address] [place] [id number] Rich Jacobs MD [address] [facility] [address] [place] [address] URINE CULTURE Social History Tobacco [...] about transportation for future doctor visits, pick up truck driver medication, etc.? No 2024 Housing Stability Answer [...] on file Legal Sex Female 11:35 AM [employer] OPER[employer] Gender Identity Not on file Sexual Orientation Not on file documented as of this encounter Plan of Treatment Not on file documented as of this encounter Visit Diagnoses Not on filedocumented in this encounter
--- OUTSIDE RECORDS SUMMARY | 2025-09-13 12:27 | XMS_ITS | Clinical Summary ---
Author Organization [facility] Address [address] [place]: Epic Prelude ADT MELANIE GOMEZ [address] Care Team Providers Care Supervisor Production Name Role Phone Unavailable Primary Care Provider Unavailabl e Allergies Active Allergy Reactions Criticality Noted Date Comments Codeine Nausea and Vomiting Low 11/02/2010 Penicillin Rash Low 08/06/2025 Sulfa (Sulfonamide Antibiotics) Rash Low 03/2009 Medications levothyroxine 50 mcg tablet Take 50 mcg by mouth daily in the morning. Active enalapril-hydroC HLOROthiazide (VASERETIC) 10-25 mg Tablet Take 1 Tablet by mouth daily. Active escitalopram oxalate (LEXAPRO) 10 mg tablet Take 10 mg by mouth daily. Active Active Problems Problem Noted Date Diagnosed Date Chronic idiopathic constipation 08/06/2025 Asymptomatic bacteriuria 08/06/2025 Encounters Date Type Department Care Team Description 09/03/2025 External Device Data [facility] ABSTRACTION Provider, Abstract 08/13/2025 External Device Data [facility]STRA[facility] Provider, Abstract 08/13/2025 External Device Data [facility] Provider, Abstract 08/13/2025 External Device Data [facility] Provider, Abstract 08/10/2025 8:35 AM CDT - 08/10/2025 11:59 PM CDT Hospital Encounter [facility] [place] [address] [place] [id number] Ambulance, [facility] Discharge Disposition: [facility] 08/08/2025 5:25 PM CDT - 08/08/2025 5:38 PM CDT Emergency [facility] Emergency Medicine [address] [place] [id number] Bal Moreno MD Discharge Disposition: Left without being seen 08/08/2025 Results Follow-Up [facility] Emergency Medicine [address] [place] [id number] Rich Jacobs MD URINE CULTURE 08/06/2025 4:50 PM CDT - 08/06/2025 6:19 PM CDT Emergency [facility] Emergency Medicine [address] [place] [id number] Rich Jacobs MD Chronic idiopathic constipation (Primary [...] worry about transportation for future doctor visits, strip picker medication, etc.? No 2024 Housing Stability [...] on file Legal Sex Female 11:35 AM [employer] INST[employer]ER Gender Identity Not on file Sexual Orientation [...] Comments DTAP/TDAP/TD VACCINES (1 - Tdap) 1964 PNEUMOCOCCAL VACCINE 50+ YEARS (1 of 1 [...] - 2 /hpf 08/06/2025 5:49 PM CDT [facility] RBC UA 0-2 0 - 2 /hpf 08/06/2025 5:49 PM CDT [facility] BACTERIA UA 1+(A) Negative /hpf 08/06/2025 5:49 PM CDT [facility] EPITHELIAL CELLS, URINE 0-5 0 - 5 /hpf 08/06/2025 5:49 PM CDT [facility] Urine URINE SPECIMEN OBTAINED BY CLEAN CATCH PROCEDURE / Unknown Collection / Unknown 08/06/2025 5:12 PM CDT 08/06/2025 5:41 PM CDT us Rich Jacobs MD URINE ORDERABLES Final Result [facility] # [id number] [address] [place] [id number] * (ABNORMAL) URINALYSIS WITH REFLEX MICROSCOPIC (08/06/2025 5:12 PM CDT) COLOR UA Yellow Pale to Dark Yellow 08/06/2025 5:49 PM CDT [facility] CLARITY UA Clear Clear 08/06/2025 5:49 PM CDT [facility] SPECIFIC GRAVITY UA 1.015 1.003 - 1.035 08/06/2025 5:49 PM CDT [facility] PH UA 5.5 5.0 - 8.0 08/06/2025 5:49 PM CDT [facility] LEUKOCYTE ESTERASE UA 1+(A) Negative 08/06/2025 5:49 PM CDT [facility] NITRITE UA Negative Negative 08/06/2025 5:49 PM CDT [facility] PROTEIN UA Negative Negative 08/06/2025 5:49 PM CDT [facility] GLUCOSE UA Negative Negative 08/06/2025 5:49 PM CDT [facility] KETONES UA Negative Negative 08/06/2025 5:49 PM CDT [facility] UROBILINOGEN UA 0.2 <2.0 mg/dL 5:49 PM CDT [facility] BILIRUBIN UA Negative Negative 08/06/2025 5:49 PM CDT [facility] BLOOD UA 1+(A) Negative 08/06/2025 5:49 PM CDT [facility] Urine URINE SPECIMEN OBTAINED BY CLEAN CATCH PROCEDURE / Unknown Collection / Unknown 08/06/2025 5:12 PM CDT 08/06/2025 5:41 PM CDT us Rich Jacobs MD URINE ORDERABLES Final Result [facility] CLIA # [id number] [address] [place] [id number] * URINE CULTURE (08/06/2025 5:12 PM CDT) CULTURE Polymicrobial growth consistent with normal urethral jean marie and/or colonizing bacteria 08/08/2025 12:[address] [facility] Urine URINE SPECIMEN OBTAINED BY CLEAN CATCH PROCEDURE / Unknown Collection / Unknown 08/06/2025 5:12 PM CDT 08/06/2025 6:02 PM CDT us Rich Jacobs MD MICROBIOLOGY - GENERAL ORDERABL ES Final Result [facility] CLIA # [id number] [address] [facility] [place] [address] from Last 3 Months Insurance MEDICAID [place] MED[place]ARE PART A AND B
--- OUTSIDE RECORDS SUMMARY | 2025-09-13 12:27 | XMS_ITS | Patient Health Record ---
Author Organization [facility] Address [address] [place] [address] Care Team Providers Care Science Technicians Name Role Phone DR. Dereck Sprague Primary [...] Date Medicare [address] [place] [address] Alfonso Terrie Self - patient is the insured Medicaid [address] [place] [address] [phone] [id number] Alfonso Terrie Self - patient is the insured Medicaid Dental [address] [place] [address] [phone] [id number] AlfonsoTerrie Self - patient is the insured [employer] [id number] [place] [address] Caro Hamiltonita Self - patient is the insured Medical (General) History Medical History History ICD Code heart murmur Thyroid disease HIGH BLOOD PRESSURE
--- NOTE | 2025-09-13 12:30 | CT_ITS ---
WS: [id number] CT ABDOMEN PELVIS TECHNIQUE: Contrast-enhanced CT of the abdomen and pelvis with coronal and sagittal reformatted images. CLINICAL INFORMATION: hx colon ca s/p urostomy/ileostomy, p/w pain COMPARISON: CT 08/15/25 DLP: 733.[address] scans at [facility] use at least one of these dose optimization techniques: automated exposure control; mA and/or kV adjustment per patient size (includes targeted exams where dose is matched to clinical indication); or iterative reconstruction. FINDINGS: LEFT lower quadrant colostomy. RIGHT lower quadrant ileostomy. Urine distended bladder with air-fluid level. Evidence of bowel resection in the pelvis with anastomosis. No evidence of high-grade obstruction. A few air-filled loops of small bowel in the pelvis adjacent to the anastomosis but no evidence of high- grade obstruction. Mild diffuse thickening and enhancement involving the residual colon and transverse colon suspicious for infectious or inflammatory colitis extending to the ostomy. Ileostomy and colostomy appear patent. Hepatomegaly. Fatty liver. A few stable low-attenuation lesions in the liver. Small to moderate esophageal hiatal hernia. Evidence of esophagitis and gastritis. Air-fluid level in the stomach. Cholecystectomy clips. Portal vein and splenic vein are patent. Fatty atrophy of the pancreas. Normal spleen. Mild RIGHT hydronephrosis progressed compared to previous with dilatation of the renal pelvis. RIGHT lower pole renal cyst. Mild dilatation of the RIGHT ureter proximally. No hydronephrosis in the LEFT kidney. Normal renal parenchymal enhancement. Prior hysterectomy. Bibasilar atelectasis. Adrenal glands are normal. CT/CT abdomen pelvis w con* [id number] IMPRESSION: 1. Interval postoperative changes of colostomy and ileostomy which appear murphy nt. 2. No evidence of high-grade obstruction. 3. Mild RIGHT hydronephrosis is progressed compared to 08/15/2025 dilatation of the RIGHT proximal ureter and renal pelvis. No LEFT hydronephrosis. 4. Urine distended bladder with small amount of air in the nondependent bladde r. 5. Suspected infectious or inflammatory colitis involving the residual colon. 6. Evidence of esophagitis and gastritis with a small to moderate esophageal h iatal hernia. 7. A few clustered loops of small bowel in the pelvis with air-fluid levels ne ar the anastomosis may be due to adhesions although no evidence of high-grade o bstruction.
[2025-09-13] MEDS: ondansetron 2 mg/ML SDV 2 mL 4 MG IVP (12:55)
[2025-09-13 13:13] LABS: Hematocrit 33.0 % (36-47); Hemoglobin 10.70 g/dL (11.27-16.99); Mean Corpuscular HGB Conc 32.4 g/dL (30-55); Mean Corpuscular Hemoglobin 27.2 pg (27-33); Mean Corpuscular Volume 84.0 fl (85-98); Nucleated Red Blood Cells % 0 %; Platelet Count 317 10^3/cmm (157-399); Red Blood Count 3.93 10^6/uL (3.85-5.65); White Blood Count 7.55 10^3/uL (3.29-11.43)
--- NOTE | 2025-09-13 13:13 | W.ED.WEAKNES ---
HPI - Weakness General: Chief complaint: Weakness Stated complaint: weakness - loss of appetie History of Present Illness: 80-year-old female past medical history significant for hypertension, hypothyroidism, SANDRA, GERD, recently admitted to this hospital a month ago for bowel obstruction of unclear etiology, ended up being discharged and then [place] presenting to [facility] in [place] where she was eventually diagnosed with a malignant bowel obstruction secondary to 2 isolated colon cancers that required total colectomy with placement of an ileostomy and urostomy, patient is currently receiving virtual hospice services at home and some home health services but no home hospice currently available most recently, is planning on establishing care with an oncologist on Tuesday here in [place] to discuss possible treatment options but this has not been broached yet, presenting to the emergency department with approximately 3-day history of increasing weakness fatigue poor p.o. intak has been unable to ambulate over the last 2 to 3 days but was previously ambulating with a walker/cane, she endorses nonspecific mild abdominal pain, persistent nausea and vomiting, and poor appetite as her primary symptoms, she denies back pain, denies numbness tingling or focal/unilateral weakness to the lower extremities, reportedly per daughter told by PCP to come in for evaluation of the symptoms. Related Data Previous Rx's ?Medication ?Instructions ?Recorded escitalopram oxalate 10 mg tablet 10 mg PO DAILY 90 days #90 tabs 03/11/25 levothyroxine 100 mcg tablet 100 mcg PO DAILY #30 tabs 08/18/25 (Synthroid) sodium phosphates 19 gram-7 133 ml CO Q12H #532 mL 08/18/25 gram/118 mL enema (Pdyyf-Jn-Dux Enema) pantoprazole 40 mg tablet,delayed 40 mg PO DAILY #30 tabs 09/05/25 release enalapril maleate 10 mg tablet 10 mg PO DAILY #90 tabs 09/12/25 ondansetron 4 mg disintegrating 4 mg PO Q8H PRN nausea and 09/12/25 tablet vomiting 30 days #30 tabs ondansetron 8 mg disintegrating 8 mg PO Q8H PRN nausea and 09/13/25 tablet vomiting 5 days #20 tabs Allergies Allergy/AdvReac Type Severity Reaction Status Date / Time Sulfa (Sulfonamide Allergy Intermediate sick rash Verified 09/12/25 11:23 Antibiotics) codeine Allergy made her Verified 09/12/25 11:23 feel off Penicillins Allergy Unknown Verified 09/12/25 11:23 PFSH ED PFSH: Medical History Acquired absence of other specified parts of digestive tract Sigmoid colectomy with an ileostomy [facility], 08/21/2025 Anemia Metastatic adenocarcinoma Gastroesophageal reflux disease without esophagitis Pneumatosis intestinalis Mammogram declined Hypothyroid Hypothyroid Encounter to establish care Vitamin D deficiency Medication management Hypertension screen Anxiety and depression History of cardiac murmur History of thyroid storm Essential hypertension December 2020 Prolapsed bladder H/O radioactive iodine thyroid ablation November and December 2020 Surgical History Ileostomy status Sigmoid colectomy with an ileostomy [facility], 08/21/2025 H/O wrist surgery S/P subtotal thyroidectomy 46 years ago [facility] S/P cholecystectomy History of ankle surgery History of hysterectomy History of appendectomy Family History Other Hypertension Social History Smoking and tobacco/nicotine status: never used tobacco/nicotine Physical Exam Narrative: EXAM NARRATIVE: Gen: A&Ox4, no acute distress, nontoxic appearing HEENT: Normocephalic, atraumatic, no scleral icterus, external ears normal, dry mucous membranes Neck: Supple, full range of motion, no observable masses Lungs: No Respiratory distress, Lungs clear to auscultation bilaterally no rales, rhonchi, wheezing CV: Regular rate and rhythm, no murmur, no pitting edema to lower extremities bilaterally Abdomen: Soft, nondistended, mildly tender to palpation to the periumbilical region and the right hemiabdomen no distention, there is an ileostomy and urostomy in place, no purulent drainage or bleeding MSK: No joint swelling, FROM all 4 extremities Skin: No rashes, petechiae, lesions. Normal color per patient. Neuro: Alert and oriented, no slurred speech, sensation and strength grossly intact all 4 extremities Psych: Appropriate for situation. Course Reevaluation(s): Reevaluation #1: Patient reassessed at this time, her symptoms are improved subjectively with fluids and electrolyte repletion, she reports that she was recently recommended to start on pantoprazole which was filled yesterday but has not yet been started, she reports that part of her lack of appetite is due to an acid sensation in her throat and I recommend that the pantoprazole may help with this. She was also told that she was supposed to receive a prescription for Zofran but they did not receive this so I will prescribe this to them. Her workup shows multiple nonspecific abnormalities hypokalemia hypomagnesemia, some dilated loops of bowel without high-grade bowel obstruction, some mild progression of the right sided hydronephrosis, mild anion gap elevation consistent with malnutrition/starvation ketosis, no SANDRA or UTI, I do not see any emergency pathology that necessitates admission and patient prefers to be at home, they have expedited follow-up with oncology on Tuesday to establish a plan of care related to her new oncologic diagnosis. They understand the need to return to the ER if their symptoms worsen over the weekend. They will attempt to augment her nutrition with high calorie drinks/Ensure/muscle milk, and try to optimize nutrition and hydration to the extent possible. Time: 15:25 Vital Signs: Vital signs: Vital Signs Temperature 97.6 F 09/13/25 12:21 Pulse Rate 91 09/13/25 13:14 Respiratory Rate 16 09/13/25 12:21 Blood Pressure 160/91 09/13/25 13:14 Pulse Oximetry 96 09/13/25 13:14 Oxygen Delivery Me thod Room Air 09/13/25 12:21 MDM - Weakness Medical Decision Making 80-year-old female recently diagnosed with colon cancer status post ileostomy and urostomy placement within the past month at [facility], pending oncology outpatient appointment on Tuesday to discuss treatment options, presenting to emergency department with 3-day history of progressively worsening weakness nausea poor appetite and mild abdominal pain, ostomy output has been consistent over the last week and is having output currently, no fevers, patient appears dehydrated clinically on exam, plan for metabolic and infectious workup to assess for UTI or other occult acute issues, suspect most likely possible explanation would be dehydration malnutrition/failure to thrive, patient is already established with home health and virtual hospice due to lack of available home hospice staff in the area, will give IV fluids, reassess for disposition Lab Data Labs showing mild anemia 10.7, no leukocytosis, mild hypokalemia and hypomagnesemia 3.0 and 1.7 respectively, mildly decreased bicarbonate and mild increase in anion gap consistent with starvation ketosis, no severe hyponatremia, normal kidney function, no UTI, normal LFTs 09/13/25 13:04 09/13/25 13:04 Radiology Impressions Abdomen/Pelvis CT 09/13/25 12:30 IMPRESSION: 1. Interval postoperative changes of colostomy and ileostomy which appear patent. 2. No evidence of high-grade obstruction. 3. Mild RIGHT hydronephrosis is progressed compared to 08/15/2025 dilatation of the RIGHT proximal ureter and renal pelvis. No LEFT hydronephrosis. 4. Urine distended bladder with small amount of air in the nondependent bladder. 5. Suspected infectious or inflammatory colitis involving the residual colon. 6. Evidence of esophagitis and gastritis with a small to moderate esophageal hiatal hernia. 7. A few clustered loops of small bowel in the pelvis with air-fluid levels near the anastomosis may be due to adhesions although no evidence of high-grade obstruction. Laboratory Results WBC 7.55 10^3/uL (3.29-11.43) 09/13/25 13:04 RBC 3.93 10^6/uL (3.85-5.65) 09/13/25 13:04 Hgb 10.70 g/dL (11.27-16.99) L 09/13/25 13:04 Hct 33.0 % (36-47) L 09/13/25 13:04 MCV 84.0 fl (85-98) L 09/13/25 13:04 MCH 27.2 pg (27-33) 09/13/25 13:04 MCHC 32.4 g/dL (30-55) 09/13/25 13:04 RDW 22.0 % (12.1-15.1) H 09/13/25 13:04 Plt Count 317 10^3/cmm (157-399) 09/13/25 13:04 MPV 8.9 fL (7.4-10.4) 09/13/25 13:04 Neut % (Auto) 58.1 % 09/13/25 13:04 Lymph % (Auto) 31.7 % 09/13/25 13:04 Banks % (Auto) 8.1 % 09/13/25 13:04 Eos % (Auto) 1.2 % 09/13/25 13:04 Baso % (Auto) 0.5 % 09/13/25 13:04 Neut # (Auto) 4.39 10^3/uL (1.8-7.7) 09/13/25 13:04 Lymph # (Auto) 2.4 10^3/uL (0.8-4.8) 09/13/25 13:04 Banks # (Auto) 0.6 10^3/uL (0.2-0.9) 09/13/25 13:04 Eos # (Auto) 0.1 10^3/uL (0.0-0.8) 09/13/25 13:04 Baso # (Auto) 0.0 10^3/uL (0.0-0.1) 09/13/25 13:04 Nucleated RBC % (auto) 0 % 09/13/25 13:04 Nucleated RBCs # 0.0 /100WBC 09/13/25 13:04 Sodium 139 mmol/L (136-145) 09/13/25 13:04 Potassium 3.0 mmol/L (3.5-5.1) L 09/13/25 13:04 Chloride 106 mmol/L (98-107) 09/13/25 13:04 Carbon Dioxide 21 mmol/L (22-29) L 09/13/25 13:04 Anion Gap 15.0 (5-19) 09/13/25 13:04 BUN 10 mg/dL (8-23) 09/13/25 13:04 Creatinine 0.7 mg/dL (0.5-0.9) 09/13/25 13:04 GFR Calculation Not Reportable 09/13/25 13:04 Glucose 86 mg/dL (65-115) 09/13/25 13:04 Calculated Osmolality 286 mOsm/kg (285-295) 09/13/25 13:04 Calcium 8.3 mg/dL (8.5-10.5) L 09/13/25 13:04 Magnesium 1.7 mg/dL (1.7-2.3) 09/13/25 13:04 Total Bilirubin 0.4 mg/dL (0.15-1.2) 09/13/25 13:04 AST 24 U/L (0-32) 09/13/25 13:04 ALT 24 U/L (0-33) 09/13/25 13:04 Alkaline Phosphatase 107 U/L (35-105) H 09/13/25 13:04 Total Protein 6.8 g/dL (6.6-8.7) 09/13/25 13:04 Albumin 3.5 g/dL (3.5-5.2) 09/13/25 13:04 Globulin 3.3 g/dL (1.3-4.6) 09/13/25 13:04 Lipase 29 U/L (13-60) 09/13/25 13:04 Urine Color Yellow (Yellow) 09/13/25 13:29 Urine Appearance Clear (CLEAR) 09/13/25 13:29 Urine pH 6.5 (5-7) 09/13/25 13:29 Ur Specific [place] 1.010 (1.005-1.030) 09/13/25 13:29 Urine Protein Negative (Negative) 09/13/25 13:29 Urine Glucose (UA) Negative (Normal) 09/13/25 13:29 Urine Ketones Negative (Negative) 09/13/25 13:29 Urine Blood 1+ (Negative) A 09/13/25 13:29 Urine Nitrate Negative (Negative) 09/13/25 13:29 Urine Bilirubin Negative (Negative) 09/13/25 13:29 Urine Urobilinogen 0.2 mg/dL (Negative) 09/13/25 13:29 Ur Leukocyte Esterase Negative (Negative) 09/13/25 13:29 Urine RBC 3-5 /hpf (0-2) 09/13/25 13:29 Urine WBC 0-5 /hpf (0-5) 09/13/25 13:29 Ur Squamous Epith Cells 0-5 /hpf (0-5) 09/13/25 13:29 Amorphous Sediment Not Reportable 09/13/25 13:29 Urine Bacteria None seen /hpf (NONE) 09/13/25 13:29 Hyaline Casts 0-4 /lpf H 09/13/25 13:29 All radiology interpretation(s) finalized by discharge ED provider radiology interpretation(s): CT abdomen pelvis showing mild progression of right sided hydronephrosis still mild and without associated SANDRA, mild colitis, some dilated loops of bowel without high-grade bowel obstruction, surgical changes with patent ileostomy Discharge Plan Discharge Patient Disposition: Home Clinical Impression: Dehydration, Acute hypokalemia, Hypomagnesemia, Colitis Condition: Stable Prescriptions: New ondansetron 8 mg tablet,disintegrating 8 mg PO Q8H PRN (Reason: nausea and vomiting) 5 Days Qty: 20 0RF No Action escitalopram oxalate 10 mg tablet 10 mg PO DAILY 90 Days Qty: 90 2RF pantoprazole 40 mg tablet,delayed release (DR/EC) 40 mg PO DAILY Qty: 30 0RF enalapril maleate 10 mg tablet 10 mg PO DAILY Qty: 90 1RF ondansetron 4 mg tablet,disintegrating 4 mg PO Q8H PRN (Reason: nausea and vomiting) 30 Days Qty: 30 0RF Quebw-[id number] Enema 19-7 gram/118 mL Enema 133 ml CO Q12H Qty: 532 0RF levothyroxine [Synthroid] 100 mcg tablet 100 mcg PO DAILY Qty: 30 0RF Discharge Orders: Discharge ED (Routine); Ordered 09/13/25 Ordered By: Jacob Boone Referrals: RICHY Chávez FNP [Primary Care Provider, Family Practice] Patient Instructions: Patient Portal & Vi Instructions, Dehydration (DC) Print Language: Tuvaluan Coding Level of Care Code ED Jig And Fixture Builder Apprentice for Gena Lugo
[2025-09-13 13:14] VITALS: BP 160/91; PULSE 91; O2SAT 96
[2025-09-13 13:34] LABS: Alanine Aminotransferase 24 U/L (0-33); Albumin Level 3.5 g/dL (3.5-5.2); Alkaline Phosphatase 107 U/L (35-105); Anion Gap 15.0 (5-19); Aspartate Amino Transferase 24 U/L (0-32); Blood Urea Nitrogen 10 mg/dL (8-23); Calcium 8.3 mg/dL (8.5-10.5); Carbon Dioxide 21 mmol/L (22-29); Chloride 106 mmol/L (98-107); Creatinine Clr Calc Pharmacy 52.3533; Globulin 3.3 g/dL (1.3-4.6); Glucose 86 mg/dL (65-115); Lipase 29 U/L (13-60); Magnesium 1.7 mg/dL (1.7-2.3); Osmolality Calculated 286 mOsm/kg (285-295); Potassium 3.0 mmol/L (3.5-5.1); Sodium 139 mmol/L (136-145); Total Protein 6.8 g/dL (6.6-8.7)
[2025-09-13 13:42] LABS: Glucose Urine UA Negative (Normal); Nitrate Urine Negative (Negative); Specific Gravity, Urine 1.010 (1.005-1.030)
[2025-09-13] MEDS: iohexol 350 mg/mL 500 mL Btl (per mL) IV (13:55)
[2025-09-13 14:07] LABS: UA Slide Review UA Slide Review Perf
[2025-09-13] MEDS: magnesium sulfate premix 2 GM/50 ML PIGGYBACK IV (14:16)
[2025-09-13 15:58] VITALS: BP 162/85; PULSE 77; O2SAT 95
== END 2025-09-13 16:12 | disposition home or self-care (01) ==
PROVIDERS: Emergency Provider Student in an Organized Health Care Education/Training Program; PCP Nurse Practitioner Family
DX: E86.0 Dehydration (principal); E87.6 Hypokalemia; E83.42 Hypomagnesemia; K52.9 Noninfective gastroenteritis and colitis, unspecified; I10 Essential (primary) hypertension; Z85.9 Personal history of malignant neoplasm, unspecified
CPT/HCPCS: 74177; 80053; 81001; 83690; 83735; 85025; 96365; 96366; 96375; 99285; J1885; J2405; J3475; J3490; J7030; J9999

== ENCOUNTER 2025-09-16 10:00 | Oncology outpatient (recurring) (ONCR) | payer MEDICARE, MEDICAID, SELFPAY | END 2025-10-06 23:59 | disposition home or self-care (01) | PROVIDERS: PCP Nurse Practitioner Family; Visit Provider Internal Medicine Medical Oncology | DX: Z53.9 Procedure and treatment not carried out, unspecified reason (principal); C18.9 Malignant neoplasm of colon, unspecified; C79.9 Secondary malignant neoplasm of unspecified site | CPT/HCPCS: 99205 ==

== ENCOUNTER 2025-09-17 16:13 | Emergency (ER) | payer MEDICARE, MEDICAID, SELFPAY ==
--- OUTSIDE RECORDS SUMMARY | 2020-05-08 02:41 | XMS_ITS | Continuity of Care Document ---
Author Organization [facility] Address [address] [place] [address] Phone Care Team Providers Care Motorcycle Deliverer Name Role Phone No Information Unavailable Unavailable Procedures Procedure Date HT MUSCLE IMAGE SPECT, MULT CARDIOVASCULAR STRESS TEST Advance Directives Directive Yes / No Effective Date File Name No Information Encounters Encounter Description Practice Location Reason(s) For Visit Diagnoses Date Provider Providers Copied on Encounter [facility], [address], [place], [address], [place] tel:[phone] No Information 0 No Information [facility], [address], [place], [address], [place] tel:[phone] [facility] Phill Gamboa No Information 0 MD Mario Sheldon. [facility] [address] , [address], [place], [id number], [place]. tel:[phone] Referring Provider: Michael Fernandez MD, [address], [place], [address] . tel:[phone] Family History Family Member Type Diagnosis Age At Onset No Information Payers Payer name Insurance type Covered green party ID Authoriza tion(s) Medicare MB [id number] Medicaid [id number] Social History Type Description Quantity Date Captured Comments Sex Female Smoking Status No Information Chief Complaint And Reason For Visit No Information Reason For Referral Reason For Referral No Information History Of Present Illness Encounter Date Complaint History Of Prese nt Illness No Information Functional Status Date Functional Assessmen t No Information Instructions Date Instruction Additional Infor mation No Information Assessments Type Assessment Date No Information Patient Care Teams Name Effective Dates (start - stop) Status Members No Information
[2025-09-17 16:15] VITALS: PULSE 72; RESP 16; TEMP 36.6; O2SAT 99; BMI 27.4
--- NOTE | 2025-09-17 16:15 | ECG_ITS ---
[facility] 2025-[facility]17 Pat Name: Terrie Hamilton Department: Room: Gender: Female Sales Facilitator: : 1945 Requested By: Estrella Trujillo Order Number: [id number] Adam MD: Edgardo Mullen M.D. Measurements Intervals [place] Rate: 69 P: 27 RI: 192 QRS: -17 QRSD: 110 T: 48 QT: 379 QTc: 407 Interpretive Statements SINUS RHYTHM NONSPECIFIC T-WAVE ABNORMALITY No previous ECG available for comparison Electronically Signed On 09-18-2025 20:18:43 CHEF HEAD by Edgardo Mullen M.D. [email or web address]
--- NOTE | 2025-09-17 16:15 | W.ED.WEAKNES ---
HPI - Weakness General: Chief complaint: Weakness Stated complaint: Not feeling Well Time Seen by Provider: 09/17/25 16:13 History of Present Illness: 80-year-old female with a history of recent ileostomy and colostomy, history of colon cancer, GERD, pneumatosis intestinalis, anxiety, depression, hypothyroidism who presents to the emergency room with generalized weakness. She has had decreased urostomy and colostomy output. Decreased appetite. No abdominal pain. She had a small bowel obstruction last month and ultimately was found to have 2 separate colon tumors that were surgically removed. She saw oncology yesterday and there is plan for port placement, and chemotherapy. No altered mental status. No focal motor deficits. Related Data Home Medications ?Medication ?Instructions ?Recorded ?Confirmed enalapril maleate 10 mg tablet 10 mg PO DAILY 09/13/25 09/16/25 levothyroxine 25 mcg tablet See Rx Instructions .Route .COMPLEX 09/13/25 09/16/25 Previous Rx's ?Medication ?Instructions ?Recorded escitalopram oxalate 10 mg tablet 10 mg PO DAILY 90 days #90 tabs 03/11/25 pantoprazole 40 mg tablet,delayed 40 mg PO DAILY #30 tabs 09/05/25 release ondansetron 4 mg disintegrating 4 mg PO Q8H PRN nausea and 09/12/25 tablet vomiting 30 days #30 tabs ondansetron 8 mg disintegrating 8 mg PO Q8H PRN nausea and 09/13/25 tablet vomiting 5 days #20 tabs diaper,brief,adult,disposable #76 ea 09/16/25 (Depend Underwear For Women Large) miscellaneous medical supply #1 ea 09/16/25 prochlorperazine maleate 10 mg 10 mg PO .Q4 PRN nausea and 09/16/25 tablet (Compazine) vomiting #30 tabs underpads (Bed Underpads) #100 ea 09/16/25 Bed smalls #1 ea 09/17/25 Allergies Allergy/AdvReac Type Severity Reaction Status Date / Time Sulfa (Sulfonamide Allergy Intermediate sick rash Verified 09/16/25 10:06 Antibiotics) codeine Allergy made her Verified 09/16/25 10:06 feel off Penicillins Allergy Unknown Verified 09/16/25 10:06 Review of Systems Narrative: Constitutional symptoms: Negative except as documented in HPI. Skin symptoms: Negative except as documented in HPI. Eye symptoms: Negative except as documented in HPI. ENMT symptoms: Negative except as documented in HPI. Respiratory symptoms: Negative except as documented in HPI. Cardiovascular symptoms: Negative except as documented in HPI. Gastrointestinal symptoms: Negative except as documented in HPI. Genitourinary symptoms: Negative except as documented in HPI. Musculoskeletal symptoms: Negative except as documented in HPI. Neurologic symptoms: Negative except as documented in HPI. Psychiatric symptoms: Negative except as documented in HPI. Endocrine symptoms: Negative except as documented in HPI. PFS ED PFSH: Medical History (Updated 09/17/25 @ 19:34 by Estrella Erickson MD) Currently on bed rest Urinary incontinence Weakness Acquired absence of other specified parts of digestive tract Sigmoid colectomy with an ileostomy [facility], 08/21/2025 Anemia Metastatic adenocarcinoma Gastroesophageal reflux disease without esophagitis Pneumatosis intestinalis Mammogram declined Hypothyroid Hypothyroid Encounter to establish care Vitamin D deficiency Medication management Hypertension screen Anxiety and depression History of cardiac murmur History of thyroid storm Essential hypertension December 2020 Prolapsed bladder H/O radioactive iodine thyroid ablation November and December 2020 Surgical History Ileostomy status Sigmoid colectomy with an ileostomy [facility], 08/21/2025 H/O wrist surgery S/P subtotal thyroidectomy 46 years ago - [place] S/P cholecystectomy History of ankle surgery History of hysterectomy History of appendectomy Family History Other Hypertension Social History Smoking and tobacco/nicotine status: never used tobacco/nicotine Physical Exam Narrative: EXAM NARRATIVE: General: Alert, no acute distress. Skin: Warm, dry. Head: Normocephalic, atraumatic. Neck: Supple, trachea midline. Eye: Extraocular movements are intact. Ears, nose, mouth and throat: mucosa moist. Cardiovascular: Regular, Normal peripheral perfusion. Respiratory: Lungs are clear to auscultation, respirations are non-labored, breath sounds are equal, Symmetrical chest wall expansion. Gastrointestinal: Soft, Nontender, Non distended Musculoskeletal: Normal ROM, no deformity. Neurological: Alert and oriented, No focal neurological deficit observed. Psychiatric: Cooperative, appropriate mood & affect. Course Vital Signs: Vital signs: Vital Signs Temperature 97.8 F 09/17/25 16:15 Pulse Rate 72 09/17/25 16:15 Respiratory Rate 16 09/17/25 16:15 Pulse Oximetry 99 09/17/25 16:15 Oxygen Delivery Me thod Room Air 09/17/25 16:15 MDM - Weakness Medical Decision Making Medical decision making: Patient's reason for coming to the emergency room generalized weakness Social determinants patient is retired I reviewed the patient's medical record. 80-year-old female with a history of recent ileostomy and urostomy, history of colon cancer, GERD, pneumatosis intestinalis, anxiety, depression, hypothyroidism. She had a small bowel obstruction last month and ultimately was found to have 2 separate colon tumors that were surgically removed. She saw oncology yesterday and there is plan for port placement, and chemotherapy. I reviewed the patient's current home meds Enalapril. escitalopram levothyroxine Alternate historians: I did get history from the daughter. Says she has been fairly asymptomatic and she is been trying to push fluids. She said initially she was getting around pretty well but now she is very weak and does not want to get up at all. Differential diagnosis for patient presenting with generalized weakness including but not limited to and based on the above HPI, review of systems and physical exam: Sepsis. Dehydration. Renal failure. Electrolyte abnormalities. Anemia. Congestive heart failure. Hypotension. Coronary syndrome. Hepatitis. Cirrhosis. Infections such as pneumonia, urinary tract infection, [place] bourne illness, Cellulitis, Viral infections including influenza and Covid-19. Workup: labwork and lab/exam driven imaging ordered to evaluate, rule in and rule out above pathologies. EKG: Time 1626. Rate 69. Normal sinus rhythm, No ST-T changes, no ectopy, normal W[place] & QRS intervals, This was reviewed and interpreted by myself the ER physician at 1630 EKG: Time 1808. Rate 60. Normal sinus rhythm, No ST-T changes, no ectopy, normal [place] & QRS intervals, This was reviewed and interpreted by myself the ER physician at 1812. No significant change from EKG done previously today in the emergency room. chest x-ray: No acute process. No obvious infiltrates. No pneumothorax. No cardiomegaly. This was reviewed and interpreted by myself the emergency room physician Abdomen x-ray: Nonspecific bowel gas pattern. No evidence of free air or obstruction. This was reviewed and interpreted by myself the emergency room physician. I also reviewed the radiology report. Lab Review: Laboratory results were reviewed and interpreted by myself the emergency room physician. No leukocytosis. No anemia. Mild elevation in her creatinine over her baseline but is only at 1. Urinalysis is negative for infection. Flu COVID and RSV are negative. Lactic acid is negative. Assessment of risk: Level of risk: Moderate risk. Multiple comorbidities and elderly. Hospitalization considerations: I did consider and offer her admission today. Very unclear why she has this generalized weakness. She seems to respond to fluids so that it was given. She has no altered mental status. No focal motor deficits. Just generalized weakness. Daughter says she is comfortable taking her home and prefers to do that today because the patient wants to go home Reexamination: Patient remained stable. No increased work of breathing. No altered mental status. No focal motor deficits. Assessment and plan: Generalized weakness Dehydration 2 L normal saline bolus in the emergency room. - Discharged home - Discussed plan with patient. Answered any questions. - Evaluation and treatment of this problem were appropriate in the emergency setting. Lab Data 09/17/25 16:34 09/17/25 16:34 Radiology Impressions Abdomen X-Ray 09/17/25 16:43 IMPRESSION: No acute findings. Chest X-Ray 09/17/25 16:43 IMPRESSION: 1. Left retrocardiac opacities may represent atelectasis versus consolidation. 2. Small left pleural effusion. Laboratory Results WBC 8.18 10^3/uL (3.29-11.43) 09/17/25 16:34 RBC 4.36 10^6/uL (3.85-5.65) 09/17/25 16:34 Hgb 12.10 g/dL (11.27-16.99) 09/17/25 16:34 Hct 37.2 % (36-47) 09/17/25 16:34 MCV 85.3 fl (85-98) 09/17/25 16:34 MCH 27.8 pg (27-33) 09/17/25 16:34 MCHC 32.5 g/dL (30-55) 09/17/25 16:34 RDW 22.2 % (12.1-15.1) H 09/17/25 16:34 Plt Count 313 10^3/cmm (157-399) 09/17/25 16:34 MPV 9.0 fL (7.4-10.4) 09/17/25 16:34 Neut % (Auto) 58.9 % 09/17/25 16:34 Lymph % (Auto) 29.5 % 09/17/25 16:34 [place] % (Auto) 8.7 % 09/17/25 16:34 Eos % (Auto) 2.0 % 09/17/25 16:34 Baso % (Auto) 0.5 % 09/17/25 16:34 Neut # (Auto) 4.83 10^3/uL (1.8-7.7) 09/17/25 16:34 Lymph # (Auto) 2.4 10^3/uL (0.8-4.8) 09/17/25 16:34 [place] # (Auto) 0.7 10^3/uL (0.2-0.9) 09/17/25 16:34 Eos # (Auto) 0.2 10^3/uL (0.0-0.8) 09/17/25 16:34 Baso # (Auto) 0.0 10^3/uL (0.0-0.1) 09/17/25 16:34 Nucleated RBC % (auto) 0 % 09/17/25 16:34 Nucleated RBCs # 0.0 /100WBC 09/17/25 16:34 Sodium 134 mmol/L (136-145) L 09/17/25 16:34 Potassium 3.8 mmol/L (3.5-5.1) 09/17/25 16:34 Chloride 97 mmol/L (98-107) L 09/17/25 16:34 Carbon Dioxide 24 mmol/L (22-29) 09/17/25 16:34 Anion Gap 16.8 (5-19) 09/17/25 16:34 BUN 13 mg/dL (8-23) 09/17/25 16:34 Creatinine 1.0 mg/dL (0.5-0.9) H 09/17/25 16:34 GFR Calculation Not Reportable 09/17/25 16:34 Glucose 99 mg/dL (65-115) 09/17/25 16:34 Calculated Osmolality 278 mOsm/kg (285-295) L 09/17/25 16:34 Lactic Acid 0.9 mmol/L (0.5-2.2) 09/17/25 16:34 Calcium 9.6 mg/dL (8.5-10.5) 09/17/25 16:34 Total Bilirubin 0.5 mg/dL (0.15-1.2) 09/17/25 16:34 AST 29 U/L (0-32) 09/17/25 16:34 ALT 36 U/L (0-33) H 09/17/25 16:34 Alkaline Phosphatase 121 U/L (35-105) H 09/17/25 16:34 Troponin T Baseline 13 ng/L (0-10) H 09/17/25 16:34 Troponin T 120 Minute 10.80 ng/L (0-10) H 09/17/25 18:27 Delta Troponin T -2.20 ABS# (0-10) L 09/17/25 18:27 C-Reactive Protein 6.2 mg/L (0.0-4.9) H 09/17/25 16:34 Total Protein 7.5 g/dL (6.6-8.7) 09/17/25 16:34 Albumin 4.1 g/dL (3.5-5.2) 09/17/25 16:34 Globulin 3.4 g/dL (1.3-4.6) 09/17/25 16:34 Procalcitonin 0.06 ng/mL (0-0.5) 09/17/25 16:34 Urine Color Yellow (Yellow) 09/17/25 18:22 Urine Appearance Clear (CLEAR) 09/17/25 18:22 Urine pH 6.0 (5-7) 09/17/25 18:22 Ur Specific [place] 1.010 (1.005-1.030) 09/17/25 18:22 Urine Protein Negative (Negative) 09/17/25 18: Urine Glucose (UA) Negative (Normal) 09/17/25 18:22 Urine Ketones Negative (Negative) 09/17/25 18:22 Urine Blood 1+ (Negative) A 09/17/25 18:22 Urine Nitrate Negative (Negative) 09/17/25 18: Urine Bilirubin Negative (Negative) 09/17/25 18:22 Urine Urobilinogen 0.2 mg/dL (Negative) 09/17/25 18:22 Ur Leukocyte Esterase Negative (Negative) 09/17/25 18:22 Urine RBC 3-5 /hpf (0-2) 09/17/25 18:22 Urine WBC 0-5 /hpf (0-5) 09/17/25 18:22 Ur Squamous Epith Cells 0-5 /hpf (0-5) 09/17/25 18:22 Amorphous Sediment Not Reportable 09/17/25 18:22 Urine Bacteria None seen /hpf (NONE) 09/17/25 18:22 Hyaline Casts 9.51 /lpf 09/17/25 18:22 Influenza A (PCR) Negative (Negative) 09/17/25 16:49 Influenza Type B (PCR) Negative (Negative) 09/17/25 16:49 RSV (PCR) Negative (Negative) 09/17/25 16:49 SARS-CoV-2 (PCR) Negative (Negative) 09/17/25 16:49 All radiology interpretation(s) finalized by discharge Discharge Plan Discharge Patient Disposition: Home Clinical Impression: Generalized weakness, Dehydration Condition: Stable Prescriptions: No Action escitalopram oxalate 10 mg tablet 10 mg PO DAILY 90 Days Qty: 90 2RF pantoprazole 40 mg tablet,delayed release (DR/EC) 40 mg PO DAILY Qty: 30 0RF ondansetron 4 mg tablet,disintegrating 4 mg PO Q8H PRN (Reason: nausea and vomiting) 30 Days Qty: 30 0RF (DME) miscellaneous medical supply [facility] See Rx Instructions .Route Qty: 1 0RF Rx Instructions: Semi-Electric Hospital Bed (DME) underpads [Bed Underpads] Pad See Rx Instructions .Route Qty: 100 2RF Rx Instructions: As directed BID and PRN (DME) [facility] Underwear For Women g [facility] See Rx Instructions .Route Qty: 76 2RF Rx Instructions: BID and PRN prochlorperazine maleate [Compazine] 10 mg tablet 10 mg PO .Q4 PRN (Reason: nausea and vomiting) Qty: 30 3RF (DME) Bed smalls See Rx Instructions .Route .MEDSUPPLY Qty: 1 0RF Rx Instructions: As directed ondansetron 8 mg tablet,disintegrating 8 mg PO Q8H PRN (Reason: nausea and vomiting) 5 Days Qty: 20 0RF levothyroxine 25 mcg tablet See Rx Instructions .ROUTE .COMPLEX Rx Instructions: Take 1 tablet (25 mcg) by mouth on Mon, Tu, Wed and . Take 2 tablets (50 mcg)on Fri, Sat, and Sun. enalapril maleate 10 mg Tablet 10 mg PO DAILY Discharge Orders: Discharge ED (Routine); Ordered 09/17/25 Ordered By: Estrella Erickson Referrals: RICHY Chávez, STRUCTURAL STEEL WORKER HELPER [Primary Care Provider, Family Practice] Discharge Diet: Usual diet Discharge Activity: Increase activity as tolerated Patient Instructions: Weakness (ED), Opioid Safety, Pain Management, Patient Portal & Vi Instructions Activity Restrictions/Additional Instructions: Thank you for choosing [facility] for your healthcare needs today. You have been screened and evaluated and felt safe for discharge. Health conditions do change or evolve sometimes and as such it is important that you follow up with your Primary Doctor to be re checked, 3-5 days is a general good time frame for follow up. You are always welcome to return to the ED for re assessment if your symptoms are worsening or you have new concerns Print Language: Kazakh Coding Level of Care Code ED Post Tensioning Ironworker for Gena Lugo
--- OUTSIDE RECORDS SUMMARY | 2025-09-17 16:16 | XMS_ITS | Encounter Summary ---
Author Organization [facility] Address [address] [place] [address] Care Team Providers Care Animal Caretaker Supervisor Name Role Phone Unavailable Primary Care Provider Unavailabl e Encounter Details Date Type Department Care Team (Late st Contact Info) Description 08/08/2025 Results Follow-Up [facility] Emergency Medicine [address] [place] [phone] Rich Jacobs MD [address] [address] [place] [address] URINE CULTURE Social History Tobacco [...] worry about transportation for future doctor visits, last picker medication, etc.? 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
--- OUTSIDE RECORDS SUMMARY | 2025-09-17 16:16 | XMS_ITS | Patient Health Record ---
Author Organization [facility] Address [address] [place] [address] Care Team Providers Care Chick Sexer Name Role Phone DR. Dereck Sprague Primary Care Provider [phone] Allergies Allergen (clinical drug ingredient) Drug/Non Drug [...] Date Medicare [address] [place] [address] Alfosno Terrie Self - patient is the insured Medicaid [address] [place] [id number] Alfonso Terrie Self - patient is the insured Medicaid Dental [address] [place] [id number] AlfonsoTerrie Self - patient is the insured [employer] [address] [place] [address] [phone] Caro Hamiltonita Self - patient is the insured Medical (General) History Medical History History ICD Code heart murmur Thyroid disease HIGH BLOOD PRESSURE
--- OUTSIDE RECORDS SUMMARY | 2025-09-17 16:16 | XMS_ITS | Clinical Summary ---
Author Organization [facility] Address [address] [place]: Epic Prelude ADT MELANIE GOMEZ [address] Care Team Providers Care Marble Supervisor Name Role Phone Unavailable Primary Care [...] - 08/10/2025 11:59 PM CDT Hospital Encounter [facility] [place] [address] [place] [phone] Ambulance, [facility] Discharge Disposition: [facility] 08/08/2025 5:25 PM CDT - 08/08/2025 5:38 PM CDT Emergency [facility] Emergency Medicine [address] [place] [phone] Bal Moreno MD Discharge Disposition: Left without being seen 08/08/2025 Results Follow-Up [facility] Emergency Medicine [address] [place] [phone] Rich Jacobs MD URINE CULTURE 08/06/2025 4:50 PM CDT - 08/06/2025 6:19 PM CDT Emergency [facility] Emergency Medicine [address] [place] [phone] Rich Jacobs MD Chronic idiopathic constipation (Primary [...] worry about transportation for future doctor visits, picking machine operator medication, etc.? 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 Gender Identity Not on file [...] - 2 /hpf 08/06/2025 5:49 PM CDT [facility] RBC UA 0-2 0 - 2 /hpf 08/06/2025 5:49 PM CDT [facility] BACTERIA UA 1+(A) Negative /hpf 08/06/2025 5:49 PM CDT [facility] EPITHELIAL CELLS, URINE 0-5 0 - 5 /hpf 08/06/2025 5:49 PM CDT [facility] Urine URINE SPECIMEN OBTAINED BY CLEAN CATCH PROCEDURE / Unknown Collection / Unknown 08/06/2025 5:12 PM CDT 08/06/2025 5:41 PM CDT us Rich Jacobs MD URINE ORDERABLES Final Result [facility] # [id number] [address] [place] [address] * (ABNORMAL) URINALYSIS WITH REFLEX MICROSCOPIC (08/06/2025 5:12 PM CDT) COLOR UA Yellow Pale to Dark Yellow 08/06/2025 5:49 PM CDT [facility] CLARITY UA Clear Clear 08/06/2025 5:49 PM CDT [facility] SPECIFIC GRAVITY UA 1.015 1.003 - 1.035 08/06/2025 5:49 PM CDT [facility] PH UA 5.5 5.0 - 8.0 08/06/2025 5:49 PM CDT [facility] LEUKOCYTE ESTERASE UA 1+(A) Negative 08/06/2025 5:49 PM CDT [facility] NITRITE UA Negative Negative 08/06/2025 5:49 PM CDT [facility] PROTEIN UA Negative Negative 08/06/2025 5:49 PM CDT [facility] GLUCOSE UA Negative Negative 08/06/2025 5:49 PM CDT [facility] KETONES UA Negative Negative 08/06/2025 5:49 PM CDT [facility] UROBILINOGEN UA 0.2 <2.0 mg/dL 5:49 PM CDT [facility] BILIRUBIN UA Negative Negative 08/06/2025 5:49 PM CDT [facility] BLOOD UA 1+(A) Negative 08/06/2025 5:49 PM CDT [facility] Urine URINE SPECIMEN OBTAINED BY CLEAN CATCH PROCEDURE / Unknown Collection / Unknown 08/06/2025 5:12 PM CDT 08/06/2025 5:41 PM CDT us Rich Jacobs MD URINE ORDERABLES Final Result [facility] CLIA # [id number] [address] [place] [address] * URINE CULTURE (08/06/2025 5:12 PM CDT) CULTURE Polymicrobial growth consistent with normal urethral jean marie and/or colonizing bacteria 08/08/2025 12:14 PM CDT [facility] Urine URINE SPECIMEN OBTAINED BY CLEAN CATCH PROCEDURE / Unknown Collection / Unknown 08/06/2025 5:12 PM CDT 08/06/2025 6:02 PM CDT us Rich Jacobs MD MICROBIOLOGY - GENERAL ORDERABL ES Final Result [facility] CLIA # [id number] [address] [facility] [place] [address] from Last 3 Months Insurance MEDICAID [place]ARE PART A AND B
--- NOTE | 2025-09-17 16:43 | XRR_ITS ---
PROCEDURE INFORMATION: Exam: XR Abdomen Exam date and time: 09/17/2025 4:46 PM Age: 80 years old Clinical indication: Weakness TECHNIQUE: Imaging protocol: Radiologic exam of the abdomen. Views: Frontal supine view of the abdomen. 1 View. COMPARISON: CT abdomen pelvis w con* [id number] 09/13/2025 1:52 PM FINDINGS: Gastrointestinal tract: Nonobstructive bowel gas pattern. Organs: Cholecystectomy clips in the right upper quadrant. Bones/joints: Unremarkable. XR/XR abdomen 1V* [id number] IMPRESSION: No acute findings.
--- NOTE | 2025-09-17 16:43 | XRR_ITS ---
PROCEDURE INFORMATION: Exam: XR Chest Exam date and time: 09/17/2025 4:45 PM Age: 80 years old Clinical indication: Weakness TECHNIQUE: Imaging protocol: Radiologic exam of the chest. Views: 1 view. COMPARISON: CR (CHEST, ) 08/15/2025 3:45 PM FINDINGS: Lungs: Left retrocardiac opacities. The remaining lungs are clear. Pleural spaces: Small left pleural effusion. No pneumothorax. Heart/Mediastinum: Unremarkable. No cardiomegaly. Bones/joints: Unremarkable. XR/XR chest 1V portable [id number] IMPRESSION: 1. Left retrocardiac opacities may represent atelectasis versus consolidation. 2. Small left pleural effusion.
[2025-09-17 16:50] LABS: Hematocrit 37.2 % (36-47); Hemoglobin 12.10 g/dL (11.27-16.99); Mean Corpuscular HGB Conc 32.5 g/dL (30-55); Mean Corpuscular Hemoglobin 27.8 pg (27-33); Mean Corpuscular Volume 85.3 fl (85-98); Nucleated Red Blood Cells % 0 %; Platelet Count 313 10^3/cmm (157-399); Red Blood Count 4.36 10^6/uL (3.85-5.65); White Blood Count 8.18 10^3/uL (3.29-11.43)
[2025-09-17 17:23] LABS: Troponin(5th) Baseline 13 ng/L (0-10)
[2025-09-17 17:25] LABS: Lactic Sepsis W/Reflex 0.9 mmol/L (0.5-2.2)
[2025-09-17 17:28] LABS: Alanine Aminotransferase 36 U/L (0-33); Albumin Level 4.1 g/dL (3.5-5.2); Alkaline Phosphatase 121 U/L (35-105); Anion Gap 16.8 (5-19); Aspartate Amino Transferase 29 U/L (0-32); Blood Urea Nitrogen 13 mg/dL (8-23); Calcium 9.6 mg/dL (8.5-10.5); Carbon Dioxide 24 mmol/L (22-29); Chloride 97 mmol/L (98-107); Creatinine Clr Calc Pharmacy 43.8104; Globulin 3.4 g/dL (1.3-4.6); Glucose 99 mg/dL (65-115); Osmolality Calculated 278 mOsm/kg (285-295); Potassium 3.8 mmol/L (3.5-5.1); Sodium 134 mmol/L (136-145); Total Protein 7.5 g/dL (6.6-8.7)
[2025-09-17 17:34] LABS: Respiratory Syncytial Virus Ce NEGATIVE (Negative); SARS-CoV-2 PCR NEGATIVE (Negative)
[2025-09-17 17:34] LABS: Procalcitonin 0.06 ng/mL (0-0.5)
--- NOTE | 2025-09-17 18:15 | ECG_ITS ---
[facility] Test Date: 2025-09-17 Pat Name: Terrie Hamilton Department: Room: Gender: Female Electrician Research: : 1945 Requested By: Estrella Trujillo Order Number: [id number] Reading MD: Measurements Intervals [place] Rate: 60 P: 53 CA: 222 QRS: -5 QRSD: 106 T: 50 QT: 444 QTc: 445 Interpretive Statements SINUS RHYTHM WITH FIRST DEGREE AV BLOCK [email or web address]
[2025-09-17 18:42] LABS: Glucose Urine UA Negative (Normal); Nitrate Urine Negative (Negative); Specific Gravity, Urine 1.010 (1.005-1.030)
[2025-09-17 19:16] LABS: Troponin 5 2HR 10.80 ng/L (0-10)
[2025-09-17 19:18] LABS: Troponin 5 2HR Delta -2.20 ABS# (0-10)
[2025-09-17 20:30] VITALS: BP 169/79; PULSE 67; O2SAT 100
== END 2025-09-17 20:41 | disposition home or self-care (01) ==
PROVIDERS: Emergency Provider Emergency Medicine; PCP Nurse Practitioner Family
DX: R53.1 Weakness (principal); E86.0 Dehydration; Z11.52 Encounter for screening for COVID-19; I10 Essential (primary) hypertension; Z85.9 Personal history of malignant neoplasm, unspecified; Z85.038 Personal history of other malignant neoplasm of large intestine
CPT/HCPCS: 36415; 71045; 74018; 80053; 81001; 83605; 84145; 84484; 85025; 86140; 87040; 87637; 93005; 96360; 96361; 99285; J7030